=== PATIENT | female | born 1995 ===

== ENCOUNTER 2021-03-01 01:32 | Emergency (ER) | payer MEDICAID, SELFPAY ==
[2021-03-01 02:08] VITALS: BP 123/60; PULSE 103; RESP 14; TEMP 36.2; O2SAT 100; BMI 27.1
[2021-03-01 02:57] VITALS: BP 124/71; PULSE 108; RESP 16; TEMP 37.1; O2SAT 100
[2021-03-01 03:31] LABS: Appearance Urine CLEAR; Color Urine YELLOW; Glucose Urine UA NEG (NEG); Leukocyte Esterase Urine NEG (NEG); Nitrite Urine NEG (NEG); Urine Blood NEG (NEG); Urine Ketones NEG (NEG); Urine Protein NEG (NEG-TRACE)
[2021-03-01 03:35] LABS: UPreg QC Valid YES; Urine Pregnancy POSITIVE (NEGATIVE)
--- NOTE | 2021-03-01 03:55 | ED.GENADULT ---
HPI - General Adult General Chief complaint: Fever Stated complaint: Flu like/Vaginal Bleeding Time Seen by Provider: 03/01/21 02:25 Source: patient Mode of arrival: ambulatory History of Present Illness HPI narrative: 25-year-old female presents with subjective fevers, body aches, headache and states that she has having lower abdominal pelvic cramping along with vaginal bleeding but reports that she also has a positive urine test. She states that she was worked up it [facility] just prior to presentation here but did not stay to be seen. She denies having received COVID-19 vaccine in states her LMP is 9/6. Related Data Previous Rx's Medication Instructions Recorded amoxicillin 500 mg capsule 1,000 mg PO TID 5 Days #30 cap 03/01/21 Allergies Allergy/AdvReac Type Severity Reaction Status Date / Time No Known Allergies Allergy Verified 03/01/21 03:04 Review of Systems Review of Systems: Pertinent positives and negatives as stated in HPI 10 point review of systems is otherwise negative. PMFSH Past Medical History Source: nursing notes reviewed Social History Social History Advance Directives: No Advance Directives Information Provided: No Patient : No Physical Exam Vital Signs: Vital Signs: Last Vital Signs Temp 99.1 F 03/01/21 04:19 Pulse 118 H 03/01/21 04:19 Resp 16 03/01/21 04:19 BP 124/61 03/01/21 04:19 Pulse Ox 99 03/01/21 04:19 Body Mass Index 27.1 VITAL SIGNS: Reviewed. GENERAL: Well developed, well nourished, in no acute distress. HEAD: Normocephalic/atraumatic EYES: PERRLA, EOMI EARS: Ext canals without abnormality, TMs non-bulging and non-erythematous NOSE: Nares patent bilateral OROPHARYNX: no oral lesions noted, posterior pharynx clear and non-erythematous without noted tonsillar enlargement/erythema/exudates NECK: Supple, no adenopathy LUNGS: Normal breath sounds. No adventitious sounds or accessory muscle use. SpO2<100> CARDIOVASCULAR: Regular rate and rhythm without noted murmurs ABDOMEN: Soft, non-tender, non-distended with bowel sounds. SKIN: Inspection of the skin reveals no rashes NEUROLOGIC: Alert and oriented x 4. Course Course Course Narrative: 25-year-old female with history and clinical presentation after review of all lab work completed at [facility] which indicates that patient is negative for rapid strep as well as negative for COVID-19. However, on review of remaining lab work patient is noted to have a leukocytosis with a negative urinalysis. Patient is noted to be tachycardic here, however afebrile. Will pursue CRP, Monospot, as well as a quantitative beta hCG. On review of all investigations Monospot was negative, bhcg-37, and CRP elevated at 5.19. Taken in conjunction patient was informed that either the was very early on or the vaginal bleeding may be secondary to ongoing miscarriage. However, due to positive test will defer proceeding with chest x-ray to confirm clinical diagnosis of pneumonia and patient will be presumptively provided with antibiotics for community-acquired pneumonia with amoxicillin. Patient was aware of all results and plan. She was recommended to repeat her beta-hCG levels in 1 week. Medical Decision Making Lab Data Labs: Lab Results 03/01/21 03/01/21 03/01/21 Range/Units 03:02 03:02 04:37 C-Reactive Protein 5.19 H (< or = 0.50) mg/dL Beta HCG, Quant 37 mIU/mL Urine Color YELLOW Urine Appearance CLEAR Urine pH 6.0 (5.0-8.0) Ur Specific [place] 1.020 (1.005-1.025) Urine Protein NEG (NEG-TRACE) MG/DL Urine Glucose (UA) NEG (NEG) MG/DL Urine Ketones NEG (NEG) MG/DL Urine Blood NEG (NEG) Urine Nitrite NEG (NEG) Ur Leukocyte Esterase NEG (NEG) Urine Test POSITIVE H (NEGATIVE) Monoscreen (Negative) 03/01/21 Range/Units 04:37 C-Reactive Protein (< or = 0.50) mg/dL Beta HCG, Quant mIU/mL Urine Color Urine Appearance Urine pH (5.0-8.0) Ur Specific [place] (1.005-1.025) Urine Protein (NEG-TRACE) MG/DL Urine Glucose (UA) (NEG) MG/DL Urine Ketones (NEG) MG/DL Urine Blood (NEG) Urine Nitrite (NEG) Ur Leukocyte Esterase (NEG) Urine Test (NEGATIVE) Monoscreen Negative (Negative) Discharge Plan Discharge Clinical Impression: Pneumonia affecting Patient Disposition: Home, Self-Care Instructions: (ED), Pneumonia (ED) Additional Instructions: 1. Complete the entire course of antibiotics. 2. Recommend following up with your primary care provider on Wednesday morning and obtaining a prescription to repeat your beta hCG. Return to the ER for acute worsening of symptoms. Prescriptions: New amoxicillin 500 mg capsule 1,000 mg PO TID 5 Days Qty: 30 RF: 0 Referrals: [facility] [Primary Care Provider] - 2 days
[2021-03-01 04:19] VITALS: BP 124/61; PULSE 118; RESP 16; TEMP 37.3; O2SAT 99
[2021-03-01] MEDS: Acetaminophen 325 MG TABLET 975 MG PO (04:33)
[2021-03-01 05:03] LABS: Monotest Negative (Negative)
[2021-03-01 05:04] LABS: C Reactive Protein 5.19 mg/dL (< or = 0.50)
[2021-03-01 05:24] LABS: HCG Quantitative 37 mIU/mL
[2021-03-01 06:05] VITALS: BP 105/59; PULSE 98; RESP 16; TEMP 37.1; O2SAT 98
[2021-03-01] MEDS: Amoxicillin 500 MG CAPSULE 1000 MG PO (06:06)
== END 2021-03-01 06:20 | disposition home or self-care (01) ==
PROVIDERS: Emergency Provider Student in an Organized Health Care Education/Training Program
DX: O99.511 Diseases of the respiratory system complicating pregnancy, first trimester (principal); J18.9 Pneumonia, unspecified organism; R50.9 Fever, unspecified; Z3A.01 Less than 8 weeks gestation of pregnancy
CPT/HCPCS: 36415; 81003; 81025; 84702; 86140; 86308; 99283; 99284

== ENCOUNTER 2021-07-08 11:02 | Emergency (ER) | payer MEDICAID, SELFPAY ==
[2021-07-08 12:21] VITALS: BP 130/56; PULSE 75; RESP 18; TEMP 36.7; O2SAT 100; BMI 26.2
[2021-07-08 13:11] LABS: COVID-19 Test Positive (Negative)
--- NOTE | 2021-07-08 13:11 | ED_ITS ---
HPI - General Adult General Chief complaint: General Medical Stated complaint: fever/headache Time Seen by Provider: 07/08/21 13:11 Source: patient Mode of arrival: ambulatory Limitations: no limitations History of Present Illness HPI narrative: 26-year-old female came in for evaluation of generalized weakness, headache, coughing, chest pain with coughing. No sick contact exposure, no recent travel. Patient took 1 dose of COVID Pfizer vaccination. Related Data Previous Rx's Medication Instructions Recorded amoxicillin 500 mg capsule 1,000 mg PO TID 5 Days #30 cap 03/01/21 Allergies Allergy/AdvReac Type Severity Reaction Status Date / Time No Known Allergies Allergy Verified 03/01/21 03:04 Review of Systems Review of Systems: All other systems are reviewed and are negative Constitutional: Reports as per HPI and Reports no additional constitutional complaints Eyes: Reports as per HPI and Reports no additional eye complaints Reports system reviewed and no additional complaints, except as documented Cardiovascular: Reports as per HPI and Reports no additional cardiovascular complaints Respiratory: Reports as per HPI and Reports no additional respiratory complaints Gastrointestinal: Reports as per HPI and Reports no additional gastrointestinal complaints Genitourinary: Reports no additional female genitourinary complaints Musculoskeletal: Reports no additional musculoskeletal complaints Skin/Breast: Reports system reviewed and no additional complaints, except as docu Psychiatric: Reports no additional psychiatric complaints Endocrine: Reports no additional endocrine complaints Hematologic/Lymphatic: Reports no additional hematologic/lymphatic complaints Allergic/Immunologic: Reports no additional allergic/immunologic complaints Reports system reviewed and no additional complaints, except as documented and Reports Abnormal speech present [facility] Social History Social History Advance Directives: No Advance Directives Information Provided: No Patient : Yes Physical Exam Vital Signs: Vital Signs: Last Vital Signs Temp 98.1 F 07/08/21 12:21 Pulse 75 07/08/21 12:21 Resp 18 07/08/21 12:21 BP 130/56 L 07/08/21 12:21 Pulse Ox 100 07/08/21 12:21 BMI result Body Mass Index 26.2 Vital signs have been reviewed as appeared to be correct. Blood pressure normal. Heart rate normal. Respiration rate normal. Temperature normal. Oxygen saturation normal. Appearance: Alert. Oriented X3. No acute distress. Head: Normal external exam. Normocephalic. Atraumatic. No Crowder signs noted. No raccoon eyes noted Eyes: PERRLA. EOMI. Conjunctiva and sclera normal. Eyelids normal. ENT: TM's Normal. Pharynx normal. Uvula midline. Moist mucous membranes. No trismus noted. No drooling noted. No muffled voice noted. Neck: Normal inspection. Neck supple. FROM. No adenopathy. Thyroid Normal. No meningeal signs. No neck mass noted. CVS: Normal heart rate and rhythm. Heart sound normal. No murmurs noted. Pulses normal throughout. Respiratory: No respiratory distress. Painless inspiration. Breath sounds normal. No wheezes/rales/rhonchi noted. Chest nontender. No accessory muscle usage noted or decreased air movement noted. Abdomen: Soft and nontender. Bowel sounds normal in all 4 quadrants. No distention noted. No organomegaly noted. No visible injury noted. Back: No CVA tenderness. Full range of motion noted. Skin: Skin warm and dry. Normal skin color. Normal skin turgor. No rashes/lesions/lacerations noted. Extremities: No lower extremity edema. Extremities exhibit normal range of motion. Extremities nontender. Neuro: Oriented X 3. Cranial nerve exam: II-XII are grossly intact No motor deficit. No sensory deficit. Reflexes normal. Course Course Course Narrative: Assessment and plan. 26-year-old female came in with viral infection symptoms, patient tested positive for COVID. Patient was instructed to self quarantine, both keep social distancing, frequent hand washing, wear that face mask at all times Medical Decision Making Lab Data Lab results reviewed: Yes I reviewed the patient's lab results. Labs: Lab Results 07/08/21 Range/Units 12:44 COVID-19 (NARINDER) Positive A (Negative) COVID-19 Clin Com See Note Discharge Plan Discharge Clinical Impression: COVID-19 virus infection Patient Disposition: Home, Self-Care Instructions: COVID-19 (Coronavirus Disease 2019) (ED) Prescriptions: No Action amoxicillin 500 mg capsule 1,000 mg PO TID 5 Days Qty: 30 RF: 0 Referrals: [facility] [Primary Care Provider] - 2 days Stand Alone Forms: Work/School Release
== END 2021-07-08 13:36 | disposition home or self-care (01) ==
PROVIDERS: Emergency Provider Emergency Medicine
DX: U07.1 COVID-19 (principal)
CPT/HCPCS: 87635; 99283

== ENCOUNTER 2022-12-02 11:59 | Emergency (ER) | payer MEDICAID, SELFPAY ==
--- NOTE | ~2022-12-02 | XR_ITS ---
EXAMINATION: XR CHEST CLINICAL INFORMATION: Pain COMPARISON: Previous chest x-ray April 2017 TECHNIQUE: 2 views of the chest were obtained. FINDINGS: No significant abnormality is noted involving the heart, lungs, mediastinum, bony thorax or soft tissues. XR/XR chest 2V IMPRESSION: Unremarkable examination.
[2022-12-02 12:29] VITALS: BP 134/87; PULSE 81; RESP 18; TEMP 36.4; O2SAT 100; BMI 27.7
--- NOTE | 2022-12-02 12:30 | ED_ITS ---
HPI - Dental/Oral General Chief complaint: Dental/Oral Stated complaint: pain in molar, hurts to breath Time Seen by Provider: 12/02/22 14:12 Source: patient, RN notes reviewed and old records reviewed Mode of arrival: ambulatory History of Present Illness HPI Narrative: 27-year-old female with no significant past medical history presenting to the ED complaining of acute on chronic left lower molar pain and intermittent lung pain with deep breathing x 2 months. Admits saw dentist last week, attempted root canal however patient was too sensitive, states has been taking amoxicillin for about 5 days without relief. Denies fall/injury, trauma, pedal edema, calf tenderness, recent travel, cigarette smoking, history of clots, hematu deysi/dysuria. Admits does have Depo-Provera MD Complaint: tooth pain Related Data Previous Rx's Medication Instructions Recorded amoxicillin 500 mg capsule 1,000 mg PO TID 5 days #30 caps 03/01/21 tramadol 50 mg tablet 50 mg PO Q8H PRN pain, severe 3 12/02/22 days #5 tabs Allergies Allergy/AdvReac Type Severity Reaction Status Date / Time No Known Allergies Allergy Verified 03/01/21 03:04 Review of Systems Review of Systems: Constitutional: No Fever, No Chills ENT/Mouth: +dental pain, No Ear Pain, No Nasal Congestion, No sore throat, No Rhinorrhea, No Swallowing Difficulty Cardiovascular: No Chest Pain, No SOB, +lung pain Respiratory: No Cough, No Sputum, No Wheezing Gastrointestinal: No Nausea, No Vomiting, No Abdominal pain Genitourinary: No Dysuria, No Hematuria, No Urinary Incontinence/retention, No Flank Pain Musculoskeletal: No joint pain, No Myalgias Skin: No Skin Lesions, No rash Neuro: No Weakness Yes all other systems are reviewed and are negative Constitutional: Constitutional: Reports as per [facility] Past Medical History Attestation statement: The following information was validated with the patient. Source: old records reviewed Social History Social History Alcohol intake: never Smoked in Last 30 Days: No Use of substances other than those prescribed or required for medical reasons: No Advance Directives: No Advance Directives Information Provided: No Physical Exam Vital Signs: Vital Signs: Last Vital Signs Temp 97.6 F 12/02/22 12:29 Pulse 81 12/02/22 12:29 Resp 18 12/02/22 12:29 BP 134/87 12/02/22 12:29 Pulse Ox 100 12/02/22 12:29 O2 Del Method Nasal Cannula 12/02/22 12:29 BMI result Body Mass Index 27.7 Const: General: cooperative, healthy appearing and no acute distress Orientation/consciousness: patient oriented x3 Limitations: no limitations HEENT: Other: + left lower molar cracked with previous filling. Mild gingival tenderness, no appreciable swelling/erythema, no fluctuance or induration. Head: Yes normal to inspection and Yes atraumatic Ears: hearing grossly normal bilaterally and mastoids normal General nose exam: Normal external nose present Face and sinus: Yes normal facial exam and No edema Throat: Yes posterior oropharynx normal, Yes tonsils normal and Yes uvula midline Eyes: General: appearance normal, both eyes and all related structures EOM: EOMs intact bilaterally Neck: Neck: Yes normal visual inspection and Yes no meningeal signs Chest: Chest palpation & inspection: normal inspection of the chest, no crepitus and no tenderness Resp: Effort & Inspection: normal respiratory effort, no respiratory distress and no stridor Auscultation: clear to auscultation bilaterally Cardio: Rate: regular rate Heart sounds: S1 normal heart sound present and S2 normal heart sound present GI: Inspection: Yes normal to inspection Palpation (GI): Soft to palpation, nontender and no guarding : General: Yes no CVA tenderness Back/Spine/Pelvis: Back: no CVA tenderness Skin: Rashes: no rashes Wounds: no wounds Neuro: General: patient oriented x3, tone normal and no meningeal signs Gait exam (Neuro): Normal gait present Extrem: General: Yes normal to inspection, Yes no pedal edema and Yes no calf tenderness Course Course Course Narrative: RME - 27 yo female presents to the ER for evaluation of left lower dental pain for the last 2-3 weeks. Is currently on abx from her dentist who she saw 1.5 weeks ago for the pain. Also reports pain when she breaths in both of her lungs & chest that started 2 months ago. SpO2 100%. HR 80s. Lungs CTAB Plan: CXR, EKG, dental eval 1415--XR chest 2V IMPRESSION: Unremarkable examination. 1440--patient eloped the ED after labs were drawn as needed to pick son up from school. Medical Decision Making Medical Decision Making MDM Narrative: 27-year-old female with no significant past medical history presenting to the ED complaining of acute on chronic left lower molar pain and intermittent lung pain with deep breathing x 2 months. On exam vital signs stable, NAD, nontoxic appearing, physical exam as noted above. Left lower molar gingival tenderness without appreciable abscess. Uvula midline, talking in complete sentences, lung s CTA, no rash. Concern for dental caries vs gingivitis vs possible PE or pneumonia although less likely with duration of symptoms. ACS unlikely. Plan: EKG, CXR, labs Please refer to course for remaining clinical decision making, interpretation of labs/imaging results, and discussions with consultants and/or family members. Differential Diagnosis Differential Diagnoses: The differential diagnosis associated with the presentation includes As above Admission/Observation Consideration of admission/observation: Escalation of care including admission/observation considered Lab Data [facility] Lab Attestation statement: I reviewed the patient's lab results. 12/02/22 14:42 12/02/22 14:42 Labs: Lab Results 12/02/22 12/02/22 12/02/22 Range/Units 14:42 14:42 14:42 WBC 8.0 (4.8-10.8) X10*3/uL RBC 5.11 (4.20-5.50) X10*6/uL Hgb 13.3 (12.0-16.0) g/dl Hct 40.7 (37.0-47.0) % MCV 79.6 L (80.0-98.0) fL MCH 26.0 L (27.0-33.0) pg MCHC 32.7 (31.0-35.0) g/dl RDW 12.7 (11.0-16.0) % Plt Count 277 (160-400) X10*3/uL MPV 10.3 (9.4-12.3) fL Immature Gran % (Auto) 0.2 (0.0-0.4) % Neut % (Auto) 66.6 (45-73) % Lymph % (Auto) 27.3 (20-40) % [place] % (Auto) 5.5 (2-11) % Eos % (Auto) 0.0 (0-4) % Baso % (Auto) 0.4 (0-2) % Lymph # (Auto) 2.2 (1.2-4.9) X10*3/uL [place] # (Auto) 0.4 (0.1-1.2) X10*3/uL Eos # (Auto) 0.0 (0.0-0.4) X10*3/uL Baso # (Auto) 0.0 (0.0-0.2) X10*3/uL Abs Immat Gran (auto) 0.02 (0.00-0.03) X10*3/uL Absolute Neuts (auto) 5.3 (2.0-8.3) x10*3/uL Absolute Nucleated RBC 0.000 (0.0-0.012) X10*3/uL Nucleated RBC % (auto) 0.0 (0.0-0.2) /100WBC D-Dimer High Sensitivty < 150 NG/ML Sodium 141 (135-145) mmol/L Potassium 3.9 (3.3-5.1) mmol/L Chloride 107 (96-108) mmol/L Carbon Dioxide 27 (22-29) mmol/L Anion Gap 11 L (12-20) BUN 12 (9-16) mg/dL Creatinine 0.76 (0.5-1.4) mg/dL Estim Creat Clear Calc 103.5 Estimated GFR > 60 Random Glucose 94 (60-115) mg/dL Calcium 9.4 (8.4-10.2) mg/dL Troponin I High Sens (<3.5-17.0) ng/L 12/02/22 Range/Units 14:42 WBC (4.8-10.8) X10*3/uL RBC (4.20-5.50) X10*6/uL Hgb (12.0-16.0) g/dl Hct (37.0-47.0) % MCV (80.0-98.0) fL MCH (27.0-33.0) pg MCHC (31.0-35.0) g/dl RDW (11.0-16.0) % Plt Count (160-400) X10*3/uL MPV (9.4-12.3) fL Immature Gran % (Auto) (0.0-0.4) % Neut % (Auto) (45-73) % Lymph % (Auto) (20-40) % [place] % (Auto) (2-11) % Eos % (Auto) (0-4) % Baso % (Auto) (0-2) % Lymph # (Auto) (1.2-4.9) X10*3/uL [place] # (Auto) (0.1-1.2) X10*3/uL Eos # (Auto) (0.0-0.4) X10*3/uL Baso # (Auto) (0.0-0.2) X10*3/uL Abs Immat Gran (auto) (0.00-0.03) X10*3/uL Absolute Neuts (auto) (2.0-8.3) x10*3/uL Absolute Nucleated RBC (0.0-0.012) X10*3/uL Nucleated RBC % (auto) (0.0-0.2) /100WBC D-Dimer High Sensitivty NG/ML Sodium (135-145) mmol/L Potassium (3.3-5.1) mmol/L Chloride (96-108) mmol/L Carbon Dioxide (22-29) mmol/L Anion Gap (12-20) BUN (9-16) mg/dL Creatinine (0.5-1.4) mg/dL Estim Creat Clear Calc Estimated GFR Random Glucose (60-115) mg/dL Calcium (8.4-10.2) mg/dL Troponin I High Sens < 2.7 (<3.5-17.0) ng/L Independent Interpretation I performed an independent interpretation of an: EKG (EKG normal sinus rhythm at a rate of 70. PA interval 144. QTC 406. No STEMI) Radiology Impression Discussion of test interpretation with radiology: I have reviewed the radiologist's reading. External Record Review External record reviewed: Inpatient record, Office record, Outpatient record, Prior outpatient labs, Prior outpatient radiology, Primary care record and Outside ED record Tests considered The following testing was considered but not selected: As above Discharge Plan Discharge Clinical Impression: Toothache, Chest discomfort Patient Disposition: Elopement Prescriptions: New tramadol 50 mg tablet 50 mg PO Q8H PRN (Reason: pain, severe) 3 Days Qty: 5 0RF No Action amoxicillin 500 mg capsule 1,000 mg PO TID 5 Days Qty: 30 0RF Interventions: ED Discharge Assessment Last Done: 12/02/22 14:53 Discharge Date/Time: 12/02/22 14:53
--- NOTE | 2022-12-02 12:32 | ECG_ITS ---
Test Reason : CHEST PAIN Blood Pressure : / mmHG Vent. Rate : 070 BPM Atrial Rate : 070 BPM P-R Int : 144 ms QRS Dur : 072 ms QT Int : 376 ms P-R-T Axes : 031 059 020 degrees QTc Int : 406 ms Normal sinus rhythm Normal ECG No previous ECGs available Referred By: Elin Bergman Electronically Signed By:MARY GARCÍA MD
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
--- OUTSIDE RECORDS SUMMARY | 2022-12-02 14:28 | XMS_ITS | Continuity of Care Document ---
Author Name Unknown Organization [facility] Address [address] [place] [address]- Care Team Providers Care Surgical Sales Representative Name Role Phone Vahe DAMON, Angie Bates Primary Care Lorie parisi [id number] Date[facility] 07/26/20 - 10/27/[address] [address]- Attending Physician: Not on Staff, Attending MD Referring Physician: Angie Cotter NP Allergies, Adverse Reactions, Alerts Substance Reaction Severity Status NKA Active Immunizations Given and Recorded Vaccine Date Status Refusal Reason tetanus/diphtheria/pertussis, acel(Tdap) 08/09/20 Given tetanus/diphtheria/pertussis, acel(Tdap) 10/13/18 Given influenza virus vaccine, inactivated 05/24/20 Give n Medications acetaminophen 325 mg oral tablet 650 mg, By Mouth, Every 4 hours, PRN, (1-3), may give 325mg per patient preference and re-dose [id number] within 4 hours, if needed. Patient should [...] 2 Refills, Maintenance, 08/30/20 16:21:00 EST, Capsule, [facility]/pharmacy #[id number], Partial fill upon [...] 08/30/20 16:21:00 EST, Route to [facility]acy Electronically, [id number], Partial fill upon patient requestif the [...] 09/22/20 12:09:00 EDT, Route to Pharmacy Electronically, [facility]/pharmacy #[id number], Partial fill upon patientrequest if the [...] 0 Refills, Maintenance, 08/30/20 16:22:00 EST, Tablet, [id number], Partial fill upon [...] varicella, non-immune(Confirmed) Active Visual hallucinations(Confirmed) Active 1Per [facility] chart in [facility]IS Social History Social History Type Response Smoking Status Former smoker, quit more than 30 days ago entered on: 02/27/20 Sex
--- OUTSIDE RECORDS SUMMARY | 2022-12-02 14:28 | XMS_ITS | Continuity of Care Document ---
Author Name Unknown Organization [facility] Address [address] [place] [address]- Care Team Providers Care Ordnance Engineering Technician Name Role Phone Vahe TECHNICAL ANALYST, Angie Bates Primary Care Lorie isak Encounter [facility] Date(s): 05/28/21 - 06/28/[address] [address]- Attending Physician: Not on Staff, Attending MD [...] 2012 Active Maternal varicella, non-immune(Confirmed) Active 1Per [facility] chart in CIS Social History Social History Type Response Smoking Status Never (less than 100 in lifetime) entered on: 05/27/21 Sex
--- OUTSIDE RECORDS SUMMARY | 2022-12-02 14:28 | XMS_ITS | Continuity of Care Document ---
Author Name Unknown Organization [facility] ter Address [address] [place] [address]- Care Team Providers Care Dressmaker Garment Fitter Name Role Phone Vahe DAMON, Angie Bates Primary Care Lorie isak [place] [facility] [place] 08/13/20 - 09/12/[address] [address] Attending Physician: Admtr, Hilda Admitting Physician: AdmtrHilda Referring Physician: Admtr, Ar8 Allergies, Adverse Reactions, Alerts Substance Reaction Severity [...] 2 Refills, Maintenance, 08/30/20 16:21:00 EST, [facility], [id number], Partial fill upon patient request if the prescription is for a schedule II opioid d... Start Date: 08/30/20 Status: Ordered ferrous sulfate 325 mg oral enteric coated tablet 325 mg, 1, tablet, By Mouth, Daily, # 30 tablet, Refills 2, Tot. Refills 2, Maintenance, 08/30/20 16:21:00 EST, Route to Pharmacy Electronically, [facility]/pharmacy #[id number], Partial fill upon patient requestif the prescription is for a schedule II opioid natalie... Start Date: 08/30/20 Status: Ordered ferrous sulfate 325 mg oral tablet 1 tablet = 325 mg, By Mouth, 3 times a day, # 270 tablet, 2 Refills, Maintenance, 07/24/20 15:56:00EST, Tablet, [facility]/pharmacy #[id number], Partial fill upon patient request if the prescription is for a schedule II opioid drug., 158, cm, 07/12/20 16:55:00 ES... Start Date: 07/24/20 Status: Ordered Multivitamins with Folic Acid 1 mg oral tablet 1 tablet, By Mouth, Daily, # 60 tablet, 6 Refills, Maintenance, 08/09/20 11:52:00 EST, Tablet, [facility]/pharmacy #[id number], 1 tablet By Mouth Daily, 157, cm, 08/09/20 10:47:00 EST, Height, 65.45, kg, 08/01/2116:36:00 EST, Dry Weight Start Date: 08/09/20 Status: Ordered Vitamin C 500 mg oral tablet 1 tablet = 500 mg, By Mouth, Daily, # 90 tablet, 0 Refills, Maintenance, 08/30/20 16:22:00 EST, Tablet, [facility]/pharmacy #[id number], Partial fill upon patient request if [...] Maternal varicella, non-immune(Confirmed) Active Visual hallucinations(Confirmed) [facility] Social History Social History Type Response Smoking Status Former smoker, quit more than 30 days ago entered on: 02/27/20 Sex
--- OUTSIDE RECORDS SUMMARY | 2022-12-02 14:28 | XMS_ITS | Continuity of Care Document ---
Author Name Unknown Organization [facility] Address [address], [address] [place] [address]- Care Team Providers Care Saw Edge Fuser Circular Name Role Phone Vahe LOCK EXPERT, Angie Bates Primary Care Lorie norwooddayana Encounter [facility] Date(s): 10/15/21 - 11/14/21 [facility] [address] [place] [address]- Allergies, Adverse Reactions, Alerts No Known Allergies Immunizations Given and Recorded Vaccine Date Status Refusal Reason tetanus/diphtheria/pertussis, acel(Tdap) 10/24/21 Given tetanus/diphtheria/pertussis, acel(Tdap) 08/09/20 Given tetanus/diphtheria/pertussis, acel(Tdap) 10/13/18 Given SARS-CoV-2 mRNA ([id number]) vax 08/19/21 Given SARS-CoV-2 (COVID-19) mRNA BNT-162b2 [...] Active 1Problem added by Discern Expert 2Per [facility] chart in CIS Social History Social History Type Response Smoking Status Never (less than 100 in lifetime) entered on: 05/27/21 Sex
--- OUTSIDE RECORDS SUMMARY | 2022-12-02 14:28 | XMS_ITS | Continuity of Care Document ---
Author Name Unknown Organization [facility] Address [address] [place] [address]- Care Team Providers Care Bottom Hoop Driver Name Role Phone Isreal Patrick NP Primary Care Physician Encounter [facility] Date(s): 06/10/20 - 07/25/[address] [address]- Attending Physician: Not on Staff, Attending MD Referring Physician: Isreal Patrick NP Allergies, Adverse Reactions, Alerts Substance Reaction [...] varicella, non-immune(Confirmed) Active Visual hallucinations(Confirmed) Active 1Per [facility] chart in CIS Social History Social History Type Response Smoking Status Former smoker, quit more than 30 days ago entered on: 02/27/20 Sex
--- OUTSIDE RECORDS SUMMARY | 2022-12-02 14:28 | XMS_ITS | Continuity of Care Document ---
Author Name Unknown Organization [facility] Address [address] [place] [address]- Care Team Providers Care Vocational Evaluator Name Role Phone Vahe SALES AND MARKETING EXECUTIVE, Angie Baets Primary Care Lorie isak Encounter [facility] Date(s): 09/06/20 - 10/06/[address] [address]- Allergies, Adverse Reactions, Alerts Substance Reaction Severity Status NKA Active Immunizations Given and Recorded Vaccine Date Status Refusal Reason tetanus/diphtheria/pertussis, acel(Tdap) 08/09/20 Given tetanus/diphtheria/pertussis, acel(Tdap) 10/13/18 Given influenza virus vaccine, inactivated 05/24/20 Give n Medications acetaminophen 325 mg oral tablet 650 mg, By Mouth, Every 4 hours, PRN, (1-3), may give 325mg per patient preference and re-dose [id number] within 4 hours, if needed. Patient should [...] 2 Refills, Maintenance, 08/30/20 16:21:00 EST, Capsule, [facility]/pharmacy #[id number], Partial fill upon patient request if the prescription is for a schedule II opioid d... Start Date: 08/30/20 Status: Ordered docusate sodium 100 mg oral capsule 100 mg, 1, capsule, By Mouth, 2 times a day, PRN, # 60 capsule, Refills 0, Tot. Refills 0, Maintenance, Constipation, 09/22/20 12:09:00 EDT, Route to Pharmacy Electronically, [facility]/pharmacy #[id number], Partial fill upon patient request if the prescription is... Start Date: 09/22/20 Status: Ordered ferrous sulfate 325 mg oral enteric coated tablet 325 mg, 1, tablet, By Mouth, Daily, # 30 tablet, Refills 2, Tot. Refills 2, Maintenance, 08/30/20 16:21:00 EST, Route to Pharmacy Electronically, [facility]/pharmacy #[id number], Partial fill upon patient requestif [...] 09/22/20 12:09:00 EDT, Route to Pharmacy Electronically, [facility]/pharmacy #[id number], Partial fill upon patientrequest if the [...] 0 Refills, Maintenance, 08/30/20 16:22:00 EST, Tablet, [facility]/pharmacy #[id number], Partial fill upon patient request [...] varicella, non-immune(Confirmed) Active Visual hallucinations(Confirmed) Active 1Per [facility] chart in CIS Social History Social History Type Response Smoking Status Former smoker, quit more than 30 days ago entered on: 02/27/20 Sex
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
--- OUTSIDE RECORDS SUMMARY | 2022-12-02 14:28 | XMS_ITS | Continuity of Care Document ---
Author Name Unknown Organization [facility] ter Address [address] [place] [address]- Care Team Providers Care Traveling Accountant Name Role Phone Vahe DAMON, Angie Bates Primary Care Angusalfie parisi Encounter [facility] Date(s): 12/02/21 - 12/02/[address] [address] Discharge Disposition: A-D/C Home Attending Physician: Robert Koehler DO Admitting Physician: Robert Koehler DO Referring Physician: Loren Arenas DO Allergies, Adverse Reactions, Alerts No Known Allergies Immunizations Given and Recorded Vaccine Date Status Refusal Reason tetanus/diphtheria/pertussis, acel(Tdap) 10/24/21 Given tetanus/diphtheria/pertussis, acel(Tdap) 08/09/20 Given tetanus/diphtheria/pertussis, acel(Tdap) 10/13/18 Given SARS-CoV-2 mRNA ([id number]-[id number]) vax 08/19/21 Given SARS-CoV-2 (COVID-19) mRNA BNT-162b2 [...] Active 1Problem added by Discern Expert 2Per [facility] chart in CIS Social History Social History Type Response Smoking Status Never (less than 100 in lifetime) entered on: 05/27/21 Sex
--- OUTSIDE RECORDS SUMMARY | 2022-12-02 14:28 | XMS_ITS | Continuity of Care Document ---
Author Name Unknown Organization [facility] Address [address] [place] [address]- Care Team Providers Care Software Specialist Name Role Phone Vahe ASSISTANT PRESS OPERATOR OFFSET, Angie Bates Primary Care Lorie parisi Encounter [facility] Date(s): 09/18/20 - 10/18/[address] [address]- Allergies, Adverse Reactions, Alerts Substance Reaction Severity Status NKA Active Immunizations Given and Recorded Vaccine Date Status Refusal Reason tetanus/diphtheria/pertussis, acel(Tdap) 08/09/20 Given tetanus/diphtheria/pertussis, acel(Tdap) 10/13/18 Given influenza virus vaccine, inactivated 05/24/20 Give n Medications acetaminophen 325 mg oral tablet 650 mg, By Mouth, Every 4 hours, PRN, (1-3), may give 325mg per patient preference and re-dose [id number] within 4 hours, if needed. Patient should [...] 2 Refills, Maintenance, 08/30/20 16:21:00 EST, Capsule, [facility]/pharmacy #[id number], Partial fill upon patient request if [...] 08/30/20 16:21:00 EST, Route to Pharmacy Electronically, [facility]/pharmacy #[id number], Partial fill upon patient requestif the [...] 09/22/20 12:09:00 EDT, Route to Pharmacy Electronically, [facility]/pharmacy #[id number], Partial fill upon patientrequest if the [...] 0 Refills, Maintenance, 08/30/20 16:22:00 EST, Tablet, [facility]/pharmacy #[id number], Partial fill upon patient request if [...] varicella, non-immune(Confirmed) Active Visual hallucinations(Confirmed) Active 1Per [facility] chart in CIS Social History Social History Type Response Smoking Status Former smoker, quit more than 30 days ago entered on: 02/27/20 Sex
--- OUTSIDE RECORDS SUMMARY | 2022-12-02 14:28 | XMS_ITS | Continuity of Care Document ---
Author Name Unknown Organization [facility] Address [address] [place] [address]- Care Team Providers Care Olive Knocker Name Role Phone Vahe GERMAN TUTOR, Angie Bates Primary Care Angusy isak Encounter [facility] Date(s): 03/25/21 - 04/24/[address] [address]- Attending Physician: Hilda Decker Admitting Physician: AdmHilda abebe Referring Physician: AdmtrHilda Allergies, Adverse Reactions, Alerts Substance Reaction Severity Status NKA Active Immunizations Given and Recorded Vaccine Date Status Refusal Reason tetanus/diphtheria/pertussis, acel(Tdap) 08/09/20 Given tetanus/diphtheria/pertussis, acel(Tdap) 10/13/18 Given influenza virus vaccine, inactivated 05/24/20 Give n Medications acetaminophen 325 mg oral tablet 650 mg, By Mouth, Every 4 hours, PRN, (1-3), may give 325mg per patient preference and re-dose [id number] within 4 hours, if needed. Patient should [...] Pharmacy [facility]ically, [id number], Partial fill upon patientrequest if the prescription is for a schedule II op... Start Date: 09/22/20 Status: Ordered nitrofurantoin macrocrystals 100 mg oral capsule 1 capsule = 100 mg, By Mouth, 4 times a day, Contraindicated when CrCL less than 30 mL/min, # 28 capsule, 0 Refills, Soft Stop, 02/05/21 3:57:00 EDT, Capsule, [id number], Partial fill upon patient request if the prescription is for a schedule... Start Date: 02/05/21 Stop Date: 02/12/21 Status: Ordered Multivitamins with Folic Acid 1 mg oral tablet 1 tablet, By Mouth, Daily, # 60 tablet, 6 Refills, Maintenance, 08/09/20 11:52:00 EST, Tablet, [facility]/pharmacy #[id number], 1 tablet By Mouth Daily, 157, cm, 08/09/20 10:47:00 EST, Height, 65.45, kg, 08/01/2116:36:00 EST, Dry Weight Start Date: 08/09/20 Status: Ordered Vitamin C 500 mg oral tablet 1 tablet = 500 mg, By Mouth, Daily, # 90 tablet, 0 Refills, Maintenance, 08/30/20 16:22:00 EST, Tablet, [facility]/pharmacy #[id number], Partial fill upon patient request [...] varicella, non-immune(Confirmed) Active Visual hallucinations(Confirmed) Active 1Per [facility] chart in CIS Vital Signs Most recent to oldest [Reference Range]: 1 Height 160 cm (08/18/18 4:30 PM) Social History Social History Type Response Smoking Status Former smoker, quit more than 30 days ago entered on: 02/27/20 Sex
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
--- OUTSIDE RECORDS SUMMARY | 2022-12-02 14:28 | XMS_ITS | Continuity of Care Document ---
Author Name Unknown Organization [facility] Address [address] [place] [address]- Care Team Providers Care Leases And Land Supervisor Name Role Phone Vahe ASSOCIATE PROFESSOR OF ECONOMICS, Angie Bates Primary Care Lorie isak Encounter [facility] Date(s): 08/30/20 - 09/29/[address] [address]- Allergies, Adverse Reactions, Alerts Substance Reaction Severity Status NKA Active Immunizations Given and Recorded Vaccine Date Status Refusal Reason tetanus/diphtheria/pertussis, acel(Tdap) 08/09/20 Given tetanus/diphtheria/pertussis, acel(Tdap) 10/13/18 Given influenza virus vaccine, inactivated 05/24/20 Give n Medications acetaminophen 325 mg oral tablet 650 mg, By Mouth, Every 4 hours, PRN, (1-3), may give 325mg per patient preference and re-dose [id number] within 4 hours, if needed. Patient should [...] 08/30/20 16:21:00 EST, Route to Pharmacy Electronically, [facility]/pharmacy #[id number], Partial fill upon patient requestif the [...] 09/22/20 12:09:00 EDT, Route to Pharmacy Electronically, [facility]/pharmacy #[id number], Partial fill upon patientrequest if the prescription is for a schedule II op... Start Date: 09/22/20 Status: Ordered nitrofurantoin macrocrystals-monohydrate 100 mg oral capsule 1 capsule = 100 mg, By Mouth, 2 times a day, for 7 days, # 14 capsule, 0 Refills, Acute 10/01/20 0:57:00 EDT, 09/24/20 0:57:00 EDT, [facility], [id number], Partial fill upon patient request if the prescription is for a schedule II opioid drug., 1... Start Date: 09/24/20 Stop Date: 10/01/20 Status: Ordered Multivitamins with Folic Acid 1 mg oral tablet 1 tablet, By Mouth, Daily, # 60 tablet, 6 Refills, Maintenance, 08/09/20 11:52:00 EST, Tablet, [facility]/pharmacy #1026, 1 tablet By Mouth Daily, 157, cm, 08/09/20 10:47:00 EST, Height, 65.45, kg, 08/01/2116:36:00 EST, Dry Weight Start Date: 08/09/20 Status: Ordered Vitamin C 500 mg oral tablet 1 tablet = 500 mg, By Mouth, Daily, # 90 tablet, 0 Refills, Maintenance, 08/30/20 16:22:00 EST, Tablet, [facility]/pharmacy #[id number], Partial fill upon patient request [...] varicella, non-immune(Confirmed) Active Visual hallucinations(Confirmed) Active 1Per [facility] chart in CIS Social History Social History Type Response Smoking Status Former smoker, quit more than 30 days ago entered on: 02/27/20 Sex
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
--- OUTSIDE RECORDS SUMMARY | 2022-12-02 14:28 | XMS_ITS | Continuity of Care Document ---
Author Name Unknown Organization [facility] Address [address] [place] [id number]- Care Team Providers Care Director Of Health Care Marketing Name Role Phone Vahe ELECTRICAL ENGINEER MEP, Angie Bates Primary Care Lorie parisi Encounter [facility] [place] Date(s): 10/31/20 - 11/30/[address] [address] Attending Physician: Admtr, [id number] Admitting Physician: Admtr, [id number] Referring Physician: Admtr, [id number] Allergies, Adverse Reactions, Alerts Substance Reaction Severity Status NKA Active Immunizations Given and Recorded Vaccine Date Status Refusal Reason tetanus/diphtheria/pertussis, acel(Tdap) 08/09/20 Given tetanus/diphtheria/pertussis, acel(Tdap) 10/13/18 Given influenza virus vaccine, inactivated 05/24/20 Give n Medications acetaminophen 325 mg oral tablet 650 mg, By Mouth, Every 4 hours, PRN, (1-3), may give 325mg per patient preference and re-dose [id number] within 4 hours, if needed. Patient should [...] 2 Refills, Maintenance, 08/30/20 16:21:00 EST, Capsule, [facility]/pharmacy #[id number], Partial fill upon patient request if [...] varicella, non-immune(Confirmed) Active Visual hallucinations(Confirmed) Active 1Per [facility] chart in CIS Vital Signs Most recent to oldest [Reference Range]: 1 Height 160 cm (08/18/18 4:30 PM) Social History Social History Type Response Smoking Status Former smoker, quit more than 30 days ago entered on: 02/27/20 Sex
--- OUTSIDE RECORDS SUMMARY | 2022-12-02 14:28 | XMS_ITS | Continuity of Care Document ---
Author Name Unknown Organization [facility] ter Address [address] [place] [address]- Care Team Providers Care Professor Of Communication Name Role Phone Vahe DAMON, Angie Bates Primary Care Lorie isak Encounter [facility] [place] Date(s): 08/30/20 - 08/30/[address] [address] Discharge Disposition: A-D/C Home Attending Physician: Amy [...] 16:21:00 EST, Route to Pharmacy Electronically, [facility]/pharmacy #[id number], Partial fill upon patient requestif the prescription is for a schedule II opioid natalie... Start Date: 08/30/20 Status: Ordered ferrous sulfate 325 mg oral tablet 1 tablet = 325 mg, By Mouth, 3 times a day, # 270 tablet, 2 Refills, Maintenance, 07/24/20 15:56:00EST, Tablet, [facility]/pharmacy #[id number], Partial fill upon patient request if the prescription is for a schedule II opioid drug., 158, cm, 07/12/20 16:55:00 ES... Start Date: 07/24/20 Status: Ordered Multivitamins with Folic Acid 1 mg oral tablet 1 tablet, By Mouth, Daily, # 60 tablet, 6 Refills, Maintenance, 08/09/20 11:52:00 EST, Tablet, [facility]/pharmacy #[id number], 1 tablet By Mouth Daily, 157, cm, 08/09/20 10:47:00 EST, Height, 65.45, kg, 08/01/2116:36:00 EST, Dry Weight Start Date: 08/09/20 Status: Ordered Vitamin C 500 mg oral tablet 1 tablet = 500 mg, By Mouth, Daily, # 90 tablet, 0 Refills, Maintenance, 08/30/20 16:22:00 EST, Tablet, [facility]/pharmacy #[id number], Partial fill [...] varicella, non-immune(Confirmed) Active Visual hallucinations(Confirmed) Active 1Per [facility] chart in CIS Social History Social History Type Response Smoking Status Former smoker, quit more than 30 days ago entered on: 02/27/20 Sex
--- OUTSIDE RECORDS SUMMARY | 2022-12-02 14:28 | XMS_ITS | Continuity of Care Document ---
Author Name Unknown Organization [facility] ter Address [address] [place] [address]- Care Team Providers Care Account Development Associate Name Role Phone Vahe DAMON, Angie Bates Primary Care Angusalfie parisi Encounter [facility] [place] Date(s): 07/13/22 - 07/14/[address] [address]- Discharge Disposition: A-D/C Home Attending Physician: Georges Best MD Admitting Physician: Georges Best MD Referring Physician: Not on Staff, Referring MD Allergies, Adverse Reactions, Alerts No Known Allergies Immunizations Given and Recorded Vaccine Date Status Refusal Reason tetanus/diphtheria/pertussis, acel(Tdap) 10/24/21 Given tetanus/diphtheria/pertussis, acel(Tdap) 08/09/20 Given tetanus/diphtheria/pertussis, acel(Tdap) 10/13/18 Given SARS-CoV-2 mRNA ([id number]) vax 08/19/21 Given SARS-CoV-2 (COVID-19) mRNA BNT-162b2 vac 06/18/21 Given influenza virus vaccine, inactivated 06/18/21 Give n influenza virus vaccine, inactivated 05/24/20 Give n Medications docusate sodium 100 mg oral capsule 100 mg, 1, capsule, By Mouth, 2 times a day, PRN, # 20 capsule, Refills 0, Tot. Refills 0, Maintenance, for constipation, 01/05/22 16:45:00 EDT, Route to Pharmacy Electronically, [facility]/pharmacy #[id number], Partial fill upon patient request if the prescriptio... Start Date: 01/05/22 Status: Ordered ethinyl estradiol-norelgestromin 35 mcg-150 mcg/24 hr transdermal film, extended release 1 patch, Topically, Every week, apply a new patch weekly for 3 weeks, remove for 1 week, then repeat cycle, # 3 each, 11 Refills, Maintenance, 02/24/22 12:48:00 EDT, [facility]/pharmacy #[id number], Partial fill upon patient request if the prescription is for a sc... Start Date: 02/24/22 Status: Ordered ibuprofen 800 mg oral tablet 800 mg, 1, tablet, By Mouth, 3 times a day, PRN, # 30 tablet, Refills 1, Tot. Refills 1, Maintenance, as needed for pain, 12/24/21 14:41:00 EDT, Route to Pharmacy Electronically, [facility]/pharmacy #[id number], Partial fill upon patient request if the prescriptio... Start Date: 12/24/21 Status: Ordered Lidoderm 5% film 1 patch, Topically, Daily, remove patches after 12 hours, # 10 patch, 0 Refills, Maintenance, 08/21/21 11:07:00 EST, [facility]/pharmacy #[id number], Partial fill upon patient request if the prescription is for aschedule II opioid drug., 1 patch Topically Daily,I... Start Date: 08/21/21 Status: Ordered metroNIDAZOLE 0.75% topical gel 1 application, Topically, Daily, insert vaginall with applicator nightly for 5 nights., # 45 Gm, 0 Refills, Maintenance, 11/19/21 16:55:00 EDT, Gel, [facility]/pharmacy #[id number], Partial fill upon patient request if the prescription is for a schedule II opioid... Start Date: 11/19/21 Stop Date: 11/24/21 Status: Ordered MiraLax oral powder for reconstitution = 17 Gm, By Mouth, Daily, dissolve in water before taking, # 255 Gm, 0 Refills, Maintenance, 01/05/22 16:45:00 EDT, REC Powder, [facility]/pharmacy #[id number], Partial fill upon patient request if the prescription is for a schedule II opioid drug., 17 Gm By Mouth... Start Date: 01/05/22 Status: Ordered penicillin V potassium 500 mg oral tablet 1 tablet = 500 mg, By Mouth, 4 times a day, for 10 days, # 40 tablet, 0 Refills, Acute 07/23/22 22:08:00 EST, 07/13/22 22:08:00 EST, [id number], Partial fill upon patient request if the prescription is for a schedule II opioid drug., 160, cm,... Start Date: 07/13/22 Stop Date: 07/23/22 Status: Ordered Robitussin CoughGels 15 mg oral [...] 2013 Active Maternal varicella, non-immune Confirmed Active [address] [place] [address] [facility] Group chart in CIS Results Orders for Microbiology Reports Name Date Group A Strep Screen and Culture 07/13/22 Microbiology Reports TEST:Group A Strep Screen and Culture STATUS:Auth (Verified) BODY SITE: SOURCE:THROAT COLLECTED DATE/TIME:07/13/22 5:58 PM Group A Strep Screen and Culture SPECIMEN DESCRIPTION : THROAT SWAB SPECIAL REQUESTS : NONE DIRECT EXAM : RAPID GROUP A SCREEN IS POSITIVE, CULTURE NOT INDICATED. CULTURE : RAPID GROUP A SCREEN IS POSITIVE, CULTURE NOT INDICATED. REPORT STATUS : FINAL 07/13/2022 Vital Signs Most recent to oldest [Reference Range]: 1 2 3 Oxygen Saturation [94-100 %] 100 % (07/13/22 9:58 PM) 100 % (07/13/22 9:00 PM) 100 % (07/13/22 5:17 PM) Pulse Rate [55-90 bpm] 114 bpm *H* (07/13/22 9:58 PM) 122 bpm *H* (07/13/22 9:00 PM) 152 bpm *H* (07/13/22 5:17 PM) Blood Pressure [90-138/55-84 mm Hg] 118/62mm Hg (07/13/22 9:58 PM) 135/69mm Hg (07/13/22 9:00 PM) 155/85mm Hg *H* (07/13/22 5:17 PM) Respiratory Rate [16-30 br/min] 18 br/min (07/13/22 9:58 PM) 20 br/min (07/13/22 9:00 PM) 18 br/min (07/13/22 1:09 PM) Temperature [96.8-100.4 DegF] 99.6 DegF (07/13/22 9:58 PM) 101.8 DegF *H* (07/13/22 9:00 PM) 100.1 DegF (07/13/22 5:17 PM) Mode of Delivery (Oxygen) Room air (07/13/22 9:58 PM) Room air (07/13/22 9:00 PM) Room air (07/13/22 5:17 PM) Blood pressure sites Arm, left (07/13/22 9:58 PM) Arm, left (07/13/22 9:00 PM) Arm, left (07/13/22 5:17 PM) Temperature Route Oral (07/13/22 9:58 PM) Oral (07/13/22 9:00 PM) Oral (07/13/22 5:17 PM) Social History Social History Type Response Smoking Status Never (less than 100 in lifetime) entered on: 05/27/21 Sex Note * Georges Best MD: PERFORM Event Display: Patient Education Leaflets Authored Date: [id number] Pharyngitis: Strep (Confirmed) ?? [id number] Pharyngitis: Strep (Confirmed) You have had a positive test for strep throat. Strep throat is a bacterial infection that can be spread to others. It's spread by coughing, kissing, sharing glasses or eating utensils, or by touchingothers after touching your mouth or nose. Symptoms include: ??? Throat pain that's worse when you swallow ??? Aching all over ??? Headache ??? Swollen lymph nodes at the front of the neck ??? Red, swollen tonsils that may have white patches ??? Fever It's treated with antibiotic medicine. You should start to feel better in 1 to 2 days with treatment. Home care ??? Rest at home. Drink plenty of fluids so you won't get??dehydrated. ??? You can returnto school or work if you are feeling better, have been taking the antibiotic for at least 24 hours,and don't have a fever.? Take??antibiotic medicine for the full 10 days, even if you feel better. This is very important to make sure the infection is treated completely.??It's also important toprevent medicine-resistant germs from developing.??If you were given an antibiotic shot, you don't need any more antibiotics. ??? You may use acetaminophen??or ibuprofen to control pain or fever unless another medicine was prescribed for this. Talk with your healthcare provider before taking these m edicines if you have??chronic liver or kidney disease or if you have??had a stomach ulcer or digestive bleeding. ??? Throat lozenges or sprays help reduce pain. Gargling with warm saltwater will alsoease throat pain. Dissolve 1/2 teaspoon of salt in 1 glass of warm water. This may be useful just before meals.? Soft foods and cool or warm fluids are best. Don't eat salty or spicy foods. ?? Follow-up care Follow up with your healthcare provider if you don't get better over the next week. ?? When to get medical advice Call your healthcare provider right away if any of the following occur: ??? Fever of 100.4??F (38??C) or higher, or as directed by your healthcare provider ??? Ear pain, sinus pain, or headache that is new or gets worse ??? Painful lumps in the back of neck ??? Stiff neck ??? Lymph nodes??getting larger or becoming soft in the middle ??? You have trouble swallowing liquids or you can't??open yourmouth wide because of??throat pain ??? Signs of dehydration. These include very dark urine or no urine, sunken eyes, and dizziness. ??? Noisy breathing ??? Muffled voice ??? Rash ?? Call 911 Call 911right away if either of these occur: ??? Have trouble breathing ??? Can't swallow or talk ?? Prevention Here are steps you can take to help prevent an infection: ??? Wash your hands often with soap and clean, running water for at least 20 seconds. ??? Don???t have close contact with people who have sore throats, colds, or other upper respiratory infections. ??? Don???t smoke and stay away from secondhand smoke. ?? Last Reviewed Date: 2021 ?? 8180-9243 [employer]. All rights reserved. This information is not intended as a substitute for professional medical care. Always follow your healthcare professional's instructions. ?? Patient Care team information Care Team Personnel Name: Vahe DAMON, Angie Bates Position: [facility] PCO TA Member Role: PCP Address: Address: [address] [place] [address] Name: Georges Best MD Position: [facility] ED Medicine MD Member Role: ED Attending Physician Address: Address: [address] [place] [address] [place] [address]- Name: Bethany Parker Position: [facility] ED RN W/OE and Tasks Member Role: Patient Care Provider Care Team Related Persons Name: ELIN HENDRICKS Address: home [address] [place] [address] Name: ARTURO HENDRICKS Address: home [facility] Name: ABIGAIL HERNANDEZ Address: [place] [address] Name: AZCHARY FRAGA Address: [id number] Address: home [address] [address] Name: DAVI FRAGA Address: Address: home [address] Name: RICKIE FRAGA Address: Address: home [address]
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
--- OUTSIDE RECORDS SUMMARY | 2022-12-02 14:28 | XMS_ITS | Continuity of Care Document ---
Author Name Unknown Organization [facility] ter Address [address] [place] [address]- Care Team Providers Care Licensed Practical Vocational Nurse Name Role Phone Isreal Patrick NP Primary Care Physician [place] [facility] [id number] Date(s): 08/01/20 - 08/03/[address] [address]- Encounter Diagnosis Rh negative status during (Discharge Diagnosis) - 08/01/20 Visual hallucinations(Discharge Diagnosis) - 08/01/20 Depression during (Discharge Diagnosis) - 08/01/20 Discharge Disposition: A-D/C Home Attending Physician: Dana Mireles MD Admitting Physician: Dana Mireles MD Referring Physician: Dana Mireles MD Allergies, Adverse Reactions, Alerts Substance Reaction [...] Maternal varicella, non-immune(Confirmed) Active [facility](Confirmed) [facility] Diagnosis Diagnosis Type Effective Dates Health Status Clinical Service Informant Depression during Discharge Diagnosis 08/01/20 Rh negative status during Discharge Diagnosis 08/01/20 Visual hallucinations Discharge Diagnosis 08/01/20 Results Orders for Microbiology Reports Name Date Urine Culture (Culture Urine) 08/01/20 Microbiology Reports TEST:Urine Culture STATUS:Auth (Verified) BODY SITE: SOURCE:URINE COLLECTED DATE/TIME:08/01/20 6:50 PM Urine Culture SPECIMEN DESCRIPTION : URINE CLEAN CATCH/MIDSTREAM SPECIAL REQUESTS : NONE CULTURE : NO GROWTH REPORT STATUS : FINAL 08/03/2020 Radiology Reports * Exam Date Time Procedure Performing Provider Status 08/01/20 10:17 PM Chest 2 Views Frontal and Lat Yesenia Carter; Auth (Verified) Notes: (Chest 2 Views Frontal and Lat) Reason For Exam: Shortness of Breath RESULT: Chest 2 Views Frontal and Lat Chest 2 Views Frontal and Lat Reason: Shortness of Breath; Clinical Question(s): Pulmonary Embolism; Order Comment: Paged DO to change to portable, patient PUI. Rn will call back after speaking to the MD @ 1800. HS Patient has negative results: @ 2200 called transport to find out if they can reroute patient to xray instead of returning them [place] [facility] [place]. [facility] COMPARISON: None. FINDINGS: LINES AND TUBES: None. LUNGS AND PLEURA: Clear lungs. Normal pulmonary vascularity. No pleural effusion. No pneumothorax. HEART, MEDIASTINUM AND AMY: Heart is normal in size. Normal upper mediastinal and hilar contour. BONES AND SOFT TISSUES: No acute abnormality. IMPRESSION: No acute abnormality. WSN: [id number] Ordering Physician: Loren Arenas Dictated By: Phillip Rodriges MD Dictated Date/Time: 08/01/20 10:21 p Reviewed By: Phillip Rodriges MD Signed By: Phillip Rodriges MD Signed Date/Time: 08/01/20 10:21 pm Transcribed By: KATE Transcribed Date/Time: 08/01/20 10:21 pm Vital Signs Most recent to oldest [Reference Range]: 1 2 3 Height 157 cm (08/01/20 5:36 PM) 157 cm (08/01/20 3:46 PM) Weight 66 kg (08/02/20 10:28 AM) 65.45 kg (08/01/20 5:36 PM) 67.4 kg (08/01/20 3:32 PM) Oxygen Saturation [94-100 %] 99 % (08/03/20 12:02 PM) 100 % (08/03/20 11:01 AM) 99 % (08/03/20 10:01 AM) Pulse Rate [55-90 bpm] 115 bpm *H* (08/01/20 5:36 PM) Body Mass Index [18.5-24.99] 26.55 *H* (08/01/20 5:36 PM) Blood Pressure [90-138/55-84 mm Hg] 114/54mm Hg (08/03/20 12:02 PM) 126/60mm Hg (08/03/20 11:01 AM) 110/56mm Hg (08/03/20 10:01 AM) Respiratory Rate [16-30 br/min] 16 br/min (08/03/20 1:07 AM) 18 br/min (08/02/20 10:34 PM) 17 br/min (08/02/20 8:00 PM) Temperature [96.8-100.4 DegF] 98.1 DegF (08/03/20 9:01 AM) 98.4 DegF (08/02/20 10:34 PM) 98.8 DegF (08/02/20 4:15 PM) Mode of Delivery (Oxygen) Room air (08/02/20 2:53 AM) Blood pressure sites Arm, left (08/02/20 10:34 PM) Arm, left (08/02/20 2:53 AM) Arm, left (08/01/20 5:36 PM) Temperature Route Oral (08/03/20 9:01 AM) Oral (08/02/20 10:34 PM) Oral (08/02/20 2:53 AM) Dry Weight 65.45 kg (08/01/20 5:36 PM) 67.4 kg (08/01/20 3:32 PM) Weight Obtained Via Bed scale (08/02/20 10:28 AM) Patient/family stated (08/01/20 5:36 PM) Dry Weight Obtained Via Patient/family s tated (08/01/20 5:36 PM) Social History Social History Type Response Smoking Status Former smoker, quit more than 30 days ago entered on: 02/27/20 Sex
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
--- OUTSIDE RECORDS SUMMARY | 2022-12-02 14:28 | XMS_ITS | Continuity of Care Document ---
Author Name Unknown Organization [facility] Address [address] [place] [address]- Care Team Providers Care Professional Fee Coder Name Role Phone Vahe COMMERCIAL LINES INSURANCE AGENT, Angie Bates Primary Care Angusy isak Encounter [facility] [place] Date(s): 08/21/20 - 09/26/[address] [address]- Attending Physician: Amy Lai MD Admitting Physician: [...] give 325mg per patient preference and re-dose [id number] within 4 hours, if needed. Patient should [...] Maternal varicella, non-immune(Confirmed) Active Visual hallucinations(Confirmed) [facility] Social History Social History Type Response Smoking Status Former smoker, quit more than 30 days ago entered on: 02/27/20 Sex
--- OUTSIDE RECORDS SUMMARY | 2022-12-02 14:29 | XMS_ITS | Continuity of Care Document ---
Author Name Unknown Organization [facility] Address [address] [place] [address]- Care Team Providers Care Metal Numerical Tool Programmer Name Role Phone Vahe CASINO SLOT SUPERVISOR, Angie Bates Primary Care Angusy isak Encounter [facility] Date(s): 10/01/21 - 10/31/[address] [address]- Allergies, Adverse Reactions, Alerts No Known Allergies Immunizations Given and Recorded Vaccine Date Status Refusal Reason tetanus/diphtheria/pertussis, acel(Tdap) 10/24/21 Given tetanus/diphtheria/pertussis, acel(Tdap) 08/09/20 Given tetanus/diphtheria/pertussis, acel(Tdap) 10/13/18 Given SARS-CoV-2 mRNA ([id number]) vax 08/19/21 Given SARS-CoV-2 (COVID-19) mRNA BNT-162b2 [...] EDT, Supply Start Date: 09/13/20 Status: Ordered Lidoderm 5% film 1 patch, Topically, Daily, remove patches after 12 hours, # 10 patch, 0 Refills, Maintenance, 08/21/21 11:07:00 EST, [facility]/pharmacy #[id number], Partial fill upon patient request if [...] 2013 Active Maternal varicella, non-immune(Confirmed) Active 1Per [facility] chart in CIS Social History Social History Type Response Smoking Status Never (less than 100 in lifetime) entered on: 05/27/21 Sex
--- OUTSIDE RECORDS SUMMARY | 2022-12-02 14:29 | XMS_ITS | Continuity of Care Document ---
Author Name Unknown Organization [facility] Address [address] [place] [address]- Care Team Providers Care Revenue Research Analyst Name Role Phone Vahe ELEMENTARY SUPERVISOR, Angie Bates Primary Care Lorie isak [place] [facility] [place] 09/25/20 - 10/30/[address] [address]- Attending Physician: Not on Staff, Attending MD [...] give 325mg per patient preference and re-dose [id number] within 4 hours, if needed. Patient should [...] 2 Refills, Maintenance, 08/30/20 16:21:00 EST, Capsule, [facility]/pharmacy #[id number], Partial fill upon patient request [...] 08/30/20 16:21:00 EST, Route to Pharmacy Electronically, [facility]/pharmacy #[id number], Partial fill upon patient requestif [...] 09/22/20 12:09:00 EDT, Route to Pharmacy Electronically, [facility]/pharmacy #[id number], Partial fill upon patientrequest if [...] 0 Refills, Maintenance, 08/30/20 16:22:00 EST, Tablet, [facility]/pharmacy #[id number], Partial fill upon patient request [...] varicella, non-immune(Confirmed) Active Visual hallucinations(Confirmed) Active 1Per [facility] chart in CIS Social History Social History Type Response Smoking Status Former smoker, quit more than 30 days ago entered on: 02/27/20 Sex
--- OUTSIDE RECORDS SUMMARY | 2022-12-02 14:29 | XMS_ITS | Continuity of Care Document ---
Author Name Unknown Organization [facility] ter Address [address] [place] [address]- Care Team Providers Care Flatwork Catcher Name Role Phone Vahe ROUGH CARPENTER, Angie Bates Primary Care Angusy cucodayana [place] [facility] [place] - 10/27/[address] [address] Attending Physician: Amy Lai MD Admitting Physician: [...] give 325mg per patient preference and re-dose [id number] within 4 hours, if needed. Patient should [...] 2 Refills, Maintenance, 08/30/20 16:21:00 EST, Capsule, [facility]/pharmacy #[id number], Partial fill upon [...] 08/30/20 16:21:00 EST, Route to Pharmacy Electronically, [facility]/pharmacy #[id number], Partial fill upon patient requestif [...] 09/22/20 12:09:00 EDT, Route to Pharmacy Electronically, [facility]/pharmacy #[id number], Partial fill upon [...] Maternal varicella, non-immune(Confirmed) Active Visual [facility]inations(Confirmed) [facility] Social History Social History Type Response Smoking Status Former smoker, quit more than 30 days ago entered on: 02/27/20 Sex
--- OUTSIDE RECORDS SUMMARY | 2022-12-02 14:29 | XMS_ITS | Continuity of Care Document ---
Author Name Unknown Organization [facility] Address [address] [place] [address]- Care Team Providers Care Human Resources Executive Assistant Name Role Phone Vahe SPEECH ASSISTANT, Angie Bates Primary Care Lorie parisi [place] [facility] [place] 09/26/20 - 10/26/[address] [address]- Allergies, Adverse Reactions, Alerts Substance Reaction Severity Status NKA Active Immunizations Given and Recorded Vaccine Date Status Refusal Reason tetanus/diphtheria/pertussis, acel(Tdap) 08/09/20 Given tetanus/diphtheria/pertussis, acel(Tdap) 10/13/18 Given influenza virus vaccine, inactivated 05/24/20 Give n Medications acetaminophen 325 mg oral tablet 650 mg, By Mouth, Every 4 hours, PRN, (1-3), may give 325mg per patient preference and re-dose [id number] within 4 hours, if needed. Patient should [...] 2 Refills, Maintenance, 08/30/20 16:21:00 EST, Capsule, [facility]/pharmacy #[id number], Partial fill upon patient request [...] 08/30/20 16:21:00 EST, Route to Pharmacy Electronically, [facility]/pharmacy #[id number], Partial fill upon patient requestif [...] 09/22/20 12:09:00 EDT, Route to Pharmacy Electronically, [facility]/pharmacy #[id number], Partial fill upon patientrequest if [...] 0 Refills, Maintenance, 08/30/20 16:22:00 EST, Tablet, [facility]/pharmacy #[id number], Partial fill upon patient request [...] varicella, non-immune(Confirmed) Active Visual hallucinations(Confirmed) Active 1Per [facility] chart in CIS Social History Social History Type Response Smoking Status Former smoker, quit more than 30 days ago entered on: 02/27/20 Sex
--- OUTSIDE RECORDS SUMMARY | 2022-12-02 14:29 | XMS_ITS | Continuity of Care Document ---
Author Name Unknown Organization [facility] Address [address] [place] [address]- Care Team Providers Care Real Estate Professional Name Role Phone Vahe WILDLIFE BIOLOGIST, Angie Bates Primary Care Lorie parisi [id number] Date[facility] 01/30/[facility] - 04/09/[address] [address] Attending Physician: Not on Staff, Attending MD Allergies, Adverse Reactions, Alerts No Known Allergies Immunizations Given and Recorded Vaccine Date Status Refusal Reason tetanus/diphtheria/pertussis, acel(Tdap) 10/24/21 Given tetanus/diphtheria/pertussis, acel(Tdap) 08/09/20 Given tetanus/diphtheria/pertussis, acel(Tdap) 10/13/18 Given SARS-CoV-2 mRNA ([id number]) vax 08/19/21 Given SARS-CoV-2 (COVID-19) mRNA BNT-162b2 vac 06/18/21 Given influenza virus vaccine, inactivated 06/18/21 Give n influenza virus vaccine, inactivated 05/24/20 Give n Medications docusate sodium 100 mg oral capsule 100 mg, 1, capsule, By Mouth, 2 times a day, PRN, # 20 capsule, Refills 0, Tot. Refills 0, Maintenance, for constipation, 01/05/22 16:45:00 EDT, Route to Pharmacy Electronically, [facility]/pharmacy #[id number], Partial fill upon patient request if the prescriptio... Start Date: 01/05/22 Status: Ordered ethinyl estradiol-norelgestromin 35 mcg-150 mcg/24 hr transdermal film, extended release 1 patch, Topically, Every week, apply a new patch weekly for 3 weeks, remove for 1 week, then repeat cycle, # 3 each, 11 Refills, Maintenance, 02/24/22 12:48:00 EDT, [facility]/pharmacy #[id number], Partial fill upon patient request if the prescription is for a sc... Start Date: 02/24/22 Status: Ordered ibuprofen 800 mg oral tablet 800 mg, 1, tablet, By Mouth, 3 times a day, PRN, # 30 tablet, Refills 1, Tot. Refills 1, Maintenance, as needed for pain, 12/24/21 14:41:00 EDT, Route to Pharmacy Electronically, [facility]/pharmacy #[id number], Partial fill upon patient request if the prescriptio... Start Date: 12/24/21 Status: Ordered Lidoderm 5% film 1 patch, Topically, Daily, remove patches after 12 hours, # 10 patch, 0 Refills, Maintenance, 08/21/21 11:07:00 EST, [facility]/pharmacy #[id number], Partial fill upon patient request if the prescription is for aschedule II opioid drug., 1 patch Topically Daily,I... Start Date: 08/21/21 Status: Ordered metroNIDAZOLE 0.75% topical gel 1 application, Topically, Daily, insert vaginall with applicator nightly for 5 nights., # 45 Gm, 0 Refills, Maintenance, 11/19/21 16:55:00 EDT, Gel, [facility]/pharmacy #1026, Partial fill upon patient request if the prescription is for a schedule II opioid... Start Date: 11/19/21 Stop Date: 11/24/21 Status: Ordered MiraLax oral powder for reconstitution = 17 Gm, By Mouth, Daily, dissolve in water before taking, # 255 Gm, 0 Refills, Maintenance, 01/05/22 16:45:00 EDT, REC Powder, [facility]/pharmacy #[id number], Partial fill [...] 2013 Active Maternal varicella, non-immune Confirmed Active 1Per [facility] chart in [facility]IS Social History Social History Type Response Smoking Status Never (less than 100 in lifetime) entered on: 05/27/21 Sex Patient Care team information Personnel Name: Vahe DAMON, Angie Bates Address: Address: [address] [place] [address]
--- OUTSIDE RECORDS SUMMARY | 2022-12-02 14:29 | XMS_ITS | Continuity of Care Document ---
Author Name Unknown Organization [facility] Address [address] [place] [address]- Care Team Providers Care Sample Patternmaker Name Role Phone Vahe DAMON, Angie Bates Primary Care Lorie parisi Encounter [facility] [place] Date(s): 07/26/20 - 10/06/[address] [address]- Attending Physician: Not on Staff, Attending MD [...] give 325mg per patient preference and re-dose [id number] within 4 hours, if needed. Patient should [...] 2 Refills, Maintenance, 08/30/20 16:21:00 EST, Capsule, [facility]/pharmacy #[id number], Partial fill upon patient request [...] 08/30/20 16:21:00 EST, Route to Pharmacy Electronically, [facility]/pharmacy #[id number], Partial fill upon patient requestif [...] 09/22/20 12:09:00 EDT, Route to Pharmacy Electronically, [facility]/pharmacy #[id number], Partial fill upon patientrequest if [...] varicella, non-immune(Confirmed) Active Visual hallucinations(Confirmed) Active 1Per [facility] chart in [facility]IS Social History Social History Type Response Smoking Status Former smoker, quit more than 30 days ago entered on: 02/27/20 Sex
--- OUTSIDE RECORDS SUMMARY | 2022-12-02 14:29 | XMS_ITS | Continuity of Care Document ---
Author Name Unknown Organization [facility] ter Address [address] [place] [address]- Care Team Providers Care Commanding Officer Garage Name Role Phone Vahe DAMON, Angie Bates Primary Care Lorie isak [place] [facility] [place] Date(s[place] 08/10/22 - 08/10/[address] [address]- Discharge Disposition: A-D/C Walkout Attending Physician: Not on Staff, Attending MD Admitting Physician: Not on Staff, Admitting MD Referring Physician: Not on Staff, Referring MD Allergies, Adverse Reactions, Alerts No Known Allergies Immunizations Given and Recorded Vaccine Date Status Refusal Reason tetanus/diphtheria/pertussis, acel(Tdap) 10/24/21 Given tetanus/diphtheria/pertussis, acel(Tdap) 08/09/20 Given tetanus/diphtheria/pertussis, acel(Tdap) 10/13/18 Given SARS-CoV-2 mRNA ([id number]) vax 08/19/21 Given SARS-CoV-2 (COVID-19) mRNA BNT-162b2 vac 06/18/21 Given influenza virus vaccine, inactivated 06/18/21 Give n influenza virus vaccine, inactivated 05/24/20 Give n Medications docusate sodium 100 mg oral capsule 100 mg, 1, capsule, By Mouth, 2 times a day, PRN, # 20 capsule, Refills 0, Tot. Refills 0, Maintenance, for constipation, 01/05/22 16:45:00 EDT, Route to Pharmacy Electronically, [facility]/pharmacy #[id number], Partial fill upon patient request if the prescriptio... Start Date: 01/05/22 Status: Ordered ethinyl estradiol-norelgestromin 35 mcg-150 mcg/24 hr transdermal film, extended release 1 patch, Topically, Every week, apply a new patch weekly for 3 weeks, remove for 1 week, then repeat cycle, # 3 each, 11 Refills, Maintenance, 02/24/22 12:48:00 EDT, [facility]/pharmacy #[id number], Partial fill upon patient request if the prescription is for a sc... Start Date: 02/24/22 Status: Ordered ibuprofen 800 mg oral tablet 800 mg, 1, tablet, By Mouth, 3 times a day, PRN, # 30 tablet, Refills 1, Tot. Refills 1, Maintenance, as needed for pain, 12/24/21 14:41:00 EDT, Route to Pharmacy Electronically, [facility]/pharmacy #[id number], Partial fill upon patient request if the prescriptio... Start Date: 12/24/21 Status: Ordered Lidoderm 5% film 1 patch, Topically, Daily, remove patches after 12 hours, # 10 patch, 0 Refills, Maintenance, 08/21/21 11:07:00 EST, [facility]/pharmacy #[id number], Partial fill upon patient request if the prescription is for aschedule II opioid drug., 1 patch Topically Daily,I... Start Date: 08/21/21 Status: Ordered metroNIDAZOLE 0.75% topical gel 1 application, Topically, Daily, insert vaginall with applicator nightly for 5 nights., # 45 Gm, 0 Refills, Maintenance, 11/19/21 16:55:00 EDT, Gel, [facility]/pharmacy #[id number], Partial fill upon patient request if the prescription is for a schedule II opioid... Start Date: 11/19/21 Stop Date: 11/24/21 Status: Ordered MiraLax oral powder for reconstitution = 17 Gm, By Mouth, Daily, dissolve in water before taking, # 255 Gm, 0 Refills, Maintenance, 01/05/22 16:45:00 EDT, REC Powder, [facility]/pharmacy #[id number], Partial fill upon patient request if [...] Active Maternal varicella, non-immune Confirmed Active 1Per [facility] chart in CIS Vital Signs Most recent to oldest [Reference Range]: 1 2 Weight 69.5 kg (08/10/22 12:22 PM) Oxygen Saturation [94-100 %] 100 % (08/10/22 12: PM) 100 % (08/10/22 12:07 PM) Pulse Rate [55-90 bpm] 98 bpm *H* (08/10/22 12:22 PM) 96 bpm *H* (08/10/22 12:07 PM) Blood Pressure [90-138/55-84 mm Hg] 139/ 62mm Hg *H* (08/10/22 12:22 PM) Respiratory Rate [16-30 br/min] 17 br/mi n (08/10/22 12:22 PM) Temperature [96.8-100.4 DegF] 98.7 DegF (2/20/23 12:22 PM) Mode of Delivery (Oxygen) Room air (08/10/22 12:22 PM) Room air (08/10/22 12:07 PM) Blood pressure sites Arm, right (08/10/22 12:22 PM) Temperature Route Oral (08/10/22 12:22 PM) Weight Obtained Via Patient/family state d (08/10/22 12:22 PM) Social History Social History Type Response Smoking Status Never (less than 100 in lifetime) entered on: 05/27/21 Sex Patient Care team information Care Team Personnel Name: Vahe DAMON, Angie Bates Position: [facility] PCO TA Member Role: PCP Address: Address: [address] [place] [address]- Care Team Related Persons Name: ELIN HENDRICKS Address: home [address] [place] [address] Name: ARTURO HENDRICKS Address: home [facility] Name: ABIGAIL HERNANDEZ Address: [place] [address] Name: ZACHARY FRAGA Address: [address] Address: home [address] [address] Name: DAVI FRAGA Address: [address] Address: home [address] [address] Name: RICKIE FRAGA Address: [address] Address: home [address] [address]
--- OUTSIDE RECORDS SUMMARY | 2022-12-02 14:29 | XMS_ITS | Continuity of Care Document ---
Author Name Unknown Organization [facility] Address [address] [place] [phone]- Care Team Providers Care Hay Sorter Name Role Phone Vahe PLATFORM STAPLER, Angie Bates Primary Care Lorie isak [place] [facility] [place] - 01/25/[address] [address]- Attending Physician: Not on Staff, Attending MD Allergies, Adverse Reactions, Alerts No Known Allergies Immunizations Given and Recorded Vaccine Date Status Refusal Reason tetanus/diphtheria/pertussis, acel(Tdap) 10/24/21 Given tetanus/diphtheria/pertussis, acel(Tdap) 08/09/20 Given tetanus/diphtheria/pertussis, acel(Tdap) 10/13/18 Given SARS-CoV-2 mRNA ([id number]) vax 08/19/21 Given SARS-CoV-2 (COVID-19) mRNA BNT-162b2 vac 06/18/21 Given influenza virus vaccine, inactivated 06/18/21 Give n influenza virus vaccine, inactivated 05/24/20 Give n Medications docusate sodium 100 mg oral capsule 100 mg, 1, capsule, By Mouth, 2 times a day, PRN, # 20 capsule, Refills 0, Tot. Refills 0, Maintenance, for constipation, 01/05/22 16:45:00 EDT, Route to Pharmacy Electronically, [facility]/pharmacy #[id number], Partial fill upon patient request if the prescriptio... Start Date: 01/05/22 Status: Ordered ibuprofen 800 mg oral tablet 800 mg, 1, tablet, By Mouth, 3 times a day, PRN, # 30 tablet, Refills 1, Tot. Refills 1, Maintenance, as needed for pain, 12/24/21 14:41:00 EDT, Route to Pharmacy Electronically, [facility]/pharmacy #[id number], Partial fill upon patient request [...] 0 Refills, Maintenance, 11/19/21 16:55:00 EDT, Gel, [facility]/pharmacy #[id number], Partial fill upon patient request if the prescription is for a schedule II opioid... Start Date: 11/19/21 Stop Date: 11/24/21 Status: Ordered MiraLax oral powder for reconstitution = 17 Gm, By Mouth, Daily, dissolve in water before taking, # 255 Gm, 0 Refills, Maintenance, 01/05/22 16:45:00 EDT, REC Powder, [facility]/pharmacy #[id number], Partial fill upon patient request if the prescription is for a schedule II opioid drug., 17 Gm By Mouth... Start Date: 01/05/22 Status: Ordered Robitussin CoughGels 15 mg oral capsule 1 capsule = 15 mg, By Mouth, Every 4 hours, PRN as needed for cough, # 20 capsule, 0 Refills, Maintenance, 11/11/21 14:55:00 EDT, Capsule, [facility]/pharmacy #[id number], Partial fill upon patient request if theprescription is for a schedule II opioid drug., 158... Start Date: 11/11/21 Status: Ordered senna 15 mg oral tablet, chewable 2 tablet = 30 mg, Chew, 2 times a day, PRN for constipation, # 48 tablet, 0 Refills, Maintenance, 01/05/22 16:45:00 EDT, Chew Tablet, [facility]/pharmacy #[id number], Partial fill upon patient request [...] 2012 Active Maternal varicella, non-immune(Confirmed) Active 1Per [facility] chart in [facility]IS Social History Social History Type Response Smoking Status Never (less than 100 in lifetime) entered on: 05/27/21 Sex
--- OUTSIDE RECORDS SUMMARY | 2022-12-02 14:29 | XMS_ITS | Continuity of Care Document ---
Author Name Unknown Organization [facility] Address [address] [place] [address]- Care Team Providers Care Ambulance Driver Name Role Phone Vahe ELECTRICAL TESTS SUPERVISOR, Angie Bates Primary Care Lorie parisi Encounter [facility] [place] Date(s): 02/20/22 - 03/22/[address] [id number] Allergies, Adverse Reactions, Alerts No Known Allergies Immunizations Given and Recorded Vaccine Date Status Refusal Reason tetanus/diphtheria/pertussis, acel(Tdap) 10/24/21 Given tetanus/diphtheria/pertussis, acel(Tdap) 08/09/20 Given tetanus/diphtheria/pertussis, acel(Tdap) 10/13/18 Given SARS-CoV-2 mRNA (qwuabvz-obhe-xbsss) vax 08/19/21 Given SARS-CoV-2 (COVID-19) mRNA BNT-162b2 vac 06/18/21 Given influenza virus vaccine, inactivated 06/18/21 Give n influenza virus vaccine, inactivated 05/24/20 Give n Medications docusate sodium 100 mg oral capsule 100 mg, 1, capsule, By Mouth, 2 times a day, PRN, # 20 capsule, Refills 0, Tot. Refills 0, Maintenance, for constipation, 01/05/22 16:45:00 EDT, Route to Pharmacy Electronically, [facility]/pharmacy #[id number], Partial fill upon patient request if the prescriptio... Start Date: 01/05/22 Status: Ordered ethinyl estradiol-norelgestromin 35 mcg-150 mcg/24 hr transdermal film, extended release 1 patch, Topically, Every week, apply a new patch weekly for 3 weeks, remove for 1 week, then repeat cycle, # 3 each, 11 Refills, Maintenance, 02/24/22 12:48:00 EDT, [facility]/pharmacy #[id number], Partial fill upon patient request if the prescription is for a sc... Start Date: 02/24/22 Status: Ordered ibuprofen 800 mg oral tablet 800 mg, 1, tablet, By Mouth, 3 times a day, PRN, # 30 tablet, Refills 1, Tot. Refills 1, Maintenance, as needed for pain, 12/24/21 14:41:00 EDT, Route to Pharmacy Electronically, [facility]/pharmacy #[id number], Partial fill upon patient request if the prescriptio... Start Date: 12/24/21 Status: Ordered Lidoderm 5% film 1 patch, Topically, Daily, remove patches after 12 hours, # 10 patch, 0 Refills, Maintenance, 08/21/21 11:07:00 EST, [facility]/pharmacy #[id number], Partial fill upon patient request if the prescription is for aschedule II opioid drug., 1 patch Topically Daily,I... Start Date: 08/21/21 Status: Ordered metroNIDAZOLE 0.75% topical gel 1 application, Topically, Daily, insert vaginall with applicator nightly for 5 nights., # 45 Gm, 0 Refills, Maintenance, 11/19/21 16:55:00 EDT, Gel, [facility]/pharmacy #[id number], Partial fill upon patient request if the prescription is for a schedule II opioid... Start Date: 11/19/21 Stop Date: 11/24/21 Status: Ordered MiraLax oral powder for reconstitution = 17 Gm, By Mouth, Daily, dissolve in water before taking, # 255 Gm, 0 Refills, Maintenance, 01/05/22 16:45:00 EDT, REC Powder, [facility]/pharmacy #[id number], Partial fill upon patient request if [...] Active Maternal varicella, non-immune Confirmed Active 1Per [facility] chart in CIS Social History Social History Type Response Smoking Status Never (less than 100 in lifetime) entered on: 05/27/21 Sex Patient Care team information Personnel Name: Vahe DAMON, Angie Bates Address: Address: [address] [place] [address]
--- OUTSIDE RECORDS SUMMARY | 2022-12-02 14:29 | XMS_ITS | Continuity of Care Document ---
Author Name Unknown Organization [facility] ter Address [address] [place] [address]- Care Team Providers Care Lithographic Press Operator Name Role Phone Vahe ANCHOR OPERATOR, Angie Bates Primary Care Lorie isak [place] [facility] [place] - 09/29/[address] [address] Attending Physician: Amy Lai MD Admitting [...] give 325mg per patient preference and re-dose [id number] within 4 hours, if needed. Patient should [...] 2 Refills, Maintenance, 08/30/20 16:21:00 EST, Capsule, [facility]/pharmacy #[id number], Partial fill upon patient request [...] 08/30/20 16:21:00 EST, Route to Pharmacy Electronically, [facility]/pharmacy #[id number], Partial fill upon patient requestif [...] 09/22/20 12:09:00 EDT, Route to Pharmacy Electronically, [facility]/pharmacy #[id number], Partial fill upon patientrequest if the prescription is for a schedule II op... Start Date: 09/22/20 Status: Ordered nitrofurantoin macrocrystals-monohydrate 100 mg oral capsule 1 capsule = 100 mg, By Mouth, 2 times a day, for 7 days, # 14 capsule, 0 Refills, Acute 10/01/20 0:57:00 EDT, 09/24/20 0:57:00 EDT, Capsule, [facility]/pharmacy #[id number], Partial fill upon patient request if the prescription is for a schedule II opioid drug., 1... Start Date: 09/24/20 Stop Date: 10/01/20 Status: Ordered Multivitamins with Folic Acid 1 mg oral tablet 1 tablet, By Mouth, Daily, # 60 tablet, 6 Refills, Maintenance, 08/09/20 11:52:00 EST, Tablet, [facility]/pharmacy #[id number], 1 tablet By Mouth Daily, 157, cm, 08/09/20 10:47:00 EST, Height, 65.45, kg, 08/01/2116:36:00 EST, Dry Weight Start Date: 08/09/20 Status: Ordered Vitamin C 500 mg oral tablet 1 tablet = 500 mg, By Mouth, Daily, # 90 tablet, 0 Refills, Maintenance, 08/30/20 16:22:00 EST, Tablet, [facility]/pharmacy #[id number], Partial fill upon patient request [...] varicella, non-immune(Confirmed) Active Visual hallucinations(Confirmed) Active 1Per [facility] chart in CIS Social History Social History Type Response Smoking Status Former smoker, quit more than 30 days ago entered on: 02/27/20 Sex
--- OUTSIDE RECORDS SUMMARY | 2022-12-02 14:29 | XMS_ITS | Continuity of Care Document ---
Author Name Unknown Organization [facility] Address [address] [place] [address]- Care Team Providers Care Melon Packer Name Role Phone Vahe DAMON, Angie Bates Primary Care Lorie norwooddayana Encounter [facility] Date(s): 08/12/21 - 09/11/21 [facility] [address] [place] [id number] Allergies, Adverse Reactions, Alerts No Known Allergies Immunizations Given and Recorded Vaccine Date Status Refusal Reason SARS-CoV-2 mRNA ([id number]-[id number]) vax 08/19/21 Given SARS-CoV-2 (COVID-19) mRNA BNT-162b2 [...] patch, 0 Refills, Maintenance, 08/21/21 11:07:00 EST, [facility]/pharmacy #[id number], Partial fill upon patient request if the prescription is for aschedule II opioid drug., 1 patch Topically Daily,I... Start Date: 08/21/21 Status: Ordered Multivitamins with Folic Acid 1 mg oral tablet 1 tablet, By Mouth, Daily, # 90 tablet, 3 Refills, Maintenance, 05/27/21 14:44:00 EST, Tablet, [facility]/pharmacy #[id number], Partial fill upon patient request if [...] pyelo(Confirmed) 2012 Active Maternal varicella, non-immune(Confirmed) [facility] Social History Social History Type Response Smoking Status Never (less than 100 in lifetime) entered on: 05/27/21 Sex
--- OUTSIDE RECORDS SUMMARY | 2022-12-02 14:29 | XMS_ITS | Continuity of Care Document ---
Author Name Unknown Organization [facility] Address [address] [place] [address]- Care Team Providers Care Flooring Mechanic Name Role Phone Vahe STREET INSPECTOR, Angie Bates Primary Care Lorie parisi [place] [facility] [place] Date(s): 02/14/21 - 03/16/[address] [address]- Allergies, Adverse Reactions, Alerts Substance Reaction Severity Status NKA Active Immunizations Given and Recorded Vaccine Date Status Refusal Reason tetanus/diphtheria/pertussis, acel(Tdap) 08/09/20 Given tetanus/diphtheria/pertussis, acel(Tdap) 10/13/18 Given influenza virus vaccine, inactivated 05/24/20 Give n Medications acetaminophen 325 mg oral tablet 650 mg, By Mouth, Every 4 hours, PRN, (1-3), may give 325mg per patient preference and re-dose [id number] within 4 hours, if needed. Patient should [...] 2 Refills, Maintenance, 08/30/20 16:21:00 EST, Capsule, [facility]/pharmacy #[id number], Partial fill upon patient [...] 08/30/20 16:21:00 EST, Route to Pharmacy Electronically, [facility]/pharmacy #[id number], Partial fill upon patient [...] 09/22/20 12:09:00 EDT, Route to Pharmacy Electronically, [facility]/pharmacy #[id number], Partial fill upon patientrequest if [...] varicella, non-immune(Confirmed) Active Visual hallucinations(Confirmed) Active 1Per [facility] chart in CIS Social History Social History Type Response Smoking Status Former smoker, quit more than 30 days ago entered on: 02/27/20 Sex
--- OUTSIDE RECORDS SUMMARY | 2022-12-02 14:29 | XMS_ITS | Continuity of Care Document ---
Author Name Unknown Organization [facility] Address [address] [place] [address]- Care Team Providers Care Patient Services Specialist Name Role Phone Vahe RECREATION PROFESSOR, Angie Bates Primary Care Angusy isak [place] [facility] [place] - 01/22/[address] [address]- Attending Physician: Not on Staff, Attending MD Allergies, Adverse Reactions, Alerts No Known Allergies Immunizations Given and Recorded Vaccine Date Status Refusal Reason tetanus/diphtheria/pertussis, acel(Tdap) 10/24/21 Given tetanus/diphtheria/pertussis, acel(Tdap) 08/09/20 Given tetanus/diphtheria/pertussis, acel(Tdap) 10/13/18 Given SARS-CoV-2 mRNA ([id number]) vax 08/19/21 Given SARS-CoV-2 (COVID-19) mRNA BNT-162b2 vac 06/18/21 Given influenza virus vaccine, inactivated 06/18/21 Give n influenza virus vaccine, inactivated 05/24/20 Give n Medications docusate sodium 100 mg oral capsule 100 mg, 1, capsule, By Mouth, 2 times a day, PRN, # 20 capsule, Refills 0, Tot. Refills 0, Maintenance, for constipation, 01/05/22 16:45:00 EDT, Route to Pharmacy Electronically, [facility]/pharmacy #[id number], Partial fill upon patient request if the prescriptio... Start Date: 01/05/22 Status: Ordered ibuprofen 800 mg oral tablet 800 mg, 1, tablet, By Mouth, 3 times a day, PRN, # 30 tablet, Refills 1, Tot. Refills 1, Maintenance, as needed for pain, 12/24/21 14:41:00 EDT, Route to Pharmacy Electronically, [facility]/pharmacy #[id number], Partial fill upon patient request [...] 0 Refills, Maintenance, 11/19/21 16:55:00 EDT, Gel, [facility]/pharmacy #1026, Partial fill upon patient request if the prescription is for a schedule II opioid... Start Date: 11/19/21 Stop Date: 11/24/21 Status: Ordered MiraLax oral powder for reconstitution = 17 Gm, By Mouth, Daily, dissolve in water before taking, # 255 Gm, 0 Refills, Maintenance, 01/05/22 16:45:00 EDT, REC Powder, [facility]/pharmacy #[id number], Partial fill upon patient request if the prescription is for a schedule II opioid drug., 17 Gm By Mouth... Start Date: 01/05/22 Status: Ordered Robitussin CoughGels 15 mg oral capsule 1 capsule = 15 mg, By Mouth, Every 4 hours, PRN as needed for cough, # 20 capsule, 0 Refills, Maintenance, 11/11/21 14:55:00 EDT, Capsule, [facility]/pharmacy #1026, Partial fill upon patient request if theprescription is for a schedule II opioid drug., 158... Start Date: 11/11/21 Status: Ordered senna 15 mg oral tablet, chewable 2 tablet = 30 mg, Chew, 2 times a day, PRN for constipation, # 48 tablet, 0 Refills, Maintenance, 01/05/22 16:45:00 EDT, Chew Tablet, [facility]/pharmacy #[id number], Partial fill upon patient request [...] 2013 Active Maternal varicella, non-immune(Confirmed) Active 1Per [facility] chart in CIS Social History Social History Type Response Smoking Status Never (less than 100 in lifetime) entered on: 05/27/21 Sex
--- OUTSIDE RECORDS SUMMARY | 2022-12-02 14:29 | XMS_ITS | Continuity of Care Document ---
Author Name Unknown Organization [facility] Address [address] [place] [address]- Care Team Providers Care Annealer Helper Name Role Phone Vahe IRONER, Angie Bates Primary Care Lorie isak Encounter [facility] Date(s): 11/10/21 - 02/08/[address] [address]- Attending Physician: Not on Staff, Attending MD Allergies, Adverse Reactions, Alerts No Known Allergies Immunizations Given and Recorded Vaccine Date Status Refusal Reason tetanus/diphtheria/pertussis, acel(Tdap) 10/24/21 Given tetanus/diphtheria/pertussis, acel(Tdap) 08/09/20 Given tetanus/diphtheria/pertussis, acel(Tdap) 10/13/18 Given SARS-CoV-2 mRNA (wixrhhc-ixkw-uzhsx) vax 08/19/21 Given SARS-CoV-2 (COVID-19) mRNA BNT-162b2 vac 06/18/21 Given influenza virus vaccine, inactivated 06/18/21 Give n influenza virus vaccine, inactivated 05/24/20 Give n Medications docusate sodium 100 mg oral capsule 100 mg, 1, capsule, By Mouth, 2 times a day, PRN, # 20 capsule, Refills 0, Tot. Refills 0, Maintenance, for constipation, 01/05/22 16:45:00 EDT, Route to Pharmacy Electronically, [facility]/pharmacy #[id number], Partial fill upon patient request if the prescriptio... Start Date: 01/05/22 Status: Ordered ibuprofen 800 mg oral tablet 800 mg, 1, tablet, By Mouth, 3 times a day, PRN, # 30 tablet, Refills 1, Tot. Refills 1, Maintenance, as needed for pain, 12/24/21 14:41:00 EDT, Route to Pharmacy Electronically, [facility]/pharmacy #[id number], Partial fill upon patient [...] 0 Refills, Maintenance, 11/19/21 16:55:00 EDT, Gel, [facility]/pharmacy #[id number], Partial fill upon patient request if the prescription is for a schedule II opioid... Start Date: 11/19/21 Stop Date: 11/24/21 Status: Ordered MiraLax oral powder for reconstitution = 17 Gm, By Mouth, Daily, dissolve in water before taking, # 255 Gm, 0 Refills, Maintenance, 01/05/22 16:45:00 EDT, REC Powder, [facility]/pharmacy #[id number], Partial fill upon patient request if the prescription is for a schedule II opioid drug., 17 Gm By Mouth... Start Date: 01/05/22 Status: Ordered Robitussin CoughGels 15 mg oral capsule 1 capsule = 15 mg, By Mouth, Every 4 hours, PRN as needed for cough, # 20 capsule, 0 Refills, Maintenance, 11/11/21 14:55:00 EDT, Capsule, [facility]/pharmacy #1026, Partial fill upon patient request if theprescription is for a schedule II opioid drug., 158... Start Date: 11/11/21 Status: Ordered senna 15 mg oral tablet, chewable 2 tablet = 30 mg, Chew, 2 times a day, PRN for constipation, # 48 tablet, 0 Refills, Maintenance, 01/05/22 16:45:00 EDT, Chew Tablet, [facility]/pharmacy #[id number], Partial fill upon patient [...] 2012 Active Maternal varicella, non-immune(Confirmed) Active 1Per [facility] chart in [facility]IS Social History Social History Type Response Smoking Status Never (less than 100 in lifetime) entered on: 05/27/21 Sex
--- OUTSIDE RECORDS SUMMARY | 2022-12-02 14:29 | XMS_ITS | Continuity of Care Document ---
Author Name Unknown Organization [facility] ter Address [address] [place] [address]- Care Team Providers Care Mall Manager Name Role Phone Vahe DAMON, Angie Bates Primary Care Lorie isak En[place] [facility] [place] Date(s): 12/03/21 - 01/08/[address] [address]- Attending Physician: Robert Koehler DO Admitting Physician: Robert Koehler DO Referring Physician: Loren Arenas DO Allergies, Adverse Reactions, Alerts No Known Allergies Immunizations Given and Recorded Vaccine Date Status Refusal Reason tetanus/diphtheria/pertussis, acel(Tdap) 10/24/21 Given tetanus/diphtheria/pertussis, acel(Tdap) 08/09/20 Given tetanus/diphtheria/pertussis, acel(Tdap) 10/13/18 Given SARS-CoV-2 mRNA ([id number]) vax 08/19/21 Given SARS-CoV-2 (COVID-19) mRNA BNT-162b2 [...] 01/05/22 16:45:00 EDT, Route to Pharmacy Electronically, [facility]/pharmacy #[id number], Partial fill upon patient request if the prescriptio... Start Date: 01/05/22 Status: Ordered ibuprofen 800 mg oral tablet 800 mg, 1, tablet, By Mouth, 3 times a day, PRN, # 30 tablet, Refills 1, Tot. Refills 1, Maintenance, as needed for pain, 12/24/21 14:41:00 EDT, [facility] Pharmacy Electronically, [facility] [...] 0 Refills, Maintenance, 11/19/21 16:55:00 EDT, Gel, [facility]/pharmacy #[id number], Partial fill upon patient request if the prescription is for a schedule II opioid... Start Date: 11/19/21 Stop Date: 11/24/21 Status: Ordered MiraLax oral powder for reconstitution = 17 Gm, By Mouth, Daily, dissolve in water before taking, # 255 Gm, 0 Refills, Maintenance, 01/05/22 16:45:00 EDT, REC Powder, [facility]/pharmacy #[id number], Partial fill upon [...] pyelo(Confirmed) 2012 Active Maternal varicella, non-immune(Confirmed) [facility] Social History Social History Type Response Smoking Status Never (less than 100 in lifetime) entered on: 05/27/21 Sex
--- OUTSIDE RECORDS SUMMARY | 2022-12-02 14:29 | XMS_ITS | Continuity of Care Document ---
Author Name Unknown Organization [facility] Address [address] [place] [address]- Care Team Providers Care Quality Control Systems Manager Name Role Phone Vahe BOAT LOADER, Angie Bates Primary Care Lorie isak Encounter [facility] Date(s): 10/23/21 - 11/23/[address] [address]- Attending Physician: Not on Staff, Attending MD Allergies, Adverse Reactions, Alerts No Known Allergies Immunizations Given and Recorded Vaccine Date Status Refusal Reason tetanus/diphtheria/pertussis, acel(Tdap) 10/24/21 Given tetanus/diphtheria/pertussis, acel(Tdap) 08/09/20 Given tetanus/diphtheria/pertussis, acel(Tdap) 10/13/18 Given SARS-CoV-2 mRNA ([id number]-[id number]-nqmwb) vax 08/19/21 Given SARS-CoV-2 (COVID-19) mRNA BNT-162b2 [...] Active 1Problem added by Discern Expert 2Per [facility] chart in CIS Social History Social History Type Response Smoking Status Never (less than 100 in lifetime) entered on: 05/27/21 Sex
--- OUTSIDE RECORDS SUMMARY | 2022-12-02 14:29 | XMS_ITS | Continuity of Care Document ---
Author Name Unknown Organization [facility] Address [address] [place] [address]- Care Team Providers Care Electronic Test Technician Name Role Phone Isreal Patrick NP Primary Care Physician Encounter [facility] [place] Date(s): 12/29/19 - 01/31/[address] [address]- [facility] Attending Physician: Not on Staff, Attending MD [...] Active Hx of sepsis secondary to pyelonephritis 2013(Confirmed) Active Social History Social History Type Response Tobacco Use: 4 or less cigar ettes(less than 1/4 pack)/day in last 30 days. Sex
--- OUTSIDE RECORDS SUMMARY | 2022-12-02 14:29 | XMS_ITS | Continuity of Care Document ---
Author Name Unknown Organization [facility] Address [address] [place] [address]- Care Team Providers Care Umbrella Tipper Hand Name Role Phone Vahe PUBLIC TRANSIT BUS DRIVER, Angie Bates Primary Care Lorie parisi Encounter [facility] Date(s): 08/07/20 - 09/06/[address] [address]- Allergies, Adverse Reactions, Alerts Substance Reaction Severity [...] varicella, non-immune(Confirmed) Active Visual hallucinations(Confirmed) Active 1Per [facility] chart in CIS Social History Social History Type Response Smoking Status Former smoker, quit more than 30 days ago entered on: 02/27/20 Sex
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
--- OUTSIDE RECORDS SUMMARY | 2022-12-02 14:29 | XMS_ITS | Continuity of Care Document ---
Author Name Unknown Organization [facility] Address [address] [place] [address]- Care Team Providers Care Heel Painter Name Role Phone Vahe INFRASTRUCTURE ANALYST, Angie Bates Primary Care Lorie isak Encounter [facility] Date(s): 11/11/21 - 12/11/[address] [address]- Allergies, Adverse Reactions, Alerts No Known Allergies Immunizations Given and Recorded Vaccine Date Status Refusal Reason tetanus/diphtheria/pertussis, acel(Tdap) 10/24/21 Given tetanus/diphtheria/pertussis, acel(Tdap) 08/09/20 Given tetanus/diphtheria/pertussis, acel(Tdap) 10/13/18 Given SARS-CoV-2 mRNA ([id number]-msts-tmuwq) vax 08/19/21 Given SARS-CoV-2 (COVID-19) mRNA BNT-162b2 [...] pyelo(Confirmed) 2013 Active Maternal varicella, non-immune(Confirmed) Active 1Problem added by Discern Expert 2Per [facility] chart in CIS Social History Social History Type Response Smoking Status Never (less than 100 in lifetime) entered on: 05/27/21 Sex
--- OUTSIDE RECORDS SUMMARY | 2022-12-02 14:29 | XMS_ITS | Continuity of Care Document ---
Author Name Unknown Organization [facility] Address [address] [place] [address]- Care Team Providers Care Due Diligence Coordinator Name Role Phone Vahe COPRA PROCESSOR, Angie Bates Primary Care Lorie isak Encounter [facility] [place] Date(s): 01/08/22 - 02/07/[address] [address]- Allergies, Adverse Reactions, Alerts No Known Allergies Immunizations Given and Recorded Vaccine Date Status Refusal Reason tetanus/diphtheria/pertussis, acel(Tdap) 10/24/21 Given tetanus/diphtheria/pertussis, acel(Tdap) 08/09/20 Given tetanus/diphtheria/pertussis, acel(Tdap) 10/13/18 Given SARS-CoV-2 mRNA (qqyabfv-caos-eatfm) vax 08/19/21 Given SARS-CoV-2 (COVID-19) mRNA BNT-162b2 vac 06/18/21 Given influenza virus vaccine, inactivated 06/18/21 Give n influenza virus vaccine, inactivated 05/24/20 Give n Medications docusate sodium 100 mg oral capsule 100 mg, 1, capsule, By Mouth, 2 times a day, PRN, # 20 capsule, Refills 0, Tot. Refills 0, Maintenance, for constipation, 01/05/22 16:45:00 EDT, Route to Pharmacy Electronically, [facility]/pharmacy #[id number], Partial fill upon patient request if the prescriptio... Start Date: 01/05/22 Status: Ordered ibuprofen 800 mg oral tablet 800 mg, 1, tablet, By Mouth, 3 times a day, PRN, # 30 tablet, Refills 1, Tot. Refills 1, Maintenance, as needed for pain, 12/24/21 14:41:00 EDT, Route to Pharmacy Electronically, [facility]/pharmacy #[id number], Partial fill upon patient request if the prescriptio... Start Date: 12/24/21 Status: Ordered Lidoderm 5% film 1 patch, Topically, Daily, remove patches after 12 hours, # 10 patch, 0 Refills, Maintenance, 08/21/21 11:07:00 EST, [facility]/pharmacy #[id number], Partial fill upon patient request if the prescription is for aschedule II opioid drug., 1 patch Topically Daily,I... Start Date: 08/21/21 Status: Ordered metroNIDAZOLE 0.75% topical gel 1 application, Topically, Daily, insert vaginall with applicator nightly for 5 nights., # 45 Gm, 0 Refills, Maintenance, 11/19/21 16:55:00 EDT, Gel, [facility]/pharmacy #1026, Partial fill upon patient request if the prescription is for a schedule II opioid... Start Date: 11/19/21 Stop Date: 11/24/21 Status: Ordered MiraLax oral powder for reconstitution = 17 Gm, By Mouth, Daily, dissolve in water before taking, # 255 Gm, 0 Refills, Maintenance, 01/05/22 16:45:00 EDT, REC Powder, [facility]/pharmacy #[id number], Partial fill upon patient request if the prescription is for a schedule II opioid drug., 17 Gm By Mouth... Start Date: 01/05/22 Status: Ordered Robitussin CoughGels 15 mg oral capsule 1 capsule = 15 mg, By Mouth, Every 4 hours, PRN as needed for cough, # 20 capsule, 0 Refills, Maintenance, 11/11/21 14:55:00 EDT, Capsule, [facility]/pharmacy #1026, Partial fill upon patient request if theprescription is for a schedule II opioid drug., 158... Start Date: 11/11/21 Status: Ordered senna 15 mg oral tablet, chewable 2 tablet = 30 mg, Chew, 2 times a day, PRN for constipation, # 48 tablet, 0 Refills, Maintenance, 01/05/22 16:45:00 EDT, Chew Tablet, [facility]/pharmacy #[id number], Partial fill upon patient request [...] 2012 Active Maternal varicella, non-immune(Confirmed) Active 1Per [facility] chart in CIS Social History Social History Type Response Smoking Status Never (less than 100 in lifetime) entered on: 05/27/21 Sex
--- OUTSIDE RECORDS SUMMARY | 2022-12-02 14:30 | XMS_ITS | Continuity of Care Document ---
Author Name Unknown Organization [facility] Address [address] [place] [address]- Care Team Providers Care Postdoctoral Fellow Name Role Phone Isreal Patrick NP S Primary Care Physician Encounter [facility] [place] Date(s): 07/20/19 - 08/20/19 [facility] [address] [address]- [facility] Attending Physician: Not on Staff, Attending MD [...]
--- OUTSIDE RECORDS SUMMARY | 2022-12-02 14:30 | XMS_ITS | Continuity of Care Document ---
Author Name Unknown Organization [facility] Address [address] [place] [address]- Care Team Providers Care Gold Nib Grinder Name Role Phone Isreal Patrick NP Primary Care Physician Encounter [facility] [place] Date(s): 02/13/20 - 03/14/[address] [address]- [facility] Allergies, Adverse Reactions, Alerts Substance [...] sepsis secondary to pyelo(Confirmed) 2012 Active 1Per [facility] chart in CIS 2Per [facility] chart in CIS 3Pt requesting [facility] services - will send communicate for telehealth visit with [facility]. Social History Social History Type Response Smoking Status Former smoker, quit more than 30 days ago entered on: 02/27/20 Sex
--- OUTSIDE RECORDS SUMMARY | 2022-12-02 14:30 | XMS_ITS | Continuity of Care Document ---
Author Name Unknown Organization [facility] Address [address] [place] [address]- Care Team Providers Care Horticulture Superintendent Name Role Phone Isreal Patrick NP Primary Care Physician Encounter [facility] Date(s): 07/03/20 - 08/02/[address] [address]- Allergies, Adverse Reactions, Alerts Substance Reaction Severity Status NKA Active Immunizations Given and Recorded Vaccine Date Status Refusal Reason influenza virus vaccine, inactivated 05/24/20 Give n tetanus/diphtheria/pertussis, acel(Tdap) 10/13/18 Given Medications aspirin 81 mg oral delayed release tablet 2 tablet = 162 mg, By Mouth, Daily, # 90 tablet, 2 Refills, Maintenance, 03/29/20 11:27:00 EDT, CR Tablet, [facility]/pharmacy #[id number], 158, cm, 03/29/20 10:12:00 EDT, Height, [...] 2 Refills, Maintenance, 03/29/20 11:31:00 EDT, Tablet, [facility]/pharmacy #1026, 1 tablet By Mouth Daily, 158, cm, 03/29/20 10:12:00 EDT, Height, 60, kg, 04/24/19 13:31:00 EST, Dry Weight Start Date: 03/29/20 Status: Ordered Zoloft 25 mg oral tablet 1 tablet = 25 mg, By Mouth, Daily, Take 25mg daily for 1 week, then increased dose to 50 daily, # 30 tablet, 3 Refills, Maintenance, 05/24/20 9:35:00 EST, Tablet, [facility]/pharmacy #[id number], Partial fill upon patient [...] varicella, non-immune(Confirmed) Active Visual hallucinations(Confirmed) Active 1Per [facility] chart in CIS Social History Social History Type Response Smoking Status Former smoker, quit more than 30 days ago entered on: 02/27/20 Sex
--- OUTSIDE RECORDS SUMMARY | 2022-12-02 14:30 | XMS_ITS | Continuity of Care Document ---
Author Name Unknown Organization [facility] Address [address] [place] [address]- Care Team Providers Care Fleet Coordinator Name Role Phone Vahe LINE TENDER FLAKEBOARD, Angie Bates Primary Care Lorie isak [place] [facility] [place] Date(s): 09/17/22 - 10/21/[address] [address]- Attending Physician: Not on Staff, Attending MD Allergies, Adverse Reactions, Alerts No Known Allergies Immunizations Given and Recorded Vaccine Date Status Refusal Reason tetanus/diphtheria/pertussis, acel(Tdap) 10/24/21 Given tetanus/diphtheria/pertussis, acel(Tdap) 08/09/20 Given tetanus/diphtheria/pertussis, acel(Tdap) 10/13/18 Given SARS-CoV-2 mRNA (gjtvxjp-[id number]) vax 08/19/21 Given SARS-CoV-2 (COVID-19) mRNA BNT-162b2 vac 06/18/21 Given influenza virus vaccine, inactivated 06/18/21 Give n influenza virus vaccine, inactivated 05/24/20 Give n Medications docusate sodium 100 mg oral capsule 100 mg, 1, capsule, By Mouth, 2 times a day, PRN, # 20 capsule, Refills 0, Tot. Refills 0, Maintenance, for constipation, 01/05/22 16:45:00 EDT, Route to Pharmacy Electronically, [facility]/pharmacy #[id number], Partial fill upon patient request if the prescriptio... Start Date: 01/05/22 Status: Ordered ethinyl estradiol-norelgestromin 35 mcg-150 mcg/24 hr transdermal film, extended release 1 patch, Topically, Every week, apply a new patch weekly for 3 weeks, remove for 1 week, then repeat cycle, # 3 each, 11 Refills, Maintenance, 02/24/22 12:48:00 EDT, [facility]/pharmacy #[id number], Partial fill upon patient request if the prescription is for a sc... Start Date: 02/24/22 Status: Ordered ibuprofen 800 mg oral tablet 800 mg, 1, tablet, By Mouth, 3 times a day, PRN, # 30 tablet, Refills 1, Tot. Refills 1, Maintenance, as needed for pain, 12/24/21 14:41:00 EDT, Route to Pharmacy Electronically, [facility]/pharmacy #[id number], Partial fill upon patient request if the prescriptio... Start Date: 12/24/21 Status: Ordered Lidoderm 5% film 1 patch, Topically, Daily, remove patches after 12 hours, # 10 patch, 0 Refills, Maintenance, 08/21/21 11:07:00 EST, [facility]/pharmacy #1026, Partial fill upon patient request if the prescription is for aschedule II opioid drug., 1 patch Topically Daily,I... Start Date: 08/21/21 Status: Ordered metroNIDAZOLE 0.75% topical gel 1 application, Topically, Daily, insert vaginall with applicator nightly for 5 nights., # 45 Gm, 0 Refills, Maintenance, 11/19/21 16:55:00 EDT, Gel, [facility]/pharmacy #1026, Partial fill upon patient request if the prescription is for a schedule II opioid... Start Date: 11/19/21 Stop Date: 11/24/21 Status: Ordered MiraLax oral powder for reconstitution = 17 Gm, By Mouth, Daily, dissolve in water before taking, # 255 Gm, 0 Refills, Maintenance, 01/05/22 16:45:00 EDT, REC Powder, [facility]/pharmacy #[id number], Partial fill upon patient request [...] 09/24/22 12:10:00 EDT, Route to Pharmacy Electronically, [facility]/pharmacy #[id number], Partial fill upon patient request [...] Active Maternal varicella, non-immune Confirmed Active er [facility] chart in CIS Social History Social History Type Response Smoking Status Never (less than 100 in lifetime) entered on: 05/27/21 Sex Patient Care team information Care Team Personnel Name: Vahe DAMON, Angie Bates Position: S PCO TA Member Role: PCP Address: Address: [address] [place] [address]- Care Team Related Persons Name: ELIN HENDRICKS Address: home [address] [place] [address] Name: ARTURO HENDRICKS Address: home [facility] Name: ABIGAIL HERNANDEZ Address: [place] [address] Name: ZACHARY FRAGA Address: [address] Address: home [address] Name: DAVI FRAGA Address: [address] Address: home [address] [place] [address] [place] Name: RICKIE FRAGA Address: [address] Address: home [address] [place] [address]
--- OUTSIDE RECORDS SUMMARY | 2022-12-02 14:30 | XMS_ITS | Continuity of Care Document ---
Author Name Unknown Organization [facility] Address [address] [place] [address]- Care Team Providers Care Life Tester [employer] Name Role Phone Isreal Patrick NP Primary Care Physician Encounter [facility] [place] Date(s): 02/27/20 - 03/28/20 [facility] [address] [address]- [facility] Allergies, Adverse Reactions, Alerts Substance Reaction Severity [...] sepsis secondary to pyelo(Confirmed) 2012 Active 1Per [facility] chart in CIS 2Per [facility] chart in CIS 3Pt requesting [facility] services - will send communicate for telehealth visit with [facility]. Social History Social History Type Response Smoking Status Former smoker, quit more than 30 days ago entered on: 02/27/20 Sex
--- OUTSIDE RECORDS SUMMARY | 2022-12-02 14:30 | XMS_ITS | Continuity of Care Document ---
Author Name Unknown Organization [facility] Address [address] [place] [address]- Care Team Providers Care Farm Equipment Engine Mechanic Name Role Phone Vahe DAMON, Angie Bates Primary Care Lorie parisi Encounter [facility] [place] Date(s): 02/17/21 - 04/10/[address] [address]- Attending Physician: Not on Staff, Attending MD [...] give 325mg per patient preference and re-dose [id number] within 4 hours, if needed. Patient should [...] 04/24/19 13:31:00 EST, Dry Weight Start Date: 10/9/20 Status: Ordered docusate sodium 100 mg oral [...] 6 Refills, Maintenance, 08/09/20 11:52:00 EST, Tablet, [facility]/pharmacy #[id number], 1 tablet By Mouth Daily, 157, cm, 08/09/20 10:47:00 EST, Height, 65.45, kg, 08/01/2116:36:00 EST, Dry Weight Start Date: 08/09/20 Status: Ordered Vitamin C 500 mg oral tablet 1 tablet = 500 mg, By Mouth, Daily, # 90 tablet, 0 Refills, Maintenance, 08/30/20 16:22:00 EST, Tablet, [facility]/pharmacy #1026, Partial fill upon patient request [...] varicella, non-immune(Confirmed) Active Visual hallucinations(Confirmed) Active 1Per [facility] chart in CIS Social History Social History Type Response Smoking Status Former smoker, quit more than 30 days ago entered on: 02/27/20 Sex
--- OUTSIDE RECORDS SUMMARY | 2022-12-02 14:30 | XMS_ITS | Continuity of Care Document ---
Author Name Unknown Organization [facility] Address [address] [place] [address]- Care Team Providers Care Surveillance Agent Name Role Phone Vahe PURLER, Angie Bates Primary Care Angusy isak Encounter [facility] [place] Date(s): 01/13/21 - 02/12/[address] [address]- Attending Physician: Hilda Decker Admitting Physician: AdmHilda [...] give 325mg per patient preference and re-dose [id number] within 4 hours, if needed. Patient should [...] 6 Refills, Maintenance, 08/09/20 11:52:00 EST, Tablet, [facility]/pharmacy #1026, 1 tablet By Mouth Daily, 157, cm, 08/09/20 10:47:00 EST, Height, 65.45, kg, 08/01/2116:36:00 EST, Dry Weight Start Date: 08/09/20 Status: Ordered Vitamin C 500 mg oral tablet 1 tablet = 500 mg, By Mouth, Daily, # 90 tablet, 0 Refills, Maintenance, 08/30/20 16:22:00 EST, Tablet, [facility]/pharmacy #1026, Partial fill [...] varicella, non-immune(Confirmed) Active Visual hallucinations(Confirmed) Active 1Per [facility] chart in CIS Vital Signs Most recent to oldest [Reference Range]: 1 Height 160 cm (08/18/18 4:30 PM) Social History Social History Type Response Smoking Status Former smoker, quit more than 30 days ago entered on: 02/27/20 Sex
--- OUTSIDE RECORDS SUMMARY | 2022-12-02 14:30 | XMS_ITS | Continuity of Care Document ---
Author Name Unknown Organization [facility] Address [address] [place] [address]- Care Team Providers Care Environmental Protection Economist Name Role Phone Vahe WEATHERIZATION SPECIALIST, Angie Bates Primary Care Lorie isak En[place] [facility] [place] Date(s): 10/14/21 - 01/15/[address] [address]- Attending Physician: Not on Staff, Attending MD Allergies, Adverse Reactions, Alerts No Known Allergies Immunizations Given and Recorded Vaccine Date Status Refusal Reason tetanus/diphtheria/pertussis, acel(Tdap) 10/24/21 Given tetanus/diphtheria/pertussis, acel(Tdap) 08/09/20 Given tetanus/diphtheria/pertussis, acel(Tdap) 10/13/18 Given SARS-CoV-2 mRNA (ribikas-zecj-mlceb) vax 08/19/21 Given SARS-CoV-2 (COVID-19) mRNA BNT-162b2 [...] 0 Refills, Maintenance, 11/11/21 14:55:00 EDT, Capsule, [facility]/pharmacy #[id number], Partial fill upon patient request if theprescription is for a schedule II opioid drug., 158... Start Date: 11/11/21 Status: Ordered senna 15 mg oral tablet, chewable 2 tablet = 30 mg, Chew, 2 times a day, PRN for constipation, # 48 tablet, 0 Refills, Maintenance, 01/05/22 16:45:00 EDT, Chew Tablet, [facility]/pharmacy #1026, [...] 2013 Active Maternal varicella, non-immune(Confirmed) Active 1Per [facility] chart in CIS Social History Social History Type Response Smoking Status Never (less than 100 in lifetime) entered on: 05/27/21 Sex
--- OUTSIDE RECORDS SUMMARY | 2022-12-02 14:30 | XMS_ITS | Continuity of Care Document ---
Author Name Unknown Organization [facility] Address [address] [place] [address]- Care Team Providers Care Safety Clothing And Equipment Developer Name Role Phone Vahe DAMON, Angie Bates Primary Care Lorie parisi [place] [facility] [place] Date(s): 03/03/21 - 04/12/[address] [address]- Attending Physician: Not on Staff, Attending MD [...] give 325mg per patient preference and re-dose [id number] within 4 hours, if needed. Patient should [...] 6 Refills, Maintenance, 08/09/20 11:52:00 EST, Tablet, [facility]/pharmacy #1026, 1 tablet By Mouth Daily, 157, cm, 08/09/20 10:47:00 EST, Height, 65.45, kg, 08/01/2116:36:00 EST, Dry Weight Start Date: 08/09/20 Status: Ordered Vitamin C 500 mg oral tablet 1 tablet = 500 mg, By Mouth, Daily, # 90 tablet, 0 Refills, Maintenance, 08/30/20 16:22:00 EST, Tablet, [facility]/pharmacy #1026, Partial fill upon patient [...] varicella, non-immune(Confirmed) Active Visual hallucinations(Confirmed) Active 1Per [facility] chart in CIS Social History Social History Type Response Smoking Status Former smoker, quit more than 30 days ago entered on: 02/27/20 Sex
--- OUTSIDE RECORDS SUMMARY | 2022-12-02 14:30 | XMS_ITS | Continuity of Care Document ---
Author Name Unknown Organization [facility] Address [address] [place] [address]- Care Team Providers Care Pre Sales Network Engineer Name Role Phone Vahe SECURITY SITE SUPERVISOR, Angie Bates Primary Care Angusy isak [place] [facility] [place] - 12/25/[address] [address]- Attending Physician: Not on Staff, Attending MD Allergies, Adverse Reactions, Alerts No Known Allergies Immunizations Given and Recorded Vaccine Date Status Refusal Reason tetanus/diphtheria/pertussis, acel(Tdap) 10/24/21 Given tetanus/diphtheria/pertussis, acel(Tdap) 08/09/20 Given tetanus/diphtheria/pertussis, acel(Tdap) 10/13/18 Given SARS-CoV-2 mRNA ([id number]) vax 08/19/21 Given SARS-CoV-2 (COVID-19) mRNA BNT-162b2 vac 06/18/21 Given influenza virus vaccine, inactivated 06/18/21 Give n influenza virus vaccine, inactivated 05/24/20 Give n Medications Home Blood Pressure Monitor See Instructions, # 1 each, Maintenance, Please monitor blood pressure as directed, 09/13/20 11:03:00 EDT, Supply Start Date: 09/13/20 Status: Ordered ibuprofen 800 mg oral tablet 800 mg, 1, tablet, By Mouth, 3 times a day, PRN, # 30 tablet, Refills 1, Tot. Refills 1, Maintenance, as needed for pain, 12/24/21 14:41:00 EDT, Route to Pharmacy Electronically, [facility]/pharmacy #[id number], Partial fill upon patient request if the prescriptio... Start Date: 12/24/21 Status: Ordered iron polysaccharide (as elemental iron) [...] Topically Daily,I... Start Date: 08/21/21 Status: Ordered Macrobid macrocrystals-monohydrate 100 mg oral capsule 1 capsule = 100 mg, By Mouth, 2 times a day, for 7 days, # 14 capsule, 0 Refills, Acute 12/31/21 14:40:00 EDT, 12/24/21 14:40:00 EDT, Capsule, [facility]acy [id number], Partial fill upon patient request ifthe prescription is for a schedule II opioid drug.,... Start Date: 12/24/21 Stop Date: 12/31/21 Status: Ordered metroNIDAZOLE 0.75% topical gel 1 [...] drug., 158... Start Date: 11/11/21 Status: Ordered Tylenol 325 mg oral capsule [...] 2012 Active Maternal varicella, non-immune(Confirmed) Active 1Per [facility] chart in [facility] Social History Social History Type Response Smoking Status Never (less than 100 in lifetime) entered on: 05/27/21 Sex
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
--- OUTSIDE RECORDS SUMMARY | 2022-12-02 14:30 | XMS_ITS | Continuity of Care Document ---
Author Name Unknown Organization [facility] Address [address] [place] [address]- Care Team Providers Care Portable Pinch Riveter Name Role Phone Vahe CAP SEWER, Angie Bates Primary Care Lorie isak [place] [facility] [place] - 11/22/[address] [address]- Attending Physician: Not on Staff, Attending MD Allergies, Adverse Reactions, Alerts No Known Allergies Immunizations Given and Recorded Vaccine Date Status Refusal Reason tetanus/diphtheria/pertussis, acel(Tdap) 10/24/21 Given tetanus/diphtheria/pertussis, acel(Tdap) 08/09/20 Given tetanus/diphtheria/pertussis, acel(Tdap) 10/13/18 Given SARS-CoV-2 mRNA ([id number]) vax 08/19/21 Given SARS-CoV-2 (COVID-19) mRNA BNT-162b2 [...] Active 1Problem added by Discern Expert 2Per [facility] chart in CIS Social History Social History Type Response Smoking Status Never (less than 100 in lifetime) entered on: 05/27/21 Sex
--- OUTSIDE RECORDS SUMMARY | 2022-12-02 14:30 | XMS_ITS | Continuity of Care Document ---
Author Name Unknown Organization [facility] ter Address [address] [place] [address]- Care Team Providers Care Refrigeration Installer Name Role Phone Vahe DAMON, Angie Bates Primary Care Angusalfie parisi [place] [facility] [place] Date(s): 10/29/21 - 10/29/[address] [address] Discharge Disposition: A-D/C Home Attending Physician: Robert Koehler DO Admitting Physician: Robetr Koehler DO Referring Physician: Loren Arenas DO Allergies, Adverse Reactions, Alerts No Known Allergies Immunizations Given and Recorded Vaccine Date Status Refusal Reason tetanus/diphtheria/pertussis, acel(Tdap) 10/24/21 Given tetanus/diphtheria/pertussis, acel(Tdap) 08/09/20 Given tetanus/diphtheria/pertussis, acel(Tdap) 10/13/18 Given SARS-CoV-2 mRNA ([id number]-aufk-tjvsg) vax 08/19/21 Given SARS-CoV-2 (COVID-19) mRNA BNT-162b2 [...] 2013 Active Maternal varicella, non-immune(Confirmed) Active 1Per [facility] chart in [facility] Social History Social History Type Response Smoking Status Never (less than 100 in lifetime) entered on: 05/27/21 Sex
--- OUTSIDE RECORDS SUMMARY | 2022-12-02 14:30 | XMS_ITS | Continuity of Care Document ---
Author Name Unknown [facility] Address [address] [facility], [address] [place] [address]- Care Team Providers Care Single End Sewer Name Role Phone Vahe RECORDS TECHNICIAN, Angie Bates Primary Care Angusy cucoian [place] [facility] [place] 09[place]17[place] [facility] [address] [facility] [place] [address]- Allergies, Adverse Reactions, Alerts No Known Allergies Immunizations Given and Recorded Vaccine Date Status Refusal Reason SARS-CoV-2 mRNA ([id number]-rmrt-vxulr) vax 08/19/21 Given SARS-CoV-2 (COVID-19) mRNA BNT-162b2 [...] II opioid drug., 158, cm, 08/21/21 11:13:00 EST Hei... Start Date: 09/10/21 Status: Ordered Home Blood Pressure Monitor See Instructions, # 1 each, Maintenance, Please monitor blood pressure as directed, 09/13/20 11:03:00 EDT, Supply Start Date: 09/13/20 Status: Ordered Lidoderm 5% film 1 patch, Topically, Daily, remove patches after 12 hours, # 10 patch, 0 Refills, Maintenance, 08/21/21 11:07:00 EST, [facility]/pharmacy #[id number], Partial fill upon patient request if the prescription is for aschedule II opioid drug., 1 patch Topically Daily,I... Start Date: 08/21/21 Status: Ordered Multivitamins with Folic Acid 1 mg oral tablet 1 tablet, By Mouth, Daily, # 90 tablet, 3 Refills, Maintenance, 05/27/21 14:44:00 EST, Tablet, [facility]/pharmacy #[id number], Partial fill upon patient request if [...] 2013 Active Maternal varicella, non-immune(Confirmed) Active 1Per [facility] chart in CIS Social History Social History Type Response Smoking Status Never (less than 100 in lifetime) entered on: 05/27/21 Sex
--- OUTSIDE RECORDS SUMMARY | 2022-12-02 14:30 | XMS_ITS | Continuity of Care Document ---
Author Name Unknown Organization [facility] ter Address [address] [place] [address]- Care Team Providers Care Multimedia Technician Name Role Phone Vahe DAMON, Angie Bates Primary Care Lorie isak En[place] [facility] [place] Date(s): 09/23/20 - 09/23/[address] [address]- Discharge Disposition: [facility]red [facility] Attending Physician: Sudhakar Alexis MD Admitting Physician: Sudhakar Alexis MD Referring Physician: Not on Staff, Referring MD Allergies, Adverse Reactions, Alerts Substance Reaction Severity Status NKA Active Immunizations Given and Recorded Vaccine Date Status Refusal Reason tetanus/diphtheria/pertussis, acel(Tdap) 08/09/20 Given tetanus/diphtheria/pertussis, acel(Tdap) 10/13/18 Given influenza virus vaccine, inactivated 05/24/20 Give n Medications acetaminophen 325 mg oral tablet 650 mg, By Mouth, Every 4 hours, PRN, (1-3), may give 325mg per patient preference and re-dose [id number] within 4 hours, if needed. Patient should [...] 2 Refills, Maintenance, 08/30/20 16:21:00 EST, Capsule, [facility]/pharmacy #[id number], Partial fill upon [...] 09/22/20 12:09:00 EDT, Route to Pharmacy Electronically, [facility]/pharmacy #[id number], Partial fill upon patientrequest if the prescription is for a schedule II op... Start Date: 09/22/20 Status: Ordered nitrofurantoin macrocrystals-monohydrate 100 mg oral capsule 1 capsule = 100 mg, By Mouth, 2 times a day, for 7 days, # 14 capsule, 0 Refills, Acute 10/01/20 0:57:00 EDT, 09/24/20 0:57:00 EDT, Capsule, [facility]/pharmacy #[id number], Partial fill upon [...] varicella, non-immune(Confirmed) Active Visual hallucinations(Confirmed) Active 1Per [facility] chart in CIS Vital Signs Most recent to oldest [Reference Range]: 1 Oxygen Saturation [94-100 %] 97 % (09/23/20 6:00 PM) Pulse Rate [55-90 bpm] 88 bpm (09/23/20 6:00 PM) Blood Pressure [90-138/55-84 mm Hg] 131/ 48mm Hg (09/23/20 6:00 PM) Respiratory Rate [16-30 br/min] 20 br/mi n (09/23/20 6:00 PM) Temperature [96.8-100.4 DegF] 98.8 DegF (09/23/20 6:00 PM) Mode of Delivery (Oxygen) Room air (09/23/20 6:00 PM) Blood pressure sites Arm, left (09/23/20 6:00 PM) Temperature Route Oral (09/23/20 6:00 PM) Social History Social History Type Response Smoking Status Former smoker, quit more than 30 days ago entered on: 02/27/20 Sex
--- OUTSIDE RECORDS SUMMARY | 2022-12-02 14:30 | XMS_ITS | Continuity of Care Document ---
Author Name Unknown Organization [facility] Address [address] [place] [address]- Care Team Providers Care Mechanical Systems Designer Name Role Phone Vahe ADVANCE SCOUT, Angie Bates Primary Care Angusy isak [place] [facility] [place](s): 10/14/21 - 11/15/[address] [address]- Attending Physician: Not on Staff, Attending MD Allergies, Adverse Reactions, Alerts No Known Allergies Immunizations Given and Recorded Vaccine Date Status Refusal Reason tetanus/diphtheria/pertussis, acel(Tdap) 10/24/21 Given tetanus/diphtheria/pertussis, acel(Tdap) 08/09/20 Given tetanus/diphtheria/pertussis, acel(Tdap) 10/13/18 Given SARS-CoV-2 mRNA ([id number]-zlto-kohyo) vax 08/19/21 Given SARS-CoV-2 (COVID-19) mRNA BNT-162b2 [...] Active 1Problem added by Discern Expert 2Per [facility] chart in CIS Social History Social History Type Response Smoking Status Never (less than 100 in lifetime) entered on: 05/27/21 Sex
--- OUTSIDE RECORDS SUMMARY | 2022-12-02 14:30 | XMS_ITS | Continuity of Care Document ---
Author Name Unknown Organization [facility] ter Address [address] [place] [address]- Care Team Providers Care Obstetrics Teacher Name Role Phone Vahe DAMON, Angie Bates Primary Care Angusalfie parisi [place] [facility] [place] - 09/22/[address] [address] Discharge Disposition: A-D/C Home Attending Physician: Lizzette Lorenzana MD Admitting Physician: Lizzette Lorenzana MD Referring Physician: Lizzette Lorenzana MD Allergies, Adverse Reactions, Alerts Substance Reaction Severity Status NKA Active Immunizations Given and Recorded Vaccine Date Status Refusal Reason tetanus/diphtheria/pertussis, acel(Tdap) 08/09/20 Given tetanus/diphtheria/pertussis, acel(Tdap) 10/13/18 Given influenza virus vaccine, inactivated 05/24/20 Give n Medications acetaminophen 325 mg oral tablet 650 mg, By Mouth, Every 4 hours, PRN, (1-3), may give 325mg per patient preference and re-dose [id number] within 4 hours, if needed. Patient should only receive a total of 650mg of Acetaminophen every 4 hours., # 50 tablet, Refills 0, Tot. Refills 0... Start Date: 09/22/20 Status: Ordered Acetaminophen Tablet 650 mg, Tablet, By Mouth, Every 4 hours, PRN for Pain , Mild, (1-3), may give 325mg per patient preference and re-dose with 325mg within 4 hours, if needed. Patient should only receive a total of 650mg of Acetaminophen every 4 hours., Routine, 09/21... Start Date: 09/21/20 Stop Date: 09/22/20 Status: Discontinued aspirin 81 mg oral delayed release tablet 2 tablet = 162 mg, By Mouth, Daily, # 90 tablet, 2 Refills, Maintenance, 03/29/20 11:27:00 EDT, CR Tablet, [facility]/pharmacy #[id number], 158, cm, 03/29/20 10:12:00 EDT, Height, [...] 09/22/20 12:09:00 EDT, Route to Pharmacy Electronically, [facility]/pharmacy #[id number], Partial fill upon patient request if the prescription is... Start Date: 09/22/20 Status: Ordered ferrous sulfate 325 mg oral enteric coated tablet 325 mg, 1, tablet, By Mouth, Daily, # 30 tablet, Refills 2, Tot. Refills 2, Maintenance, 08/30/20 16:21:00 EST, Route to Pharmacy Electronically, [facility]/pharmacy #[id number], Partial fill upon [...] 09/22/20 12:09:00 EDT, Route to Pharmacy Electronically, [facility]/pharmacy #[id number], Partial fill upon patientrequest if the prescription is for a schedule II op... Start Date: 09/22/20 Status: Ordered Ibuprofen Tablet 800 mg, Tablet, By Mouth, Every 8 hours, PRN for Pain , Moderate, (4-6), may give 400mg per patientpreference and re-dose with 400mg within 8 hours if needed. Patient should only receive a total of 800mg of Ibuprofen every 8 hours., Routine, ... Start Date: 09/21/20 Stop Date: 09/22/20 Status: Discontinued Multivitamins with Folic Acid 1 mg oral [...] varicella, non-immune(Confirmed) Active Visual hallucinations(Confirmed) Active 1Per [facility] chart in CIS Vital Signs Most recent to oldest [Reference Range]: 1 2 3 Height 157.5 cm (09/22/20 8:48 AM) 157.5 cm (09/22/20 2:00 AM) 157.5 cm (09/21/20 10:30 PM) Weight 68.72 kg (09/20/20 10:58 PM) 68.72 kg (09/20/20 9:55 PM) Oxygen Saturation [94-100 %] 99 % (09/22/20 2:00 AM) 99 % (09/21/20 10:30 PM) 99 % (09/21/20 8:25 PM) Pulse Rate [55-90 bpm] 79 bpm (09/22/20 8:48 AM) 87 bpm (09/22/20 2:00 AM) 112 bpm *H* (09/21/20 10:30 PM) Body Mass Index [18.5-24.99] 27.7 *H* (09/20/20 9:55 PM) Blood Pressure [90-138/55-84 mm Hg] 111/57mm Hg (09/22/20 8:48 AM) 109/60mm Hg (09/22/20 2:00 AM) 100/67mm Hg (09/21/20 10:30 PM) Respiratory Rate [16-30 br/min] 20 br/min (09/22/20 12:57 PM) 20 br/min (09/22/20 12:56 PM) 20 br/min (09/22/20 9:34 AM) Temperature [96.8-100.4 DegF] 98.2 DegF (09/22/20 8:48 AM) 98.2 DegF (09/22/20 2:00 AM) 98.6 DegF (09/21/20 8:25 PM) Mode of Delivery (Oxygen) Room air (09/22/20 2:00 AM) Room air (09/21/20 10:30 PM) Room air (09/21/20 8:25 PM) Blood pressure sites Arm, right (09/22/20 8:48 AM) Arm, left (09/21/20 10:17 AM) Arm, right (09/20/20 9:55 PM) Temperature Route Oral (09/22/20 8:48 AM) Oral (09/22/20 2:00 AM) Oral (09/21/20 8:25 PM) Dry Weight 68.72 kg (09/20/20 9:55 PM) Weight Obtained Via Standing scale (09/20/20 9:55 PM) Dry Weight Obtained Via Standing scale (09/20/20 9:55 PM) Social History Social History Type Response Smoking Status Former smoker, quit more than 30 days ago entered on: 02/27/20 Sex
--- OUTSIDE RECORDS SUMMARY | 2022-12-02 14:30 | XMS_ITS | Continuity of Care Document ---
Author Name Unknown Organization [facility] Address [address] [place] [address]- Care Team Providers Care Encephalographer Name Role Phone Vahe WELLNESS NURSE RN, Angie Bates Primary Care Lorie isak Encounter [facility] Date(s): 11/10/21 - 01/16/[address] [address]- Attending Physician: Not on Staff, Attending MD Allergies, Adverse Reactions, Alerts No Known Allergies Immunizations Given and Recorded Vaccine Date Status Refusal Reason tetanus/diphtheria/pertussis, acel(Tdap) 10/24/21 Given tetanus/diphtheria/pertussis, acel(Tdap) 08/09/20 Given tetanus/diphtheria/pertussis, acel(Tdap) 10/13/18 Given SARS-CoV-2 mRNA ([id number]-hkxt-laxpz) vax 08/19/21 Given SARS-CoV-2 (COVID-19) mRNA BNT-162b2 vac 06/18/21 Given influenza virus vaccine, inactivated 06/18/21 Give n influenza virus vaccine, inactivated 05/24/20 Give n Medications docusate sodium 100 mg oral capsule 100 mg, 1, capsule, By Mouth, 2 times a day, PRN, # 20 capsule, Refills 0, Tot. Refills 0, Maintenance, for constipation, 01/05/22 16:45:00 EDT, Route to Pharmacy Electronically, [facility]/pharmacy #[id number], Partial fill upon patient request if the prescriptio... Start Date: 01/05/22 Status: Ordered ibuprofen 800 mg oral tablet 800 mg, 1, tablet, By Mouth, 3 times a day, PRN, # 30 tablet, Refills 1, Tot. Refills 1, Maintenance, as needed for pain, 12/24/21 14:41:00 EDT, Route to Pharmacy Electronically, [facility]/pharmacy #[id number], Partial fill upon patient request if [...] 0 Refills, Maintenance, 11/19/21 16:55:00 EDT, Gel, [facility]/pharmacy #[id number], Partial fill upon patient request if the prescription is for a schedule II opioid... Start Date: 11/19/21 Stop Date: 11/24/21 Status: Ordered MiraLax oral powder for reconstitution = 17 Gm, By Mouth, Daily, dissolve in water before taking, # 255 Gm, 0 Refills, Maintenance, 01/05/22 16:45:00 EDT, REC Powder, [facility]/pharmacy #[id number], Partial fill upon patient request if the prescription is for a schedule II opioid drug., 17 Gm By Mouth... Start Date: 01/05/22 Status: Ordered Robitussin CoughGels 15 mg oral capsule 1 capsule = 15 mg, By Mouth, Every 4 hours, PRN as needed for cough, # 20 capsule, 0 Refills, Maintenance, 11/11/21 14:55:00 EDT, Capsule, [facility]/pharmacy #[id number], Partial fill upon patient request if theprescription is for a schedule II opioid drug., 158... Start Date: 11/11/21 Status: Ordered senna 15 mg oral tablet, chewable 2 tablet = 30 mg, Chew, 2 times a day, PRN for constipation, # 48 tablet, 0 Refills, Maintenance, 01/05/22 16:45:00 EDT, Chew Tablet, [facility]/pharmacy #[id number], Partial fill upon patient request if [...] 2013 Active Maternal varicella, non-immune(Confirmed) Active 1Per [facility] chart in [facility]IS Social History Social History Type Response Smoking Status Never (less than 100 in lifetime) entered on: 05/27/21 Sex
--- OUTSIDE RECORDS SUMMARY | 2022-12-02 14:30 | XMS_ITS | Continuity of Care Document ---
Author Name Unknown Organization [facility] ter Address [address] [place] [address]- Care Team Providers Care Truck Engine Technician Name Role Phone Vahe DAMON, Angie Bates Primary Care Lorie isak [place] [facility] [place](s[place] 09/13/20 - 09/13/[address] [address] Discharge Disposition: A-D/C Home Attending Physician: Amy [...] 16:21:00 EST, Route to Pharmacy Electronically, [facility]/pharmacy #[id number], Partial fill upon patient requestif the prescription is for a schedule II opioid natalie... Start Date: 08/30/20 Status: Ordered ferrous sulfate 325 mg oral tablet 1 tablet = 325 mg, By Mouth, 3 times a day, # 270 tablet, 2 Refills, Maintenance, 07/24/20 15:56:00EST, Tablet, [facility]/pharmacy #[id number], Partial fill upon patient request if the prescription is for a schedule II opioid drug., 158, cm, 07/12/20 16:55:00 ES... Start Date: 07/24/20 Status: Ordered Home Blood Pressure Monitor See Instructions, # 1 each, Maintenance, Please monitor blood pressure as directed, 09/13/20 11:03:00 EDT, Supply Start Date: 09/13/20 Status: Ordered Multivitamins with Folic Acid 1 mg oral tablet 1 tablet, By Mouth, Daily, # 60 tablet, 6 Refills, Maintenance, 08/09/20 11:52:00 EST, Tablet, [facility]/pharmacy #[id number], 1 tablet By Mouth Daily, 157, cm, 08/09/20 10:47:00 EST, Height, 65.45, kg, 08/01/2116:36:00 EST, Dry Weight Start Date: 08/09/20 Status: Ordered Vitamin C 500 mg oral tablet 1 tablet = 500 mg, By Mouth, Daily, # 90 tablet, 0 Refills, Maintenance, 08/30/20 16:22:00 EST, Tablet, [facility]/pharmacy #[id number], Partial fill upon patient request if [...] varicella, non-immune(Confirmed) Active Visual hallucinations(Confirmed) Active 1Per [facility] chart in CIS Social History Social History Type Response Smoking Status Former smoker, quit more than 30 days ago entered on: 02/27/20 Sex
--- OUTSIDE RECORDS SUMMARY | 2022-12-02 14:30 | XMS_ITS | Continuity of Care Document ---
Author Name Unknown Organization [facility] ter Address [address] [place] [address]- Care Team Providers Care Radiation Technician Name Role Phone Vahe TROUBLE TRACER, Angie Bates Primary Care Lorie isak Encounter [facility] [place] Date(s): 01/04/22 - 01/05/[address] [address]- Encounter Diagnosis Pyelonephritis(Final) - 01/04/22 Discharge Disposition: A-D/C Home Attending Physician: Lizzette Lorenzana MD Admitting Physician: Lizzette Lorenzana MD Referring Physician: Not on Staff, Referring MD Allergies, Adverse Reactions, Alerts No Known Allergies Immunizations Given and Recorded Vaccine Date Status Refusal Reason tetanus/diphtheria/pertussis, acel(Tdap) 10/24/21 Given tetanus/diphtheria/pertussis, acel(Tdap) 08/09/20 Given tetanus/diphtheria/pertussis, acel(Tdap) 10/13/18 Given SARS-CoV-2 mRNA ([id number]-nquv-hborb) vax 08/19/21 Given SARS-CoV-2 (COVID-19) mRNA BNT-162b2 [...] 01/05/22 16:45:00 EDT, Route to Pharmacy Electronically, [facility]/pharmacy [facility][id number], Partial fill upon patient request if the prescriptio... Start Date: 01/05/22 Status: Ordered ibuprofen 800 mg oral tablet 800 mg, 1, tablet, By Mouth, 3 times a day, PRN, # 30 tablet, Refills 1, Tot. Refills 1, Maintenance, as needed for pain, 12/24/21 14:41:00 EDT, Route to Pharmacy Electronically, [facility]/pharmacy #[id number], Partial fill upon patient request if [...] 0 Refills, Maintenance, 11/19/21 16:55:00 EDT, Gel, [facility]/pharmacy #[id number], Partial fill upon patient request if the prescription is for a schedule II opioid... Start Date: 11/19/21 Stop Date: 11/24/21 Status: Ordered MiraLax oral powder for reconstitution = 17 Gm, By Mouth, Daily, dissolve in water before taking, # 255 Gm, 0 Refills, Maintenance, 01/05/22 16:45:00 EDT, REC Powder, [facility]/pharmacy #[id number], Partial fill upon patient request if [...] pyelo(Confirmed) 2013 Active Maternal varicella, non-immune(Confirmed) Active [address] [place] [address] Group chart in CIS Results Orders for Microbiology Reports Name Date Urine Culture 01/04/22 Urine Culture (URINE CULTURE) 01/04/22 Blood Culture 01/04/22 Blood Culture #2 01/04/22 Microbiology Reports TEST:Urine Culture STATUS:Unauthenticated BODY SITE: SOURCE:URINE COLLECTED DATE/TIME:01/04/22 5:55 AM Urine Culture SPECIMEN DESCRIPTION : URINE STRAIGHT CATH. SPECIAL REQUESTS : NONE CULTURE : NO GROWTH TO DATE REPORT STATUS : PRELIMINARY REPORT TEST:Urine Culture STATUS:Auth (Verified) BODY SITE: SOURCE:URINE COLLECTED DATE/TIME:01/04/22 1:22 AM Urine Culture SPECIMEN DESCRIPTION : URINE SPECIAL REQUESTS : NONE CULTURE : <10,000 COL/ML REPORT STATUS : FINAL 01/05/2022 TEST:Blood Culture, Second Order STATUS:Unauthenticated BODY SITE: SOURCE:Blood COLLECTED DATE/TIME:01/04/22 1:15 AM Blood Culture, Second Order SPECIMEN DESCRIPTION : BLOOD RAC SPECIAL REQUESTS : NONE CULTURE : NO GROWTH AFTER 24 HOURS REPORT STATUS : PRELIMINARY REPORT TEST:Blood Culture STATUS:Unauthenticated BODY SITE: SOURCE:Blood COLLECTED DATE/TIME:01/04/22 12:55 AM Blood Culture SPECIMEN DESCRIPTION : BLOOD R AC SPECIAL REQUESTS : NONE CULTURE : NO GROWTH AFTER 24 HOURS REPORT STATUS : PRELIMINARY REPORT Vital Signs Most recent to oldest [Reference Range]: 1 2 3 Height 160 cm (01/05/22 4:00 AM) 160 cm (01/05/22 12:00 AM) 160 cm (01/04/22 8:00 PM) Weight 64.5 kg (01/04/22 1:25 PM) Oxygen Saturation [94-100 %] 99 % (01/05/22 12:55 PM) 100 % (01/05/22 9:33 AM) 100 % (01/05/22 4:00 AM) Pulse Rate [55-90 bpm] 78 bpm (01/05/22 12:55 PM) 89 bpm (01/05/22 9:33 AM) 69 bpm (01/05/22 4:00 AM) Body Mass Index [18.5-24.99] 25.2 *H* (01/04/22 1:25 PM) Blood Pressure [90-138/55-84 mm Hg] 149/87mm Hg *H* (01/05/22 12:55 PM) 153/93mm Hg *H* (01/05/22 9:33 AM) 136/77mm Hg (01/05/22 4:00 AM) Respiratory Rate [16-30 br/min] 18 br/min (01/05/22 12:55 PM) 18 br/min (01/05/22 9:33 AM) 18 br/min (01/05/22 4:00 AM) Temperature [96.8-100.4 DegF] 98.2 DegF (01/05/22 12:55 PM) 98.1 DegF (01/05/22 9:33 AM) 98.2 DegF (01/05/22 4:00 AM) Mode of Delivery (Oxygen) Room air (01/05/22 12:55 PM) Room air (01/05/22 9:33 AM) Room air (01/05/22 4:00 AM) Blood pressure sites Arm, left (01/05/22 12:55 PM) Arm, left (01/05/22 9:33 AM) Arm, left (01/04/22 1:25 PM) Temperature Route Oral (01/05/22 12:55 PM) Oral (01/05/22 9:33 AM) Oral (01/05/22 4:00 AM) Dry Weight 64.5 kg (01/04/22 1:25 PM) Social History Social History Type Response Smoking Status Never (less than 100 in lifetime) entered on: 05/27/21 Sex
--- OUTSIDE RECORDS SUMMARY | 2022-12-02 14:30 | XMS_ITS | Continuity of Care Document ---
Author Name Unknown Organization [facility] ter Address [address] [place] [address]- Care Team Providers Care Tilt Wall Supervisor Name Role Phone Isreal Patrick NP Primary Care Physician Encounter [facility] [place] Date(s): 02/17/20 - 02/17/[address] [address]- [facility] Encounter Diagnosis (Final) - 02/17/20 Discharge Disposition: A-D/C Home Attending Physician: Carmelina Quick DO Admitting Physician: Carmelina Quick DO Referring Physician: Not on Staff, Referring MD [...] of sepsis secondary to pyelonephritis 2012(Confirmed) Active Vital Signs Most recent to oldest [Reference Range]: 1 2 Oxygen Saturation [94-100 %] 100 % (02/17/20 6:00 PM) 100 % (02/17/20 1:30 PM) Pulse Rate [55-90 bpm] 79 bpm (02/17/20 6:00 PM) 84 bpm (02/17/20 1:30 PM) Blood Pressure [90-138/55-84 mm Hg] 120/ 67mm Hg (02/17/20 6:00 PM) 130/53mm Hg (02/17/20 1:30 PM) Respiratory Rate [16-30 br/min] 16 br/mi n (02/17/20 6:00 PM) 16 br/min (02/17/20 1:30 PM) Temperature [96.8-100.4 DegF] 99.1 DegF (02/17/20 1:33 PM) Mode of Delivery (Oxygen) Room air (02/17/20 6:00 PM) Room air (02/17/20 1:30 PM) Blood pressure sites Arm, left (02/17/20 6:00 PM) Arm, left (02/17/20 1:30 PM) Temperature Route Oral (02/17/20 1:33 PM) Social History Social History Type Response Tobacco Use: 4 or less cigar ettes(less than 1/4 pack)/day in last 30 days. Sex
--- OUTSIDE RECORDS SUMMARY | 2022-12-02 14:30 | XMS_ITS | Continuity of Care Document ---
Author Name Unknown Organization [facility] Address [address] [place] [address]- Care Team Providers Care Network Cabler Name Role Phone Vahe SUPERVISOR PUBLIC MESSAGE SERVICE, Angie Bates Primary Care Lorie parisi Encounter [facility] ACCT R [id number] Date(s): 09/23/20 - 10/25/[address] [address]- Attending Physician: Not on Staff, Attending MD [...] give 325mg per patient preference and re-dose [id number] within 4 hours, if needed. Patient should [...] 2 Refills, Maintenance, 08/30/20 16:21:00 EST, Capsule, [facility]/pharmacy #[id number], Partial fill upon [...] 08/30/20 16:21:00 EST, Route to Pharmacy Electronically, [facility]/pharmacy #[id number], Partial fill upon [...] 09/22/20 12:09:00 EDT, Route to Pharmacy Electronically, [facility]/pharmacy #[id number], Partial fill upon [...] 0 Refills, Maintenance, 08/30/20 16:22:00 EST, Tablet, [facility]/pharmacy #[id number], Partial fill upon [...] varicella, non-immune(Confirmed) Active Visual hallucinations(Confirmed) Active 1Per [facility] chart in [facility]IS Social History Social History Type Response Smoking Status Former smoker, quit more than 30 days ago entered on: 02/27/20 Sex
--- OUTSIDE RECORDS SUMMARY | 2022-12-02 14:30 | XMS_ITS | Continuity of Care Document ---
Author Name Unknown Organization [facility] Address [address] [place] [address]- Care Team Providers Care Chair Finisher Name Role Phone Vahe OFFAL TRIMMER, Angie Bates Primary Care Lorie isak Encounter [facility] [place] Date(s): 09/17/22 - 10/22/[address] [address]- Attending Physician: Not on Staff, Attending MD Allergies, Adverse Reactions, Alerts No Known Allergies Immunizations Given and Recorded Vaccine Date Status Refusal Reason tetanus/diphtheria/pertussis, acel(Tdap) 10/24/21 Given tetanus/diphtheria/pertussis, acel(Tdap) 08/09/20 Given tetanus/diphtheria/pertussis, acel(Tdap) 10/13/18 Given SARS-CoV-2 mRNA ([id number]) vax 08/19/21 Given SARS-CoV-2 (COVID-19) mRNA BNT-162b2 [...] Maintenance, 02/24/22 12:48:00 EDT, [facility]/pharmacy #[id number], Partial [...] Maintenance, 08/21/21 11:07:00 EST, [facility]/pharmacy #[id number], Partial fill upon patient request if the prescription is for aschedule II opioid drug., 1 patch Topically Daily,I... Start Date: 08/21/21 Status: Ordered metroNIDAZOLE 0.75% topical gel 1 application, Topically, Daily, insert vaginall with applicator nightly for 5 nights., # 45 Gm, 0 Refills, Maintenance, 11/19/21 16:55:00 EDT, Gel, [facility]/pharmacy #[id number], Partial fill upon patient request if the prescription is for a schedule II opioid... Start Date: 11/19/21 Stop Date: 11/24/21 Status: Ordered MiraLax oral powder for reconstitution = 17 Gm, By Mouth, Daily, dissolve in water before taking, # 255 Gm, 0 Refills, Maintenance, 01/05/22 16:45:00 EDT, REC Powder, [facility]/pharmacy #[id number], Partial [...] Active Maternal varicella, non-immune Confirmed Active 1Per [facility] chart in [facility]IS Social History Social History Type Response Smoking Status Never (less than 100 in lifetime) entered on: 05/27/21 Sex Patient Care team information Care Team Personnel Name: Vahe DAMON, Angie Bates Position: S PCO TA Member Role: PCP Address: Address: [address] [place] [address]- Care Team Related Persons Name: ELIN HENDRICKS Address: home [address] [place] [address] Name: ARTURO HENDRICKS Address: home [facility] Name: MARY ABIGAIL Address: [place] [address] Name: ZACHARY FRAGA Address: [id number] Address: home [address] Name: DAVI FRAGA Address: [address] Address: home [address] [place] [id number] [place] Name: RICKIE FRAGA Address: [address] Address: home [address] [place] [address]
--- OUTSIDE RECORDS SUMMARY | 2022-12-02 14:30 | XMS_ITS | Continuity of Care Document ---
Author Name Unknown Organization [facility] Address [address] [place] [address]- Care Team Providers Care Reference Data Expert Name Role Phone Vahe RN WELLNESS, Angie Bates Primary Care Angusy isak Encounter [facility] Date(s): 10/28/21 - 11/27/[address] [address]- Allergies, Adverse Reactions, Alerts No Known Allergies Immunizations Given and Recorded Vaccine Date Status Refusal Reason tetanus/diphtheria/pertussis, acel(Tdap) 10/24/21 Given tetanus/diphtheria/pertussis, acel(Tdap) 08/09/20 Given tetanus/diphtheria/pertussis, acel(Tdap) 10/13/18 Given SARS-CoV-2 mRNA ([id number]) vax 08/19/21 Given SARS-CoV-2 (COVID-19) mRNA BNT-162b2 [...] Active 1Problem added by Discern Expert 2Per [facility] chart in CIS Social History Social History Type Response Smoking Status Never (less than 100 in lifetime) entered on: 05/27/21 Sex
--- OUTSIDE RECORDS SUMMARY | 2022-12-02 14:30 | XMS_ITS | Continuity of Care Document ---
Author Name Unknown Organization [facility] ter Address [address] [place] [address]- Care Team Providers Care Biomedical Equipment Tech Name Role Phone Vahe DAMON, Anige Bates Primary Care Lorie parisi Encounter [facility] [place] Date(s): 11/14/21 - 11/14/[address] [address] Discharge Disposition: A-D/C Home Attending Physician: Som Velázquez MD Admitting Physician: Som Velázquez MD Referring Physician: Som Velázquez MD Allergies, Adverse Reactions, Alerts No Known Allergies Immunizations Given and Recorded Vaccine Date Status Refusal Reason tetanus/diphtheria/pertussis, acel(Tdap) 10/24/21 Given tetanus/diphtheria/pertussis, acel(Tdap) 08/09/20 Given tetanus/diphtheria/pertussis, acel(Tdap) 10/13/18 Given SARS-CoV-2 mRNA (mrvqblk-jlal-bkedc) vax 08/19/21 Given SARS-CoV-2 (COVID-19) mRNA BNT-162b2 [...] Active 1Problem added by Discern Expert 2Per [facility] chart in CIS Vital Signs Most recent to oldest [Reference Range]: 1 2 Height 158 cm (11/14/21 11:34 AM) Weight 67.4 kg (11/14/21 11:22 AM) Oxygen Saturation [94-100 %] 100 % (11/14/21 11:34 AM) Blood Pressure [90-138/55-84 mm Hg] 129/ 59mm Hg (11/14/21 11:34 AM) Respiratory Rate [16-30 br/min] 20 br/mi n (11/14/21 11:34 AM) Temperature [96.8-100.4 DegF] 98.1 DegF (11/14/21 11:34 AM) 98.4 DegF (11/14/21 11:22 AM) Temperature Route Oral (11/14/21 11:34 AM) Oral (11/14/21 11:22 AM) Dry Weight 67.4 kg (11/14/21 11:22 AM) Weight Obtained Via Standing scale (11/14/21 11:22 AM) Dry Weight Obtained Via Standing scale (11/14/21 11:22 AM) Social History Social History Type Response Smoking Status Never (less than 100 in lifetime) entered on: 05/27/21 Sex
--- OUTSIDE RECORDS SUMMARY | 2022-12-02 14:30 | XMS_ITS | Continuity of Care Document ---
Author Name Unknown Organization [facility] Address [address] [place] [address]- Care Team Providers Care Larry Operator Name Role Phone Vahe STATION TENDER, Angie Bates Primary Care Lorie parisi En[place] [facility] [place] R [id number] Date(s): 09/11/20 - 10/17/[address] [address]- Attending Physician: Amy Lai MD Admitting Physician: [...] give 325mg per patient preference and re-dose [id number] within 4 hours, if needed. Patient should [...] varicella, non-immune(Confirmed) Active Visual hallucinations(Confirmed) Active 1Per [facility] chart in CIS Social History Social History Type Response Smoking Status Former smoker, quit more than 30 days ago entered on: 02/27/20 Sex
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
--- OUTSIDE RECORDS SUMMARY | 2022-12-02 14:30 | XMS_ITS | Continuity of Care Document ---
Author Name Unknown Organization [facility] ter Address [address] [place] [address]- Care Team Providers Care Nail Professional Name Role Phone Vahe DAMON, Angie Bates Primary Care Angusalfie parisi Encounter [facility] [place] Date(s): 11/16/21 - 11/16/[address] [address]- Discharge Disposition: A-D/C Home Attending Physician: Andrew Walls DO Admitting Physician: Andrew Walls DO Referring Physician: Not on Staff, Referring MD Allergies, Adverse Reactions, Alerts No Known Allergies Immunizations Given and Recorded Vaccine Date Status Refusal Reason tetanus/diphtheria/pertussis, acel(Tdap) 10/24/21 Given tetanus/diphtheria/pertussis, acel(Tdap) 08/09/20 Given tetanus/diphtheria/pertussis, acel(Tdap) 10/13/18 Given SARS-CoV-2 mRNA (fjkzjlz-whjr-efxsf) vax 08/19/21 Given SARS-CoV-2 (COVID-19) mRNA BNT-162b2 vac 06/18/21 Given influenza virus vaccine, inactivated 06/18/21 Give n influenza virus vaccine, inactivated 05/24/20 Give n Medications aspirin 81 mg oral delayed release tablet 2 tablet = 162 mg, By Mouth, Daily, # 90 tablet, 4 Refills, Maintenance, 09/10/21 13:05:00 EDT, CR Tablet, [facility]/pharmacy #[id number], Partial fill upon patient request [...] Active 1Problem added by Discern Expert 2Per [facility] chart in CIS Vital Signs Most recent to oldest [Reference Range]: 1 2 3 Height 160 cm (11/16/21 10:36 AM) Weight 68 kg (11/16/21 10:36 AM) Oxygen Saturation [94-100 %] 99 % (11/16/21 12:30 PM) 100 % (11/16/21 10:32 AM) 100 % (11/16/21 10:28 AM) Pulse Rate [55-90 bpm] 88 bpm (11/16/21 12:30 PM) 104 bpm *H* (11/16/21 10:32 AM) 126 bpm *H* (11/16/21 10:28 AM) Blood Pressure [90-138/55-84 mm Hg] 128/66mm Hg (11/16/21 12:30 PM) 122/71mm Hg (11/16/21 10:32 AM) Respiratory Rate [16-30 br/min] 18 br/min (11/16/21 12:30 PM) 19 br/min (11/16/21 10:32 AM) Temperature [96.8-100.4 DegF] 98.4 DegF (11/16/21 10:32 AM) Mode of Delivery (Oxygen) Room air (11/16/21 12:30 PM) Room air (11/16/21 10:32 AM) Room air (11/16/21 10:28 AM) Blood pressure sites Arm, left (11/16/21 10:32 AM) Temperature Route Oral (11/16/21 10:32 AM) Dry Weight 68 kg (11/16/21 10:36 AM) Social History Social History Type Response Smoking Status Never (less than 100 in lifetime) entered on: 05/27/21 Sex
--- OUTSIDE RECORDS SUMMARY | 2022-12-02 14:30 | XMS_ITS | Continuity of Care Document ---
Author Name Unknown Organization [facility] ter Address [address] [place] [address]- Care Team Providers Care Packaging Designer Name Role Phone Vahe DAMON, Angie Bates Primary Care Lorie parisi Encounter [facility] [place] Date(s): 03/03/21 - 03/03/[address] [address] Discharge Disposition: A-D/C Home Attending Physician: Luis Dick MD Admitting Physician: Luis Dick MD Referring Physician: Luis Dick MD Allergies, Adverse Reactions, Alerts Substance Reaction Severity Status NKA Active Immunizations Given and Recorded Vaccine Date Status Refusal Reason tetanus/diphtheria/pertussis, acel(Tdap) 08/09/20 Given tetanus/diphtheria/pertussis, acel(Tdap) 10/13/18 Given influenza virus vaccine, inactivated 05/24/20 Give n Medications acetaminophen 325 mg oral tablet 650 mg, By Mouth, Every 4 hours, PRN, (1-3), may give 325mg per patient preference and re-dose [id number] within 4 hours, if needed. Patient should [...] 2 Refills, Maintenance, 08/30/20 16:21:00 EST, Capsule, [facility]/pharmacy #[id number], Partial fill upon [...] 08/30/20 16:21:00 EST, Route to Pharmacy Electronically, [facility]/pharmacy #[id number], Partial fill upon [...] 09/22/20 12:09:00 EDT, Route to Pharmacy Electronically, [facility]/pharmacy #[id number], Partial fill upon [...] 6 Refills, Maintenance, 08/09/20 11:52:00 EST, Tablet, [facility]/pharmacy #[id number], 1 tablet By Mouth Daily, [...] varicella, non-immune(Confirmed) Active Visual hallucinations(Confirmed) Active 1Per [facility] chart in CIS Vital Signs Most recent to oldest [Reference Range]: 1 Height 157.5 cm (03/03/21 1:38 PM) Weight 67.0 kg (03/03/21 1:19 PM) Oxygen Saturation [94-100 %] 100 % (03/03/21 1:38 PM) Pulse Rate [55-90 bpm] 87 bpm (03/03/21 1:38 PM) Blood Pressure [90-138/55-84 mm Hg] 133/ 61mm Hg (03/03/21 1:38 PM) Respiratory Rate [16-30 br/min] 18 br/mi n (03/03/21 1:38 PM) Temperature [96.8-100.4 DegF] 98.1 DegF (03/03/21 1:38 PM) Mode of Delivery (Oxygen) Room air (03/03/21 1:38 PM) Blood pressure sites Arm, left (03/03/21 1:38 PM) Temperature Route Oral (03/03/21 1:38 PM) Dry Weight 67.0 kg (03/03/21 1:19 PM) Weight Obtained Via Standing scale (03/03/21 1:19 PM) Dry Weight Obtained Via Standing scale (03/03/21 1:19 PM) Social History Social History Type Response Smoking Status Former smoker, quit more than 30 days ago entered on: 02/27/20 Sex
--- OUTSIDE RECORDS SUMMARY | 2022-12-02 14:31 | XMS_ITS | Continuity of Care Document ---
Author Name Unknown Organization [facility] ter Address [address] [place] [address]- Care Team Providers Care Supervisor Area Name Role Phone Vahe DAMON, Angie Bates Primary Care Angusalfie parisi Encounter [facility] Date(s): 01/08/22 - 01/08/[address] [address]- Discharge Disposition: A-D/C Home Attending Physician: Dana Mireles MD Admitting Physician: Dana Mireles MD Referring Physician: Dana Mireles MD Allergies, Adverse Reactions, Alerts No Known Allergies Immunizations Given and Recorded Vaccine Date Status Refusal Reason tetanus/diphtheria/pertussis, acel(Tdap) 10/24/21 Given tetanus/diphtheria/pertussis, acel(Tdap) 08/09/20 Given tetanus/diphtheria/pertussis, acel(Tdap) 10/13/18 Given SARS-CoV-2 mRNA ([id number]-iaurm) vax 08/19/21 Given SARS-CoV-2 (COVID-19) mRNA BNT-162b2 [...] 01/05/22 16:45:00 EDT, Route to Pharmacy Electronically, [facility]/pharmacy #[id number], Partial fill upon patient request if the prescriptio... Start Date: 01/05/22 Status: Ordered ibuprofen 800 mg oral tablet 800 mg, 1, tablet, By Mouth, 3 times a day, PRN, # 30 tablet, Refills 1, Tot. Refills 1, Maintenance, as needed for pain, 12/24/21 14:41:00 EDT, Route to Pharmacy Electronically, [facility]/pharmacy #[id number], Partial fill upon patient request [...] 0 Refills, Maintenance, 11/19/21 16:55:00 EDT, Gel, [facility]/pharmacy #[id number], Partial fill upon patient request if the prescription is for a schedule II opioid... Start Date: 11/19/21 Stop Date: 11/24/21 Status: Ordered MiraLax oral powder for reconstitution = 17 Gm, By Mouth, Daily, dissolve in water before taking, # 255 Gm, 0 Refills, Maintenance, 01/05/22 16:45:00 EDT, REC Powder, [facility]/pharmacy #[id number], Partial fill upon patient request [...] pyelo(Confirmed) 2013 Active Maternal varicella, non-immune(Confirmed) [facility] Vital Signs Most recent to oldest [Reference Range]: 1 Oxygen Saturation [94-100 %] 99 % (01/08/22 11:32 AM) Pulse Rate [55-90 bpm] 82 bpm (01/08/22 11:32 AM) Blood Pressure [90-138/55-84 mm Hg] 124/ 72mm Hg (01/08/22 11:32 AM) Temperature [96.8-100.4 DegF] 98.3 DegF (01/08/22 11:32 AM) Mode of Delivery (Oxygen) Room air (01/08/22 11:32 AM) Blood pressure sites Arm, right (01/08/22 11:32 AM) Social History Social History Type Response Smoking Status Never (less than 100 in lifetime) entered on: 05/27/21 Sex
--- OUTSIDE RECORDS SUMMARY | 2022-12-02 14:31 | XMS_ITS | Continuity of Care Document ---
Author Name Unknown Organization [facility] Address [address] [place] [address]- Care Team Providers Care Director Of Business Development Name Role Phone Isreal Patrick NP Primary Care Physician Encounter [facility] Date(s): 05/20/20 - 06/19/20 [facility] [address] [place] [address]- Allergies, Adverse Reactions, Alerts Substance Reaction Severity [...] 2012 Active Maternal varicella, non-immune(Confirmed) Active 1Per [facility] chart in CIS 2Pt requesting [facility] - will send communicate for telehealth visit with [facility]. Social History Social History Type Response Smoking Status Former smoker, quit more than 30 days ago entered on: 02/27/20 Sex
--- OUTSIDE RECORDS SUMMARY | 2022-12-02 14:31 | XMS_ITS | Continuity of Care Document ---
Author Name Unknown Organization [facility] Address [address] [place] [address]- Care Team Providers Care Corridor Redevelopment Manager Name Role Phone Vahe PRECAST MOLDER, Angie Bates Primary Care Angusy isak Encounter [facility] Date(s): 12/23/21 - 01/22/[address] [id number] Attending Physician: AdmHilda abebe Admitting Physician: AdmtrHilda Referring Physician: Admtr, Ar8 Allergies, Adverse Reactions, Alerts No Known Allergies Immunizations Given and Recorded Vaccine Date Status Refusal Reason tetanus/diphtheria/pertussis, acel(Tdap) 10/24/21 Given tetanus/diphtheria/pertussis, acel(Tdap) 08/09/20 Given tetanus/diphtheria/pertussis, acel(Tdap) 10/13/18 Given SARS-CoV-2 mRNA ([id number]-tomz-gnjhu) vax 08/19/21 Given SARS-CoV-2 (COVID-19) mRNA BNT-162b2 vac 06/18/21 Given influenza virus vaccine, inactivated 06/18/21 Give n influenza virus vaccine, inactivated 05/24/20 Give n Medications docusate sodium 100 mg oral capsule 100 mg, 1, capsule, By Mouth, 2 times a day, PRN, # 20 capsule, Refills 0, Tot. Refills 0, Maintenance, for constipation, 01/05/22 16:45:00 EDT, Route to Pharmacy Electronically, [facility]/pharmacy #[id number], Partial fill upon patient request if the prescriptio... Start Date: 01/05/22 Status: Ordered ibuprofen 800 mg oral tablet 800 mg, 1, tablet, By Mouth, 3 times a day, PRN, # 30 tablet, Refills 1, Tot. Refills 1, Maintenance, as needed for pain, 12/24/21 14:41:00 EDT, [id number] fill upon patient request if the prescriptio... Start Date: 12/24/21 Status: Ordered Lidoderm 5% film 1 patch, Topically, Daily, remove patches after 12 hours, # 10 patch, 0 Refills, Maintenance, 08/21/21 11:07:00 EST, [facility]/pharmacy #[id number], Partial fill upon patient request if the prescription is for aschedule II opioid drug., 1 patch Topically Daily,I... Start Date: 08/21/21 Status: Ordered metroNIDAZOLE 0.75% topical gel 1 application, Topically, Daily, insert vaginall with applicator nightly for 5 nights., # 45 Gm, 0 Refills, Maintenance, 11/19/21 16:55:00 EDT, Gel, [facility]/pharmacy #[id number], Partial fill upon patient request if the prescription is for a schedule II opioid... Start Date: 11/19/21 Stop Date: 11/24/21 Status: Ordered MiraLax oral powder for reconstitution = 17 Gm, By Mouth, Daily, dissolve in water before taking, # 255 Gm, 0 Refills, Maintenance, 01/05/22 16:45:00 EDT, REC Powder, [facility]/pharmacy #[id number], Partial fill upon patient request if the prescription is for a schedule II opioid drug., 17 Gm By Mouth... Start Date: 01/05/22 Status: Ordered Robitussin CoughGels 15 mg oral capsule 1 capsule = 15 mg, By Mouth, Every 4 hours, PRN as needed for cough, # 20 capsule, 0 Refills, Maintenance, 11/11/21 14:55:00 EDT, Capsule, [facility]/pharmacy #[id number], Partial fill upon patient request if theprescription is for a schedule II opioid drug., 158... Start Date: 11/11/21 Status: Ordered senna 15 mg oral tablet, chewable 2 tablet = 30 mg, Chew, 2 times a day, PRN for constipation, # 48 tablet, 0 Refills, Maintenance, 01/05/22 16:45:00 EDT, Chew Tablet, [facility]/pharmacy #[id number], Partial fill upon patient request if the prescription is for a schedule II opioid drug., 160, cm,... Start Date: 01/05/22 Status: Ordered Tylenol 325 mg oral capsule 2 capsule = 650 mg, By Mouth, Every 4 hours, PRN as needed for pain, # 20 capsule, 0 Refills, Acute01/24/22 14:39:00 EDT, 12/24/21 14:40:00 EDT, Capsule, [facility]/pharmacy #[id number], Partial fill upon patient request [...] 2012 Active Maternal varicella, non-immune(Confirmed) Active 1Per [facility] chart in CIS Vital Signs Most recent to oldest [Reference Range]: 1 Height 160 cm (08/18/18 4:30 PM) Social History Social History Type Response Smoking Status Never (less than 100 in lifetime) entered on: 05/27/21 Sex
--- OUTSIDE RECORDS SUMMARY | 2022-12-02 14:31 | XMS_ITS | Continuity of Care Document ---
Author Name Unknown Organization [facility] Address [address] [place] [address]- Care Team Providers Care Glaze Carrier Name Role Phone Vahe STORY TELLER, Angie Bates Primary Care Lorie isak Encounter [facility] Date(s): 03/03/21 - 04/02/[address] [address]- Allergies, Adverse Reactions, Alerts Substance Reaction Severity Status NKA Active Immunizations Given and Recorded Vaccine Date Status Refusal Reason tetanus/diphtheria/pertussis, acel(Tdap) 08/09/20 Given tetanus/diphtheria/pertussis, acel(Tdap) 10/13/18 Given influenza virus vaccine, inactivated 05/24/20 Give n Medications acetaminophen 325 mg oral tablet 650 mg, By Mouth, Every 4 hours, PRN, (1-3), may give 325mg per patient preference and re-dose [id number] within 4 hours, if needed. Patient should [...] 08/30/20 16:21:00 EST, Route to Pharmacy Electronically, [facility]/pharmacy #[id number], Partial fill upon patient requestif the [...] 09/22/20 12:09:00 EDT, Route to Pharmacy Electronically, [facility]/pharmacy #[id number], Partial fill upon patientrequest if the [...] 6 Refills, Maintenance, 08/09/20 11:52:00 EST, Tablet, [facility]/pharmacy #[id number], 1 tablet By Mouth Daily, 157, cm, 08/09/20 10:47:00 EST, Height, 65.45, kg, 08/01/2116:36:00 EST, Dry Weight Start Date: 08/09/20 Status: Ordered Vitamin C 500 mg oral tablet 1 tablet = 500 mg, By Mouth, Daily, # 90 tablet, 0 Refills, Maintenance, 08/30/20 16:22:00 EST, Tablet, [facility]/pharmacy #[id number], Partial fill upon patient [...] varicella, non-immune(Confirmed) Active Visual hallucinations(Confirmed) Active 1Per [facility] chart in CIS Social History Social History Type Response Smoking Status Former smoker, quit more than 30 days ago entered on: 02/27/20 Sex
--- OUTSIDE RECORDS SUMMARY | 2022-12-02 14:31 | XMS_ITS | Continuity of Care Document ---
Author Name Unknown Organization [facility] Address [address] [place] [address]- Care Team Providers Care Invisible Braces Orthodontist Name Role Phone Vahe SYSTEM SPECIALIST, Angie Bates Primary Care Lorie norwooddayana Encounter [facility] Date(s): 05/23/21 - 06/22/[address] [address]- Allergies, Adverse Reactions, Alerts Substance Reaction Severity [...] 2013 Active Maternal varicella, non-immune(Confirmed) Active 1Per [facility] chart in CIS Social History Social History Type Response Smoking Status Never (less than 100 in lifetime) entered on: 05/27/21 Sex
--- OUTSIDE RECORDS SUMMARY | 2022-12-02 14:31 | XMS_ITS | Continuity of Care Document ---
Author Name Unknown Organization [facility] Address [address] [place] [address]- Care Team Providers Care Mediation Commissioner Name Role Phone Vahe MANAGER PRINTING, Angie Bates Primary Care Lorie norwooddaynaa Encounter [facility] Date(s): 08/04/20 - 09/03/[address] [address]- Allergies, Adverse Reactions, Alerts Substance Reaction Severity [...] varicella, non-immune(Confirmed) Active Visual hallucinations(Confirmed) Active 1Per [facility] chart in CIS Social History Social History Type Response Smoking Status Former smoker, quit more than 30 days ago entered on: 02/27/20 Sex
--- OUTSIDE RECORDS SUMMARY | 2022-12-02 14:31 | XMS_ITS | Continuity of Care Document ---
Author Name Unknown Organization [facility] ter Address [address] [place] [address]- Care Team Providers Care Anchor Tack Puller Name Role Phone Vahe DAMON, Angie Bates Primary Care Lorie isak Encounter [facility] Date(s): 11/19/21 - 12/25/[address] [address]- Attending Physician: oRbert Koehler DO Admitting Physician: Robert Koehler DO Referring Physician: Loren Arenas DO Allergies, Adverse Reactions, Alerts No Known Allergies Immunizations Given and Recorded Vaccine Date Status Refusal Reason tetanus/diphtheria/pertussis, acel(Tdap) 10/24/21 Given tetanus/diphtheria/pertussis, acel(Tdap) 08/09/20 Given tetanus/diphtheria/pertussis, acel(Tdap) 10/13/18 Given SARS-CoV-2 mRNA ([id number]-hqek-rlqyn) vax 08/19/21 Given SARS-CoV-2 (COVID-19) mRNA BNT-162b2 [...] 12/24/21 14:41:00 EDT, Route to Pharmacy Electronically, [facility]/pharmacy #[id number], Partial fill upon patient [...] 2013 Active Maternal varicella, non-immune(Confirmed) Active 1Per [facility] chart in CIS Social History Social History Type Response Smoking Status Never (less than 100 in lifetime) entered on: 05/27/21 Sex
--- OUTSIDE RECORDS SUMMARY | 2022-12-02 14:31 | XMS_ITS | Continuity of Care Document ---
Author Name Unknown Organization [facility] ter Address [address] [place] [address]- Care Team Providers Care Plastic Technician Name Role Phone Vahe DAMON, Angie Bates Primary Care Angusalfie parisi En[place] [facility] Date(s): 09/23/20 - 09/24/[address] [address] Discharge Disposition: A-D/C Home Attending Physician: Leyda Elias MD Admitting Physician: Leyda Elias MD Referring Physician: Leyda Elias MD Allergies, Adverse Reactions, Alerts Substance Reaction Severity Status NKA Active Immunizations Given and Recorded Vaccine Date Status Refusal Reason tetanus/diphtheria/pertussis, acel(Tdap) 08/09/20 Given tetanus/diphtheria/pertussis, acel(Tdap) 10/13/18 Given influenza virus vaccine, inactivated 05/24/20 Give n Medications acetaminophen 325 mg oral tablet 650 mg, By Mouth, Every 4 hours, PRN, (1-3), may give 325mg per patient preference and re-dose [id number] within 4 hours, if needed. Patient should [...] 2 Refills, Maintenance, 08/30/20 16:21:00 EST, Capsule, [facility]/pharmacy #[id number], Partial fill upon patient request if [...] 08/30/20 16:21:00 EST, Route to Pharmacy Electronically, [facility]/pharmacy #[id number], Partial fill upon patient requestif the [...] 09/22/20 12:09:00 EDT, Route to Pharmacy Electronically, [facility]/pharmacy #[id number], Partial fill upon patientrequest if the [...] 6 Refills, Maintenance, 08/09/20 11:52:00 EST, Tablet, [facility]/pharmacy #[id number], 1 tablet By Mouth Daily, 157, cm, 08/09/20 10:47:00 EST, Height, 65.45, kg, 08/01/2116:36:00 EST, Dry Weight Start Date: 08/09/20 Status: Ordered Vitamin C 500 mg oral tablet 1 tablet = 500 mg, By Mouth, Daily, # 90 tablet, 0 Refills, Maintenance, 08/30/20 16:22:00 EST, Tablet, [facility]/pharmacy #[id number], Partial fill upon patient request if [...] Maternal varicella, non-immune(Confirmed) Active Visual hallucinations(Confirmed) [facility] CIS Vital Signs Most recent to oldest [Reference Range]: 1 Pulse Rate [55-90 bpm] 82 bpm (09/24/20 12:09 AM) Blood Pressure [90-138/55-84 mm Hg] 138/ 68mm Hg (09/24/20 12:09 AM) Respiratory Rate [16-30 br/min] 19 br/mi n (09/24/20 12:09 AM) Temperature [96.8-100.4 DegF] 98.1 DegF (09/24/20 12:09 AM) Blood pressure sites Arm, left (09/24/20 12:09 AM) Temperature Route Oral (09/24/20 12:09 AM) Social History Social History Type Response Smoking Status Former smoker, quit more than 30 days ago entered on: 02/27/20 Sex
--- OUTSIDE RECORDS SUMMARY | 2022-12-02 14:31 | XMS_ITS | Continuity of Care Document ---
Author Name Unknown Organization [facility] Address [address] [place] [address]- Care Team Providers Care Delivery Table Operator Name Role Phone Vahe CLOCK MAKER, Angie Bates Primary Care Lorie parisi Encounter [facility] Date(s): 08/07/20 - 09/06/[address] [address]- Allergies, Adverse Reactions, Alerts Substance Reaction Severity [...] varicella, non-immune(Confirmed) Active Visual hallucinations(Confirmed) Active 1Per [facility] chart in CIS Social History Social History Type Response Smoking Status Former smoker, quit more than 30 days ago entered on: 02/27/20 Sex
--- OUTSIDE RECORDS SUMMARY | 2022-12-02 14:31 | XMS_ITS | Continuity of Care Document ---
Author Name Unknown Organization [facility] Address [address] [place] [address]- Care Team Providers Care Route Salesman Name Role Phone Vahe SENIOR DYNAMICS CRM DEVELOPER, Angie Bates Primary Care Lorie parisi Encounter [facility] Date(s): 02/19/22 - 04/03/[address] [address] Attending Physician: Not on Staff, Attending MD Allergies, Adverse Reactions, Alerts No Known Allergies Immunizations Given and Recorded Vaccine Date Status Refusal Reason tetanus/diphtheria/pertussis, acel(Tdap) 10/24/21 Given tetanus/diphtheria/pertussis, acel(Tdap) 08/09/20 Given tetanus/diphtheria/pertussis, acel(Tdap) 10/13/18 Given SARS-CoV-2 mRNA ([id number]-hnsi-[id number]) vax 08/19/21 Given SARS-CoV-2 (COVID-19) mRNA BNT-162b2 vac 06/18/21 Given influenza virus vaccine, inactivated 06/18/21 Give n influenza virus vaccine, inactivated 05/24/20 Give n Medications docusate sodium 100 mg oral capsule 100 mg, 1, capsule, By Mouth, 2 times a day, PRN, # 20 capsule, Refills 0, Tot. Refills 0, Maintenance, for constipation, 01/05/22 16:45:00 EDT, Route to Pharmacy Electronically, [facility]/pharmacy #[id number], Partial fill upon patient request if the prescriptio... Start Date: 01/05/22 Status: Ordered ethinyl estradiol-norelgestromin 35 mcg-150 mcg/24 hr transdermal film, extended release 1 patch, Topically, Every week, apply a new patch weekly for 3 weeks, remove for 1 week, then repeat cycle, # 3 each, 11 Refills, Maintenance, 02/24/22 12:48:00 EDT, [facility]/pharmacy #[id number], Partial fill upon patient request if the prescription is for a sc... Start Date: 02/24/22 Status: Ordered ibuprofen 800 mg oral tablet 800 mg, 1, tablet, By Mouth, 3 times a day, PRN, # 30 tablet, Refills 1, Tot. Refills 1, Maintenance, as needed for pain, 12/24/21 14:41:00 EDT, Route to Pharmacy Electronically, [facility]/pharmacy #[id number], Partial fill upon patient request if the prescriptio... Start Date: 12/24/21 Status: Ordered Lidoderm 5% film 1 patch, Topically, Daily, remove patches after 12 hours, # 10 patch, 0 Refills, Maintenance, 08/21/21 11:07:00 EST, [facility]/pharmacy #[id number], Partial fill upon patient request if the prescription is for aschedule II opioid drug., 1 patch Topically Daily,I... Start Date: 08/21/21 Status: Ordered metroNIDAZOLE 0.75% topical gel 1 application, Topically, Daily, insert vaginall with applicator nightly for 5 nights., # 45 Gm, 0 Refills, Maintenance, 11/19/21 16:55:00 EDT, Gel, [facility]/pharmacy #[id number], Partial fill upon patient request if the prescription is for a schedule II opioid... Start Date: 11/19/21 Stop Date: 11/24/21 Status: Ordered MiraLax oral powder for reconstitution = 17 Gm, By Mouth, Daily, dissolve in water before taking, # 255 Gm, 0 Refills, Maintenance, 01/05/22 16:45:00 EDT, REC Powder, [facility]/pharmacy #[id number], Partial fill upon patient request if [...] Active Maternal varicella, non-immune Confirmed Active 1Per [facility] chart in CIS Social History Social History Type Response Smoking Status Never (less than 100 in lifetime) entered on: 05/27/21 Sex Patient Care team information Personnel Name: Vahe DAMON, Angie Bates Address: Address: [address] [place] [address]
--- OUTSIDE RECORDS SUMMARY | 2022-12-02 14:31 | XMS_ITS | Continuity of Care Document ---
Author Name Unknown Organization [facility] ter Address [address] [place] [address]- Care Team Providers Care Clinical Nursing Professor Name Role Phone Vahe DRUG ROOM CLERK, Angie Bates Primary Care Angusalfie parisi [place] [facility] Date(s[place] 12/19/21 - 12/22/[address] [address] Discharge Disposition: A-D/C Home Attending Physician: Luis Dick MD Admitting Physician: Luis Dick MD Referring Physician: Orion Chanel DO Allergies, Adverse Reactions, Alerts No Known Allergies Immunizations Given and Recorded Vaccine Date Status Refusal Reason tetanus/diphtheria/pertussis, acel(Tdap) 10/24/21 Given tetanus/diphtheria/pertussis, acel(Tdap) 08/09/20 Given tetanus/diphtheria/pertussis, acel(Tdap) 10/13/18 Given SARS-CoV-2 mRNA ([id number]-hyiw-[id number]) vax 08/19/21 Given SARS-CoV-2 (COVID-19) mRNA BNT-162b2 [...] 2013 Active Maternal varicella, non-immune(Confirmed) Active 1Per [facility] chart in CIS Vital Signs Most recent to oldest [Reference Range]: 1 2 3 Height 157.48 cm (12/22/21 9:00 AM) 157.48 cm (12/22/21 12:00 AM) 157.48 cm (12/21/21 3:54 PM) Weight 68.18 kg (12/19/21 4:01 PM) Oxygen Saturation [94-100 %] 100 % (12/22/21 12:00 AM) 99 % (12/21/21 5:35 AM) 98 % (12/21/21 3:59 AM) Pulse Rate [55-90 bpm] 82 bpm (12/22/21 1:25 PM) 73 bpm (12/22/21 11:30 AM) 70 bpm (12/22/21 9:00 AM) Body Mass Index [18.5-24.99] 27.49 *H* (12/19/21 4:01 PM) Blood Pressure [90-138/55-84 mm Hg] 123/74mm Hg (12/22/21 1:25 PM) 117/72mm Hg (12/22/21 11:30 AM) 118/68mm Hg (12/22/21 9:00 AM) Respiratory Rate [16-30 br/min] 19 br/min (12/22/21 11:30 AM) 18 br/min (12/22/21 9:00 AM) 17 br/min (12/22/21 12:00 AM) Temperature [96.8-100.4 DegF] 98.1 DegF (12/22/21 9:00 AM) 97.8 DegF (12/22/21 12:00 AM) 98.1 DegF (12/21/21 3:54 PM) Mode of Delivery (Oxygen) Room air (12/22/21 1:25 PM) Room air (12/22/21 11:30 AM) Room air (12/22/21 12:00 AM) Blood pressure sites Arm, right (12/22/21 1:25 PM) Arm, right (12/22/21 11:30 AM) Arm, right (12/21/21 3:54 PM) Temperature Route Oral (12/22/21 9:00 AM) Oral (12/22/21 12:00 AM) Oral (12/21/21 3:54 PM) Dry Weight 68.18 kg (12/19/21 4:01 PM) Weight Obtained Via Patient/family state d (12/19/21 4:01 PM) Dry Weight Obtained Via Patient/family s tated (12/19/21 4:01 PM) Social History Social History Type Response Smoking Status Never (less than 100 in lifetime) entered on: 05/27/21 Sex
--- OUTSIDE RECORDS SUMMARY | 2022-12-02 14:31 | XMS_ITS | Continuity of Care Document ---
Author Name Unknown Organization [facility] Address [address] [place] [address]- Care Team Providers Care Change Booth Attendant Name Role Phone Isreal Patrick NP Primary Care Physician [place] [facility] [place] 04[place]04/20 [facility] [address] [place] [address] [facility] Allergies, Adverse Reactions, Alerts Substance Reaction Severity [...] sepsis secondary to pyelo(Confirmed) 2012 Active 1Per [facility] chart in CIS 2Per [facility] chart in CIS 3Pt requesting [facility] services - will send communicate for telehealth visit with [facility]. Social History Social History Type Response Smoking Status Former smoker, quit more than 30 days ago entered on: 02/27/20 Sex
--- OUTSIDE RECORDS SUMMARY | 2022-12-02 14:31 | XMS_ITS | Continuity of Care Document ---
Author Name Unknown Organization [facility] ter Address [address] [place] [address]- Care Team Providers Care Edging Machine Operator Name Role Phone Isreal Patrick NP Primary Care Physician [place] [facility] [facility] [place] - 06/04/[address] [address] Discharge Disposition: A-D/C Home Attending Physician: Leyda [...] Post- depression(Confirmed) Active H/O pre-eclampsia(Confirmed) 2015 Active H/O sepsis secondary to pyelo(Confirmed) 2012 Active Maternal varicella, non-immune(Confirmed) [facility] 2Pt requesting [facility] services - will send communicate for telehealth visit with [facility]. Vital Signs Most recent to oldest [Reference Range]: 1 Weight 61.5 kg (06/04/20 3:22 AM) Oxygen Saturation [94-100 %] 100 % (06/04/20 3:19 AM) Pulse Rate [55-90 bpm] 105 bpm *H* (06/04/20 3:19 AM) Blood Pressure [90-138/55-84 mm Hg] 133/ 62mm Hg (06/04/20 3:19 AM) Respiratory Rate [16-30 br/min] 18 br/mi n (06/04/20 3:19 AM) Temperature [96.8-100.4 DegF] 98.2 DegF (06/04/20 3:19 AM) Mode of Delivery (Oxygen) Room air (06/04/20 3:19 AM) Blood pressure sites Arm, right (06/04/20 3:19 AM) Temperature Route Oral (06/04/20 3:19 AM) Dry Weight 61.5 kg (06/04/20 3:22 AM) Weight Obtained Via Standing scale (06/04/20 3:22 AM) Social History Social History Type Response Smoking Status Former smoker, quit more than 30 days ago entered on: 02/27/20 Sex
--- OUTSIDE RECORDS SUMMARY | 2022-12-02 14:31 | XMS_ITS | Continuity of Care Document ---
Author Name Unknown Organization [facility] Address [address] [place] [address]- Care Team Providers Care Logistics Operations Director Name Role Phone sIreal Patrick NP Primary Care Physician [place] [facility] [place] - 07/09/[address] [address]- [facility] Attending Physician: Hilda Decker Admitting Physician: Hilda Decker Referring Physician: Hilda Decker Allergies, Adverse Reactions, Alerts Substance Reaction Severity Status NKA Active Immunizations Given and Recorded Vaccine Date Status Refusal Reason tetanus/diphtheria/pertussis, acel(Tdap) 10/13/18 Given Medications acetaminophen 325 mg oral tablet 650 mg, By Mouth, Every 4 hours, PRN, (1-3), may give 325mg per patient preference and re-dose [id number] within 4 hours, if needed. Patient should [...] give 400mg per patient preference and re-dose [id number] within 8 hours if needed. Patient should [...]
--- OUTSIDE RECORDS SUMMARY | 2022-12-02 14:31 | XMS_ITS | Continuity of Care Document ---
Author Name Unknown Organization [facility] Address [address] [place] [address]- Care Team Providers Care Commercial Energy Rater Name Role Phone Isreal Patrick NP Primary Care Physician Encounter [facility] [place] Date(s): 05/24/20 - 07/03/[address] [address]- Attending Physician: Not on Staff, Attending MD [...] varicella, non-immune(Confirmed) Active Visual hallucinations(Confirmed) Active 1[facility] chart in CIS Social History Social History Type Response Smoking Status Former smoker, quit more than 30 days ago entered on: 02/27/20 Sex
--- OUTSIDE RECORDS SUMMARY | 2022-12-02 14:31 | XMS_ITS | Continuity of Care Document ---
Author Name Unknown Organization [facility] Address [address] [place] [address]- Care Team Providers Care Filter Tender Jelly Name Role Phone Vahe BEEF KILLER, Angie Bates Primary Care Lorie isak En[place] [facility] [place] Date(s): 10/14/21 - 01/08/[address] [address]- Attending Physician: Not on Staff, Attending MD Allergies, Adverse Reactions, Alerts No Known Allergies Immunizations Given and Recorded Vaccine Date Status Refusal Reason tetanus/diphtheria/pertussis, acel(Tdap) 10/24/21 Given tetanus/diphtheria/pertussis, acel(Tdap) 08/09/20 Given tetanus/diphtheria/pertussis, acel(Tdap) 10/13/18 Given SARS-CoV-2 mRNA (cyssays-rjkr-wdgjv) vax 08/19/21 Given SARS-CoV-2 (COVID-19) mRNA BNT-162b2 [...] 01/05/22 16:45:00 EDT, Route to Pharmacy Electronically, [facility]/pharmacy #[id number], Partial fill upon patient request if the prescriptio... Start Date: 01/05/22 Status: Ordered ibuprofen 800 mg oral tablet 800 mg, 1, tablet, By Mouth, 3 times a day, PRN, # 30 tablet, Refills 1, Tot. Refills 1, Maintenance, as needed for pain, 12/24/21 14:41:00 EDT, Route to Pharmacy Electronically, [facility]/pharmacy #[id number], Partial fill upon patient request [...] 0 Refills, Maintenance, 11/19/21 16:55:00 EDT, Gel, [facility]/pharmacy #[id number], Partial fill upon patient request if the prescription is for a schedule II opioid... Start Date: 11/19/21 Stop Date: 11/24/21 Status: Ordered MiraLax oral powder for reconstitution = 17 Gm, By Mouth, Daily, dissolve in water before taking, # 255 Gm, 0 Refills, Maintenance, 01/05/22 16:45:00 EDT, REC Powder, [facility]/pharmacy #[id number], Partial fill upon patient request [...] pyelo(Confirmed) 2013 Active Maternal varicella, non-immune(Confirmed) [facility] Social History Social History Type Response Smoking Status Never (less than 100 in lifetime) entered on: 05/27/21 Sex
--- OUTSIDE RECORDS SUMMARY | 2022-12-02 14:31 | XMS_ITS | Continuity of Care Document ---
Author Name Unknown Organization [facility] Address [address] [place] [address]- Care Team Providers Care Qa Specialist Name Role Phone Vahe ABATTOIR MANAGER, Angie Bates Primary Care Lorie isak [facility] [place] Date(s): 08/14/22 - [facility] [address] [address]- Attending Physician: Not on Staff, Attending MD Allergies, Adverse Reactions, Alerts No Known Allergies Immunizations Given and Recorded Vaccine Date Status Refusal Reason tetanus/diphtheria/pertussis, acel(Tdap) 10/24/21 Given tetanus/diphtheria/pertussis, acel(Tdap) 08/09/20 Given tetanus/diphtheria/pertussis, acel(Tdap) 10/13/18 Given SARS-CoV-2 mRNA (zezynjf-iawr-kyyaj) vax 08/19/21 Given SARS-CoV-2 (COVID-19) mRNA BNT-162b2 vac 06/18/21 Given influenza virus vaccine, inactivated 06/18/21 Give n influenza virus vaccine, inactivated 05/24/20 Give n Medications docusate sodium 100 mg oral capsule 100 mg, 1, capsule, By Mouth, 2 times a day, PRN, # 20 capsule, Refills 0, Tot. Refills 0, Maintenance, for constipation, 01/05/22 16:45:00 EDT, Route to Pharmacy Electronically, [facility]/pharmacy #[id number], Partial fill upon patient request if the prescriptio... Start Date: 01/05/22 Status: Ordered ethinyl estradiol-norelgestromin 35 mcg-150 mcg/24 hr transdermal film, extended release 1 patch, Topically, Every week, apply a new patch weekly for 3 weeks, remove for 1 week, then repeat cycle, # 3 each, 11 Refills, Maintenance, 02/24/22 12:48:00 EDT, [facility]/pharmacy #[id number], Partial fill upon patient request if the prescription is for a sc... Start Date: 02/24/22 Status: Ordered ibuprofen 800 mg oral tablet 800 mg, 1, tablet, By Mouth, 3 times a day, PRN, # 30 tablet, Refills 1, Tot. Refills 1, Maintenance, as needed for pain, 12/24/21 14:41:00 EDT, Route to Pharmacy Electronically, [facility]/pharmacy #[id number], Partial fill upon patient request if the prescriptio... Start Date: 12/24/21 Status: Ordered Lidoderm 5% film 1 patch, Topically, Daily, remove patches after 12 hours, # 10 patch, 0 Refills, Maintenance, 08/21/21 11:07:00 EST, [facility]/pharmacy #[id number], Partial fill upon patient request if the prescription is for aschedule II opioid drug., 1 patch Topically Daily,I... Start Date: 08/21/21 Status: Ordered metroNIDAZOLE 0.75% topical gel 1 application, Topically, Daily, insert vaginall with applicator nightly for 5 nights., # 45 Gm, 0 Refills, Maintenance, 11/19/21 16:55:00 EDT, Gel, [facility]/pharmacy #[id number], Partial fill upon patient request if the prescription is for a schedule II opioid... Start Date: 11/19/21 Stop Date: 11/24/21 Status: Ordered MiraLax oral powder for reconstitution = 17 Gm, By Mouth, Daily, dissolve in water before taking, # 255 Gm, 0 Refills, Maintenance, 01/05/22 16:45:00 EDT, REC Powder, [facility]/pharmacy #[id number], Partial fill upon patient request if the prescription is for a schedule II opioid drug., 17 Gm By Mouth... Start Date: 01/05/22 Status: Ordered Plan B One-Step 1.5 mg oral tablet 1.5 mg, 1, tablet, By Mouth, Once, take within 5 days of unprotected intercourse, # 1 tablet, Refills 5, Tot. Refills 5, Soft Stop, 09/24/22 12:10:00 EDT, Route to Pharmacy Electronically, [facility]/pharmacy #[id number], Partial fill upon patient request if [...] Active Maternal varicella, non-immune Confirmed Active er [facility] chart in CIS Social History Social History Type Response Smoking Status Never (less than 100 in lifetime) entered on: 05/27/21 Sex Patient Care team information Care Team Personnel Name: Vahe DAMON, Angie Bates Position: S PCO TA Member Role: PCP Address: Address: [address] [place] [address]- Care Team Related Persons Name: ELIN HENDRICKS Address: home [address] [place] [address] Name: ARTURO HENDRICKS Address: home [facility] Name: ABIGAIL HERNANDEZ Address: [place] [address] Name: ZACHARY FRAGA Address: [address] Address: home [address] Name: DAVI FRAGA Address: [address] Address: home [address] [place] [address] [place] Name: RICKIE FRAGA Address: [address] Address: home [address] [place] [address]
--- OUTSIDE RECORDS SUMMARY | 2022-12-02 14:31 | XMS_ITS | Continuity of Care Document ---
Author Name Unknown Organization [facility] ter Address [address] [place] [address]- Care Team Providers Care Corrections Corporal Name Role Phone Vahe DAMON, Angie Bates Primary Care Lorie isak [place] [facility] [place] Date(s): 08/13/20 - 08/13/[address] [address] Discharge Disposition: A-D/C Home Attending Physician: Amy [...] varicella, non-immune(Confirmed) Active Visual hallucinations(Confirmed) Active 1Per [facility] chart in CIS Social History Social History Type Response Smoking Status Former smoker, quit more than 30 days ago entered on: 02/27/20 Sex
--- OUTSIDE RECORDS SUMMARY | 2022-12-02 14:31 | XMS_ITS | Continuity of Care Document ---
Author Name Unknown Organization [facility] ter Address [address] [place] [address]- Care Team Providers Care Finished Goods Planner Name Role Phone Vahe DAMON, Angie Bates Primary Care Angusalfie parisi Encounter [facility] [place] Date(s): 12/10/21 - 01/10/[address] [address]- Attending Physician: Amy Lai MD Admitting Physician: Amy Lai MD Referring Physician: Sammi Diaz MD Lilian Allergies, Adverse Reactions, Alerts No Known Allergies Immunizations Given and Recorded Vaccine Date Status Refusal Reason tetanus/diphtheria/pertussis, acel(Tdap) 10/24/21 Given tetanus/diphtheria/pertussis, acel(Tdap) 08/09/20 Given tetanus/diphtheria/pertussis, acel(Tdap) 10/13/18 Given SARS-CoV-2 mRNA (kukycol-uzid-jqldh) vax 08/19/21 Given SARS-CoV-2 (COVID-19) mRNA BNT-162b2 [...] 01/05/22 16:45:00 EDT, Route to Pharmacy Electronically, [facility]/pharmacy #[id number], Partial fill upon patient request if the prescriptio... Start Date: 01/05/22 Status: Ordered ibuprofen 800 mg oral tablet 800 mg, 1, tablet, By Mouth, 3 times a day, PRN, # 30 tablet, Refills 1, Tot. Refills 1, Maintenance, as needed for pain, 12/24/21 14:41:00 EDT, Route to Pharmacy Electronically, [facility]/pharmacy #[id number], [...] 0 Refills, Maintenance, 11/19/21 16:55:00 EDT, Gel, [facility]/pharmacy #[id number], Partial fill upon patient request if the prescription is for a schedule II opioid... Start Date: 11/19/21 Stop Date: 11/24/21 Status: Ordered MiraLax oral powder for reconstitution = 17 Gm, By Mouth, Daily, dissolve in water before taking, # 255 Gm, 0 Refills, Maintenance, 01/05/22 16:45:00 EDT, REC Powder, [facility]/pharmacy #[id number], Partial fill upon patient request [...] pyelo(Confirmed) 2013 Active Maternal varicella, non-immune(Confirmed) [facility] Social History Social History Type Response Smoking Status Never (less than 100 in lifetime) entered on: 05/27/21 Sex
--- OUTSIDE RECORDS SUMMARY | 2022-12-02 14:31 | XMS_ITS | Continuity of Care Document ---
Author Name Unknown Organization [facility] Address [address] [place] [address]- Care Team Providers Care Clean Rice Broker Name Role Phone Vahe DAMON, Angie Bates Primary Care Lorie parisi En[place] [facility] [place] Date(s): 02/19/22 - 04/11/[address] [address] Attending Physician: Valerie Sanchez CNM Admitting Physician: Valerie Sanchez CNM Allergies, Adverse Reactions, Alerts No Known Allergies Immunizations Given and Recorded Vaccine Date Status Refusal Reason tetanus/diphtheria/pertussis, acel(Tdap) 10/24/21 Given tetanus/diphtheria/pertussis, acel(Tdap) 08/09/20 Given tetanus/diphtheria/pertussis, acel(Tdap) 10/13/18 Given SARS-CoV-2 mRNA (grywwef-vlzo-ghbzm) vax 08/19/21 Given SARS-CoV-2 (COVID-19) mRNA BNT-162b2 vac 06/18/21 Given influenza virus vaccine, inactivated 06/18/21 Give n influenza virus vaccine, inactivated 05/24/20 Give n Medications docusate sodium 100 mg oral capsule 100 mg, 1, capsule, By Mouth, 2 times a day, PRN, # 20 capsule, Refills 0, Tot. Refills 0, Maintenance, for constipation, 01/05/22 16:45:00 EDT, Route to Pharmacy Electronically, [facility]/pharmacy #[id number], Partial fill upon patient request if the prescriptio... Start Date: 01/05/22 Status: Ordered ethinyl estradiol-norelgestromin 35 mcg-150 mcg/24 hr transdermal film, extended release 1 patch, Topically, Every week, apply a new patch weekly for 3 weeks, remove for 1 week, then repeat cycle, # 3 each, 11 Refills, Maintenance, 02/24/22 12:48:00 EDT, [facility]/pharmacy #[id number], Partial fill upon patient request if the prescription is for a sc... Start Date: 02/24/22 Status: Ordered ibuprofen 800 mg oral tablet 800 mg, 1, tablet, By Mouth, 3 times a day, PRN, # 30 tablet, Refills 1, Tot. Refills 1, Maintenance, as needed for pain, 12/24/21 14:41:00 EDT, Route to Pharmacy Electronically, [facility]/pharmacy #[id number], Partial fill upon patient request if [...] 0 Refills, Maintenance, 11/19/21 16:55:00 EDT, Gel, [facility]/pharmacy #[id number], Partial fill upon patient request if the prescription is for a schedule II opioid... Start Date: 11/19/21 Stop Date: 11/24/21 Status: Ordered MiraLax oral powder for reconstitution = 17 Gm, By Mouth, Daily, dissolve in water before taking, # 255 Gm, 0 Refills, Maintenance, 01/05/22 16:45:00 EDT, REC Powder, [facility]/pharmacy #[id number], Partial fill upon patient request if [...] 2013 Active Maternal varicella, non-immune Confirmed Active [address] [place] [address] Medical Group chart in CIS Social History Social History Type Response Smoking Status Never (less than 100 in lifetime) entered on: 05/27/21 Sex Patient Care team information Personnel Name: Vahe DAMON, Angie Bates Address: Address: [address] [place] [address]
--- OUTSIDE RECORDS SUMMARY | 2022-12-02 14:31 | XMS_ITS | Continuity of Care Document ---
Author Name Unknown Organization [facility] Address [address] [place] [address]- Care Team Providers Care Certified Athletic Trainer Name Role Phone Vahe DAMON, Angie Bates Primary Care Lorie parisi [id number] - 11/03/[address] [address]- Attending Physician: Not on Staff, Attending MD [...] give 325mg per patient preference and re-dose [id number] within 4 hours, if needed. Patient should [...] varicella, non-immune(Confirmed) Active Visual hallucinations(Confirmed) Active 1Per [facility] chart in CIS Social History Social History Type Response Smoking Status Former smoker, quit more than 30 days ago entered on: 02/27/20 Sex
--- OUTSIDE RECORDS SUMMARY | 2022-12-02 14:31 | XMS_ITS | Continuity of Care Document ---
Author Name Unknown Organization [facility] Address [address] [place] [address]- Care Team Providers Care Vice President Of Manufacturing Name Role Phone Vahe SAT TUTOR, Angie Bates Primary Care Lorie isak Encounter [facility] Date(s): 10/14/21 - 11/13/[address] [address]- Allergies, Adverse Reactions, Alerts No Known Allergies Immunizations Given and Recorded Vaccine Date Status Refusal Reason tetanus/diphtheria/pertussis, acel(Tdap) 10/24/21 Given tetanus/diphtheria/pertussis, acel(Tdap) 08/09/20 Given tetanus/diphtheria/pertussis, acel(Tdap) 10/13/18 Given SARS-CoV-2 mRNA (delldfw-tzhx-yeyzh) vax 08/19/21 Given SARS-CoV-2 (COVID-19) mRNA BNT-162b2 [...] 2012 Active Maternal varicella, non-immune(Confirmed) Active 1Per [facility] chart in CIS Social History Social History Type Response Smoking Status Never (less than 100 in lifetime) entered on: 05/27/21 Sex
--- OUTSIDE RECORDS SUMMARY | 2022-12-02 14:31 | XMS_ITS | Continuity of Care Document ---
Author Name Unknown Organization [facility] Address [address] [place] [address]- Care Team Providers Care Securities Broker Name Role Phone Isreal Patrick NP Primary Care Physician Encounter [facility] [place] Date(s): 05/24/20 - 07/07/[address] [address]- Attending Physician: Not on Staff, Attending MD [...] Refills, Maintenance, 05/24/20 9:35:00 EST, Tablet, [facility]/pharmacy #[id number], Partial fill upon patient request if [...] varicella, non-immune(Confirmed) Active Visual hallucinations(Confirmed) Active 1Per [facility] chart in CIS Social History Social History Type Response Smoking Status Former smoker, quit more than 30 days ago entered on: 02/27/20 Sex
--- OUTSIDE RECORDS SUMMARY | 2022-12-02 14:31 | XMS_ITS | Continuity of Care Document ---
Author Name Unknown Organization [facility] ter Address [address] [place] [address]- Care Team Providers Care Saw Edge Fuser Circular Name Role Phone Vahe DAMON, Angie Bates Primary Care Angusalfie parisi [place] [facility] [place] - 09/12/[address] [address] Attending Physician: Van Masterson MD Admitting Physician: Van Masterson MD Referring Physician: Nida Beckford MD Allergies, Adverse Reactions, Alerts Substance Reaction [...] 08/30/20 16:21:00 EST, Route to Pharmacy Electronically, [facility]/pharmacy #[id number], Partial fill upon patient requestif the prescription is for a schedule II opioid natalie... Start Date: 08/30/20 Status: Ordered ferrous sulfate 325 mg oral tablet 1 tablet = 325 mg, By Mouth, 3 times a day, # 270 tablet, 2 Refills, Maintenance, 07/24/20 15:56:00EST, Tablet, [facility]/pharmacy #[id number], Partial fill upon patient request if the prescription is for a schedule II opioid drug., 158, cm, 07/12/20 16:55:00 ES... Start Date: 07/24/20 Status: Ordered Multivitamins with Folic Acid 1 mg oral tablet 1 tablet, By Mouth, Daily, # 60 tablet, 6 Refills, Maintenance, 08/09/20 11:52:00 EST, Tablet, [facility]/pharmacy #[id number], 1 tablet By Mouth Daily, 157, cm, 08/09/20 10:47:00 EST, Height, 65.45, kg, 08/01/2116:36:00 EST, Dry Weight Start Date: 08/09/20 Status: Ordered Vitamin C 500 mg oral tablet 1 tablet = 500 mg, By Mouth, Daily, # 90 tablet, 0 Refills, Maintenance, 08/30/20 16:22:00 EST, Tablet, [facility]/pharmacy #[id number], Partial fill upon patient request [...] Maternal varicella, non-immune(Confirmed) Active Visual hallucinations(Confirmed) [facility] Social History Social History Type Response Smoking Status Former smoker, quit more than 30 days ago entered on: 02/27/20 Sex
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
--- OUTSIDE RECORDS SUMMARY | 2022-12-02 14:31 | XMS_ITS | Continuity of Care Document ---
Author Name Unknown Organization [facility] ter Address [address] [place] [address]- Care Team Providers Care Delivery Truck Driver Name Role Phone Vahe TOP AND SEAT COVER FITTER, Angei Bates Primary Care Angusalfie parisi [place] [facility] [place]/20 - 10/06/[address] [address] Attending Physician: Amy Lai MD [...] give 325mg per patient preference and re-dose [id number] within 4 hours, if needed. Patient should [...] 2 Refills, Maintenance, 08/30/20 16:21:00 EST, Capsule, [facility]/pharmacy #[id number], Partial fill upon patient request [...] 16:21:00 EST, Route to Pharmacy Electronically, [facility]/pharmacy #[id number], Partial fill upon patient requestif [...] 09/22/20 12:09:00 EDT, Route to Pharmacy Electronically, [facility]/pharmacy #[id number], Partial fill upon patientrequest if [...] 0 Refills, Maintenance, 08/30/20 16:22:00 EST, Tablet, [facility]/pharmacy #[id number], Partial fill upon patient request [...] varicella, non-immune(Confirmed) Active Visual hallucinations(Confirmed) Active 1Per [facility] chart in [facility] Social History Social History Type Response Smoking Status Former smoker, quit more than 30 days ago entered on: 02/27/20 Sex
--- OUTSIDE RECORDS SUMMARY | 2022-12-02 14:32 | XMS_ITS | Continuity of Care Document ---
Author Name Unknown Organization [facility] Address [address] [place] [address]- Care Team Providers Care Audio Visual Production Specialist Name Role Phone Vahe BUSINESS LAW INSTRUCTOR, Angie Bates Primary Care Lorie isak Encounter [facility] [place] Date(s): 08/30/20 - 09/29/[address] [address]- Allergies, Adverse Reactions, Alerts Substance Reaction Severity Status NKA Active Immunizations Given and Recorded Vaccine Date Status Refusal Reason tetanus/diphtheria/pertussis, acel(Tdap) 08/09/20 Given tetanus/diphtheria/pertussis, acel(Tdap) 10/13/18 Given influenza virus vaccine, inactivated 05/24/20 Give n Medications acetaminophen 325 mg oral tablet 650 mg, By Mouth, Every 4 hours, PRN, (1-3), may give 325mg per patient preference and re-dose [id number] within 4 hours, if needed. Patient should [...] 08/30/20 16:21:00 EST, Route to Pharmacy Electronically, [facility]/pharmacy #[id number], Partial fill upon patient [...] 09/22/20 12:09:00 EDT, Route to Pharmacy Electronically, [facility]/pharmacy #[id number], Partial fill upon patientrequest [...] 6 Refills, Maintenance, 08/09/20 11:52:00 EST, Tablet, [facility]/pharmacy #[id number], 1 tablet By Mouth Daily, 157, cm, 08/09/20 10:47:00 EST, Height, 65.45, kg, 08/01/2116:36:00 EST, Dry Weight Start Date: 08/09/20 Status: Ordered Vitamin C 500 mg oral tablet 1 tablet = 500 mg, By Mouth, Daily, # 90 tablet, 0 Refills, Maintenance, 08/30/20 16:22:00 EST, Tablet, [facility]/pharmacy #[id number], Partial fill upon patient [...] varicella, non-immune(Confirmed) Active Visual hallucinations(Confirmed) Active 1Per [facility] chart in [facility] Social History Social History Type Response Smoking Status Former smoker, quit more than 30 days ago entered on: 02/27/20 Sex
--- OUTSIDE RECORDS SUMMARY | 2022-12-02 14:32 | XMS_ITS | Continuity of Care Document ---
Author Name Unknown Organization [facility] Address [address] [place] [address]- Care Team Providers Care Machine Mover Name Role Phone Isreal Patrick NP Primary Care Physician Encounter [facility] Date(s): 02/23/20 - 03/24/20 [facility] [address] [address]- [facility] Allergies, Adverse Reactions, Alerts Substance Reaction [...] sepsis secondary to pyelo(Confirmed) 2012 Active 1Per [facility] chart in [facility] 2Per [facility] chart in [facility]IS 3Pt requesting [facility] services - will send communicate for telehealth visit with [facility]. Social History Social History Type Response Smoking Status Former smoker, quit more than 30 days ago entered on: 02/27/20 Sex
--- OUTSIDE RECORDS SUMMARY | 2022-12-02 14:32 | XMS_ITS | Continuity of Care Document ---
Author Name Unknown Organization [facility] ter Address [address] [place] [address]- Care Team Providers Care Clinical Dental Technician Name Role Phone Vahe DAMON, Angie Bates Primary Care Angusalfie parisi Encounter [facility] [place] Date(s): 02/04/21 - 02/05/[address] [address]- Discharge Disposition: A-D/C Home Attending Physician: Higinio Chanel MD Admitting Physician: Higinio Chanel MD Referring Physician: Not on Staff, Referring [...] give 325mg per patient preference and re-dose [id number] within 4 hours, if needed. Patient should [...] 2 Refills, Maintenance, 08/30/20 16:21:00 EST, Capsule, [facility]/pharmacy #[id number], Partial fill [...] 6 Refills, Maintenance, 08/09/20 11:52:00 EST, Tablet, [facility]/pharmacy #[id number], 1 tablet By Mouth Daily, 157, cm, 08/09/20 10:47:00 EST, Height, 65.45, kg, 08/01/2116:36:00 EST, Dry Weight Start Date: 08/09/20 Status: Ordered Vitamin C 500 mg oral tablet 1 tablet = 500 mg, By Mouth, Daily, # 90 tablet, 0 Refills, Maintenance, 08/30/20 16:22:00 EST, Tablet, [facility]/pharmacy #[id number], Partial fill [...] varicella, non-immune(Confirmed) Active Visual [facility](Confirmed) [facility] Results Orders for Microbiology Reports Name Date Urine Culture (URINE CULTURE) 02/04/21 Microbiology Reports TEST:Urine Culture STATUS:Unauthenticated BODY SITE: SOURCE:URINE COLLECTED DATE/TIME:02/04/21 10:48 PM Urine Culture SPECIMEN DESCRIPTION : URINE SPECIAL REQUESTS : NONE Reflexed from [id number] REPORT STATUS : PRELIMINARY REPORT Radiology Reports * Exam Date Time Procedure Performing Provider Status 02/05/21 3:54 AM Chest 2 Views Frontal and Lat Mohan Figueroa; Auth (Verified) Notes: (Chest 2 Views Frontal and Lat) Reason For Exam: Shortness of Breath, Fever;Other: RESULT: Chest 2 Views Frontal and Lat Chest 2 Views Frontal and Lat Hx of Present Illness: 3 days of cough, congestion fever; Reason: Other:; Shortness of Breath, Fever; Clinical Question(s): Pneumonia COMPARISON: Multiple prior chest x-rays, most recent dated 08/01/2020. Chest CTA dated 08/01/2020. FINDINGS: LINES AND TUBES: None. LUNGS AND PLEURA: Clear lungs. Normal pulmonary vascularity. No pleural effusion. No pneumothorax. HEART, MEDIASTINUM AND AMY: Heart is normal in size. Normal upper mediastinal and hilar contour. BONES AND SOFT TISSUES: Within normal limits. IMPRESSION: Normal chest. I have personally reviewed the images and I agree with this report. WSN: [id number] Ordering Physician: Higinio Chanel Dictated By: Chino Batista MD Dictated Date/Time: 02/05/21 9:12 am Reviewed By: Isaac Cazares MD Signed By: Isaac Cazares MD Signed Date/Time: 02/05/21 9:17 am Transcribed By: KATE Transcribed Date/Time: 02/05/21 8:02 am Vital Signs Most recent to oldest [Reference Range]: 1 2 3 Oxygen Saturation [94-100 %] 100 % (02/05/21 2:29 AM) 100 % (02/04/21 10:41 PM) 98 % (02/04/21 10:31 PM) Pulse Rate [55-90 bpm] 86 bpm (02/05/21 2:29 AM) 101 bpm *H* (02/04/21 10:41 PM) 85 bpm (02/04/21 10:31 PM) Blood Pressure [90-138/55-84 mm Hg] 131/83mm Hg (02/05/21 2:29 AM) 146/80mm Hg *H* (02/04/21 10:41 PM) Respiratory Rate [16-30 br/min] 18 br/min (02/05/21 2:29 AM) 18 br/min (02/04/21 10:41 PM) Temperature [96.8-100.4 DegF] 98.1 DegF (02/05/21 2:29 AM) 99.0 DegF (02/04/21 10:41 PM) Mode of Delivery (Oxygen) Room air (02/05/21 2:29 AM) Room air (02/04/21 10:41 PM) Blood pressure sites Arm, left (02/05/21 2:29 AM) Arm, left (02/04/21 10:41 PM) Temperature Route Oral (02/05/21 2:29 AM) Oral (02/04/21 10:41 PM) Social History Social History Type Response Smoking Status Former smoker, quit more than 30 days ago entered on: 02/27/20 Sex
--- OUTSIDE RECORDS SUMMARY | 2022-12-02 14:32 | XMS_ITS | Continuity of Care Document ---
Author Name Unknown Organization [facility] Address [address] [place] [address]- Care Team Providers Care Marbleizing Machine Tender Name Role Phone Vahe RESIDENT CARE ASSISTANT, Angie Bates Primary Care Lorie norwooddayana Encounter [facility] Date(s): 12/24/21 - 01/23/[address] [address]- Allergies, Adverse Reactions, Alerts No Known Allergies Immunizations Given and Recorded Vaccine Date Status Refusal Reason tetanus/diphtheria/pertussis, acel(Tdap) 10/24/21 Given tetanus/diphtheria/pertussis, acel(Tdap) 08/09/20 Given tetanus/diphtheria/pertussis, acel(Tdap) 10/13/18 Given SARS-CoV-2 mRNA ([id number]) vax 08/19/21 Given SARS-CoV-2 (COVID-19) mRNA BNT-162b2 [...] Electronically, [facility]/pharmacy #[id number], Partial fill upon patient request if the [...] patch, 0 Refills, Maintenance, 08/21/21 11:07:00 EST, [facility]/pharmacy #[id number], [...] 0 Refills, Maintenance, 11/11/21 14:55:00 EDT, Capsule, [facility]/pharmacy #[id number], Partial fill upon patient request if theprescription is for a schedule II opioid drug., 158... Start Date: 11/11/21 Status: Ordered senna 15 mg oral tablet, chewable 2 tablet = 30 mg, Chew, 2 times a day, PRN for constipation, # 48 tablet, 0 Refills, Maintenance, 01/05/22 16:45:00 EDT, Chew Tablet, [facility]/pharmacy #[id number], [...] 2012 Active Maternal varicella, non-immune(Confirmed) Active 1Per [facility] chart in [facility] Social History Social History Type Response Smoking Status Never (less than 100 in lifetime) entered on: 05/27/21 Sex
--- OUTSIDE RECORDS SUMMARY | 2022-12-02 14:32 | XMS_ITS | Continuity of Care Document ---
Author Name Unknown Organization [facility] Address [address] [place] [address]- Care Team Providers Care Siebel Developer Name Role Phone Isreal Patrick NP Primary Care Physician Encounter [facility] Date(s): 02/27/20 - 03/30/[address] [address]- [facility] Attending Physician: Not on Staff, Attending MD [...] sepsis secondary to pyelo(Confirmed) 2012 Active 1Per [facility] chart in [facility]IS 2Per [facility] chart in CIS 3Pt requesting [facility] services - will send communicate for telehealth visit with [facility]. Social History Social History Type Response Smoking Status Former smoker, quit more than 30 days ago entered on: 02/27/20 Sex
--- OUTSIDE RECORDS SUMMARY | 2022-12-02 14:32 | XMS_ITS | Continuity of Care Document ---
Author Name Unknown Organization [facility] Address [address] [place] [address]- Care Team Providers Care Process Architect Name Role Phone Vahe RETAIL PRESENTATION SPECIALIST, Angie Bates Primary Care Lorie parisi Encounter [facility] Date(s): 08/11/22 - 09/13/[address] [address] Attending Physician: Not on Staff, Attending MD Allergies, Adverse Reactions, Alerts No Known Allergies Immunizations Given and Recorded Vaccine Date Status Refusal Reason tetanus/diphtheria/pertussis, acel(Tdap) 10/24/21 Given tetanus/diphtheria/pertussis, acel(Tdap) 08/09/20 Given tetanus/diphtheria/pertussis, acel(Tdap) 10/13/18 Given SARS-CoV-2 mRNA ([id number]) vax 08/19/21 Given SARS-CoV-2 (COVID-19) mRNA BNT-162b2 vac 06/18/21 Given influenza virus vaccine, inactivated 06/18/21 Give n influenza virus vaccine, inactivated 05/24/20 Give n Medications docusate sodium 100 mg oral capsule 100 mg, 1, capsule, By Mouth, 2 times a day, PRN, # 20 capsule, Refills 0, Tot. Refills 0, Maintenance, for constipation, 01/05/22 16:45:00 EDT, Route to Pharmacy Electronically, [facility]/pharmacy #[id number], Partial fill upon patient request if the prescriptio... Start Date: 01/05/22 Status: Ordered ethinyl estradiol-norelgestromin 35 mcg-150 mcg/24 hr transdermal film, extended release 1 patch, Topically, Every week, apply a new patch weekly for 3 weeks, remove for 1 week, then repeat cycle, # 3 each, 11 Refills, Maintenance, 02/24/22 12:48:00 EDT, [facility]/pharmacy #[id number], Partial fill upon patient [...] patch, 0 Refills, Maintenance, 08/21/21 11:07:00 EST, [facility]/pharmacy #[id number], Partial fill upon patient request if the prescription is for aschedule II opioid drug., 1 patch Topically Daily,I... Start Date: 08/21/21 Status: Ordered metroNIDAZOLE 0.75% topical gel 1 application, Topically, Daily, insert vaginall with applicator nightly for 5 nights., # 45 Gm, 0 Refills, Maintenance, 11/19/21 16:55:00 EDT, Gel, [facility]/pharmacy #[id number], Partial fill upon patient request if the prescription is for a schedule II opioid... Start Date: 11/19/21 Stop Date: 11/24/21 Status: Ordered MiraLax oral powder for reconstitution = 17 Gm, By Mouth, Daily, dissolve in water before taking, # 255 Gm, 0 Refills, Maintenance, 01/05/22 16:45:00 EDT, REC Powder, [facility]/pharmacy #[id number], Partial fill upon patient [...] Active Maternal varicella, non-immune Confirmed Active 1Per [facility] chart in [facility]IS Social History Social History Type Response Smoking Status Never (less than 100 in lifetime) entered on: 05/27/21 Sex Patient Care team information Care Team Personnel Name: Vahe DAMON, Angie Bates Position: [facility] PCO TA Member Role: PCP Address: Address: [address] [place] [address]- Care Team Related Persons Name: ELIN HENDRICKS Address: home [address] [place] [address] Name: ARTURO HENDRICKS Address: home [facility] Name: ABIGAIL HERNANDEZ Address: home [facility] [place] Name: ZACHARY FRAGA Address: Address: home [address] [place] [address] Name: DAVI FRAGA Address: Address: home [address] Name: BENEDICT HENDRICKSRICKIE Address: Address: home [address]
--- NOTE | 2022-12-02 14:47 | PC.NURSE ---
Patient had labs drawn and then stated that she had a family emergency and that she had to leave. Patient walked out of door that is in room.
[2022-12-02 14:49] LABS: MANUAL DIFF FLAG NO
[2022-12-02 14:51] LABS: Basophils Percent Auto 0.4 % (0-2); Hematocrit 40.7 % (37.0-47.0); Hemoglobin 13.3 g/dl (12.0-16.0); Imm Gran Abs Auto 0.02 X10*3/uL (0.00-0.03); Imm Gran Pct Auto 0.2 % (0.0-0.4); Lymphocytes Absolute Auto 2.2 X10*3/uL (1.2-4.9); Lymphocytes Percent Auto 27.3 % (20-40); Mean Corpuscular HGB Conc 32.7 g/dl (31.0-35.0); Mean Corpuscular Volume 79.6 fL (80.0-98.0); Mean Platelet Volume 10.3 fL (9.4-12.3); Monocytes Absolute Auto 0.4 X10*3/uL (0.1-1.2); Monocytes Percent Auto 5.5 % (2-11); Neutrophils Absolute Auto 5.3 x10*3/uL (2.0-8.3); Neutrophils Percent Auto 66.6 % (45-73); Platelet Count 277 X10*3/uL (160-400); Red Blood Count 5.11 X10*6/uL (4.20-5.50); Red Cell Distribution Width 12.7 % (11.0-16.0)
[2022-12-02 15:09] LABS: Anion Gap 11 (12-20); Blood Urea Nitrogen 12 mg/dL (9-16); Calcium 9.4 mg/dL (8.4-10.2); Carbon Dioxide 27 mmol/L (22-29); Chloride 107 mmol/L (96-108); Creatinine Clr Calc Pharmacy 103.5; Estimated Glomerular Filt Rate > 60; Glucose Random 94 mg/dL (60-115); Potassium 3.9 mmol/L (3.3-5.1); Sodium 141 mmol/L (135-145)
[2022-12-02 15:13] LABS: D Dimer High Sensitivity < 150 NG/ML
[2022-12-02 15:20] LABS: Troponin-I High Sensitivity < 2.7 ng/L (<3.5-17.0)
== END 2022-12-02 14:53 | disposition left against medical advice (07) ==
LOC: HO.ED 14:26
PROVIDERS: Physician Assistant; Emergency Provider Emergency Medicine
DX: K08.89 Other specified disorders of teeth and supporting structures (principal); R07.9 Chest pain, unspecified
CPT/HCPCS: 36415; 71046; 80048; 84484; 85025; 85379; 93005; 99283; 99284

== ENCOUNTER 2022-12-14 13:20 | Emergency (ER) | payer MEDICAID, SELFPAY ==
[2022-12-14 13:34] VITALS: BP 140/60; PULSE 98; TEMP 36.3; O2SAT 99; BMI 26.6
--- NOTE | 2022-12-14 13:35 | ED_ITS ---
HPI - URI/Sore Throat General Chief Complaint: General Medical Stated Complaint: Strep throat/Body aches Time Seen by Provider: 12/14/22 13:35 Source: patient Mode of arrival: ambulatory Limitations: no limitations History of Present Illness HPI Narrative: 27 y/o female presents to the ER for evaluation of sore throat for the last 2 days. She reports her older son is home with strep throat. she feels like she has strep throat as well. She also reports back pains and body aches. No fevers, chills, n/v/d or abdominal pain. she is able to tolerate PO normally but it hurts to swallow. MD elicited complaint: sore throat and other (body aches) Onset (ago): day(s) (2) Consistency: constant Severity: moderate Able to tolerate fluids by mouth: Yes Exacerbating factors: swallowing Relieving factors: nothing Context: sick contacts Associated symptoms: myalgias, sore throat and cough Treatments prior to arrival: none Related Data Previous Rx's Medication Instructions Recorded amoxicillin 500 mg capsule 1,000 mg PO TID 5 days #30 caps 03/01/21 tramadol 50 mg tablet 50 mg PO Q8H PRN pain, severe 3 12/02/22 days #5 tabs amoxicillin 875 mg-potassium 1 tab PO BID #14 tabs 12/14/22 clavulanate 125 mg tablet ibuprofen 600 mg tablet 600 mg PO Q8H PRN fever or pain 12/14/22 #20 tabs Allergies Allergy/AdvReac Type Severity Reaction Status Date / Time No Known Allergies Allergy Verified 12/14/22 13:40 Review of Systems Review of Systems: Yes all other systems are reviewed and are negative [facility] Social History Social History Alcohol intake: never Advance Directives: No Advance Directives Information Provided: Yes Physical Exam Vital Signs: Vital Signs: Last Vital Signs Temp 97.3 F 12/14/22 13:34 Pulse 98 12/14/22 13:34 BP 140/60 H 12/14/22 13:34 Pulse Ox 99 12/14/22 13:34 O2 Del Method Room Air 12/14/22 13:34 BMI result Body Mass Index 26.6 Appearance: Alert. Oriented X3. No acute distress. Head: normocephalic, atraumatic. Eyes: Pupils equal, round and reactive to light. ENT: Pharynx normal. + tonsillar swelling or exudates bilaterally, uvula midline. normal voice. normal TMs bilaterally Neck: Normal inspection. Neck supple. CVS: Normal heart rate and rhythm. Pulses normal. Respiratory: No respiratory distress. Breath sounds normal. Abdomen: Soft and nontender. +BS x4 Skin: Skin warm and dry. Normal skin color. Normal skin turgor. No rashes. Extremities: No lower extremity edema. No joint swelling. Neuro/psych: Oriented X 3. Normal speech and cognition. Medical Decision Making Medical Decision Making MDM Narrative: 27 yo female presenting with sore throat and body aches after known strep throat exposure. exam is c/w strep pharyngitis. nontoxic w/ stable VS. airway patent and lungs are clear on exam. will empirically treat with abx. she is stable for discharge home. counseled on importance and abx compliance. Differential Diagnosis Differential Diagnoses: The differential diagnosis associated with the presentation includes strep, covid, flu, rsv, other viral syndrome, bronchitis, pneumonia, no evidence of peritonsillar abcsess or retropharyngeal abscess External Record Review External record reviewed: Office record, Outpatient record and Prior outpatient labs Tests considered The following testing was considered but not selected: strep and covid tests Prescription Management I considered prescription management with: Antibiotic Critical Care Time Critical Care Time Critical Care Time: No Discharge Plan Discharge Clinical Impression: Strep pharyngitis Patient Disposition: Home, Self-Care Instructions: Strep Throat (DC) Additional Instructions: take the prescribed antibiotic as directed, complete the entire course and do not miss any doses use warm salt water gargles 3 times per day recommend over the counter chloraseptic spray or cepacol lozenges as needed for sore throat drink plenty of fluids If you develop new or worsening symptoms call 911 or come back to the ER for further evaluation. Prescriptions: New amoxicillin-pot clavulanate 875-125 mg tablet 1 tab PO BID Qty: 14 0RF ibuprofen 600 mg tablet 600 mg PO Q8H PRN (Reason: fever or pain) Qty: 20 0RF No Action amoxicillin 500 mg capsule 1,000 mg PO TID 5 Days Qty: 30 0RF tramadol 50 mg tablet 50 mg PO Q8H PRN (Reason: pain, severe) 3 Days Qty: 5 0RF Referrals: [facility] [Primary Care Provider] - Interventions: ED Discharge Assessment Last Done: 12/14/22 13:57 Discharge Date/Time: 12/14/22 13:58
== END 2022-12-14 13:58 | disposition home or self-care (01) ==
LOC: HO.ED 13:52
PROVIDERS: Emergency Provider Emergency Medicine
DX: J02.0 Streptococcal pharyngitis (principal)
CPT/HCPCS: 99282; 99283

== ENCOUNTER 2024-07-20 13:29 | Outpatient (REF) | payer MEDICAID, SELFPAY ==
[2024-07-20 16:05] LABS: MANUAL DIFF FLAG NO
[2024-07-20 16:16] LABS: Basophils Absolute Auto 0.1 X10*3/uL (0.0-0.2); Basophils Percent Auto 0.5 % (0-2); Hematocrit 38.4 % (37.0-47.0); Hemoglobin 12.7 g/dl (12.0-16.0); Imm Gran Abs Auto 0.03 X10*3/uL (0.00-0.03); Imm Gran Pct Auto 0.3 % (0.0-0.4); Lymphocytes Absolute Auto 2.3 X10*3/uL (1.2-4.9); Lymphocytes Percent Auto 25.2 % (20-40); Mean Corpuscular HGB Conc 33.1 g/dl (31.0-35.0); Mean Corpuscular Volume 81.7 fL (80.0-98.0); Mean Platelet Volume 11.2 fL (9.4-12.3); Monocytes Absolute Auto 0.6 X10*3/uL (0.1-1.2); Monocytes Percent Auto 6.9 % (2-11); Neutrophils Absolute Auto 6.2 x10*3/uL (2.0-8.3); Neutrophils Percent Auto 67.1 % (45-73); Platelet Count 275 X10*3/uL (160-400); Red Cell Distribution Width 13.2 % (11.0-16.0); White Blood Count 9.3 X10*3/uL (4.8-10.8)
[2024-07-20 16:27] LABS: Estimated Average Glucose 100 mg/dL; Hemoglobin A1C 108.9756 umol/L; Hemoglobin A1c % 5.1 % (<6.0); Total Hemoglobin (HGBA1C) 3369.3191 umol/L
--- OUTSIDE RECORDS SUMMARY | 2024-07-20 17:23 | XMS_ITS | Encounter Summary ---
Author Organization [facility] Address [address] [place] [address] Care Team Providers Care Hat Marker Name Role Phone Yesenia Fatima DO Primary Care Provider [phone] Encounter Details Date Type Department Care Team (Latest Contact Info) Description 07/17/2024 Travel Social History Tobacco Use Types Packs/Day Years Used Date Smoking Tobacco: Never Passive Smoke Exposure: Never Smokeless Tobacco: Never Comments Unknown Sex and Gender Information Value Date Recorded Sex Assigned at Female 04/20/2022 10:16 AM EDT Legal Sex Female 10:16 AM EDT Gender Identity Female 04/20/2022 10:16 AM EDT Sexual Orientation Straight 04/20/2022 10 :16 AM EDT documented as of this encounter Plan of Treatment Not on file documented as of this encounter Visit Diagnoses Not on filedocumented in this encounter Care Teams Hat Marker Relationship Specialty Start Date End Date Yesenia Fatima DO [address] [place] [address] PCP - General Family Medicine 05/24/24 documented as of this encounter
--- OUTSIDE RECORDS SUMMARY | 2024-07-20 17:23 | XMS_ITS | Encounter Summary ---
Author Organization [employer] Address [address] [facility] [address] [place] [address] Care Team Providers Care Resource Protection Specialist Name Role Phone Yesenia Fatima DO Primary Care Provider [phone] Reason for Visit * Reason Comments Fatigue Encounter Details Date Type Department Care Team ([facility] st Contact Info) Description 07/17/2024 7:00 PM EST Office Visit [facility] [address] [place] [address] [phone] Tam Reveles MD [address] [place] [address] [phone] Fatigue, unspecified type Social History Tobacco Use Types Packs/Day Years Used Date Smoking Tobacco: Never Passive Smoke Exposure: Never Smokeless Tobacco: Never Comments Unknown Sex and Gender Information Value Date Recorded Sex Assigned at Female 04/20/2022 10:16 AM EDT Legal Sex Female 10:16 AM EDT Gender Identity Female 04/20/2022 10:16 AM EDT Sexual Orientation Straight 04/20/2022 10 :16 AM EDT documented as of this encounter Last Filed Vital Signs Vital Sign Reading Time Taken Comments Blood Pressure 122/62 07/17/2024 6:48 PM EST Pulse 71 07/17/2024 6:48 PM EST Temperature 36.6 ??C (97.9 ??F) 07/17/2024 6:48 PM ES T Respiratory Rate 16 07/17/2024 6:48 PM EST Oxygen Saturation 98% 07/17/2024 6:48 PM EST Inhaled Oxygen Concentration - - Weight 77.1 kg (170 lb) 07/17/2024 6:48 PM EST Height - - Body Mass Index 29.64 01/13/2023 10:34 AM EDT documented in this encounter Progress Notes * Tam Reveles MD - 07/17/2024 7:00 PM EST Subjective History was provided by the patient. China Dolan is a 29 y.o. female who presents for evaluation of ongoing fatigue and weight gain for several months. States 10 lbs weight gain in the past few months. She is here with a child with URI symptoms. Denies F/C/N/V/D. Denies cough and congestion. Denies sore throat. No recent travel. Denies rash. Denies depression or anxiety. Objective Vitals: 07/17/24 1848 BP: 122/62 BP Location: Left arm Patient Position: Sitting BP Cuff Size: Adult Pulse: 71 Resp: 16 Temp: 97.9 ??F (36.6 ??C) TempSrc: Temporal SpO2: 98% Weight: 170 lb (77.1 kg) Physical Exam Vitals reviewed. Constitutional: General: She is not in acute distress. Appearance: Normal appearance. She is normal weight. She is not ill-appearing, toxic-appearing or diaphoretic. HENT: Head: Normocephalic and atraumatic. Right Ear: Tympanic membrane, ear canal and external ear normal. Left Ear: Tympanic membrane, ear canal and external ear normal. Nose: Nose normal. No congestion or rhinorrhea. Mouth/Throat: Mouth: Mucous membranes are moist. Pharynx: Oropharynx is clear. No oropharyngeal exudate or posterior oropharyngeal erythema. Eyes: Extraocular Movements: Extraocular movements intact. Conjunctiva/sclera: Conjunctivae normal. Pupils: Pupils are equal, round, and reactive to light. Cardiovascular: Rate and Rhythm: Normal rate and regular rhythm. Heart sounds: Normal heart sounds. Pulmonary: Effort: Pulmonary effort is normal. Breath sounds: Normal breath sounds. Musculoskeletal: General: Normal range of motion. Cervical back: Normal range of motion and neck supple. Lymphadenopathy: Cervical: No cervical adenopathy. Skin: General: Skin is warm and dry. Neurological: General: No focal deficit present. Mental Status: She is alert and oriented to person, place, and time. Mental status is at baseline. Psychiatric: Mood and Affect: Mood normal. Behavior: Behavior normal. Thought Content: Thought content normal. Judgment: Judgment normal. Office Visit on 07/17/2024 Component Date Value Ref Range Status Influenza A 07/17/2024 Negative Negative, Indeterminate Final Influenza B 07/17/2024 Negative Negative, Indeterminate Final Rapid COVID Ag 07/17/2024 Negative Final China was seen today for fatigue. Diagnoses and all orders for this visit: Fatigue, unspecified type - Influenza A (ID NOW Rapid Molecular) - Influenza B (ID NOW Rapid Molecular) - POCT Rapid COVID Ag - CBC auto differential; Future - Comprehensive Metabolic Panel; Future - TSH W/Reflex to FT4; Future - Hemoglobin A1c; Future - Vitamin D, 25-Hydroxy, Total, Immunoassay; Future Patient presents to [facility] due to fatigue and weight gain Here with her son who has URI symptoms Rapid COVID-19 and Influenza A/B negative Patient not ill-appearing and not in distress Will check CBC, CMP, TSH, A1c, and Vitamin D Denies depression or anxiety States she had numerous previous PCP's that have left the health center Will request assigned PCP's team RN to offer an appointment Indications for UC/ER use reviewed Advised to contact the clinic if persistent or worsening symptoms documented in this encounter Plan of Treatment Scheduled Orders Name Type Priority Associated Diagnoses Orde r Schedule Comprehensive Metabolic Panel Lab Routine Fatigue, unspecified type Expected: 07/17/2024 (Approximate), Expires: 07/17/2025 TSH W/Reflex to FT4 Lab Routine Fatigue, unspecified type Expected: 07/17/2024 (Approximate), Expires: 07/17/2025 Vitamin D, 25-Hydroxy, Total, Immunoassay Lab Routine Fatigue, unspecified type Expected: 07/17/2024 (Approximate), Expires: 07/17/2025 documented as of this encounter Procedures Procedure Name Priority Date/Time Associated Diagnosis Comments CBC WITH AUTO DIFFERENTIAL Routine 07/20/2024 1:32 PM EST Fatigue, unspecified type HEMOGLOBIN A1C Routine 07/20/2024 1:32 PM EST Fatigue, unspecified type POCT INFLUENZA B (ID NOW RAPID MOLECULAR) Routine 07/17/2024 6:59 PM EST Fatigue, unspecified type POCT INFLUENZA A (ID NOW RAPID MOLECULAR) Routine 07/17/2024 6:59 PM EST Fatigue, unspecified type POCT RAPID COVID ANTIGEN Routine 07/17/2024 6:52 PM EST Fatigue, unspecified type documented in this encounter Results * Hemoglobin A1c (07/20/2024 1:32 PM EST) Hemoglobin A1c 5.1 <6.0 % [facility] Comment:Hemoglobin A1C Refer ence Range Adults: 4.8 - 6.0 % Non diabetic: < 6.0 % Goal: < 7.0 %Additional Action Suggested: > 8.0 %Note: Hemoglobin A1c results are invalid for patients with abnormal amounts of HbF. Blood transfusions may impact the HbA1c concentration in the patient sample. Estimated Average Glucose 100 mg/dL [facility] Comment:eAG = Estimated ave rage glucose which is %A1C expressed asaverage glucose, using the formula of the E5Y-EenztgnZmzulpm Glucose study (ADAG), Diabetes Care, Vol.31,#8,Jan. 2007 Blood Venous blood specimen / Unknown 07/20/2024 1:32 PM EST 07/20/2024 3:59 PM EST us Tam Reveles MD LAB BLOOD ORDERABLES Final Resul t [facility] [address] [place] [address] [phone] * CBC auto differential (07/20/2024 1:32 PM EST) White Blood Count 9.3 4.8 - 10.8 X10*3/uL [facility] Red Blood Count 4.70 4.20 - 5.50 X10*6/uL [facility] Hemoglobin 12.7 12.0 - 16.0 g/dl [facility] Hematocrit 38.4 37.0 - 47.0 % [facility] Mean Corpuscular Volume 81.7 80.0 - 98.0 fL [facility] Mean Corpuscular Hemoglobin 27.0 27.0 - 33.0 pg [facility] Mean Corpuscular HGB Conc 33.1 31.0 - 35.0 g/dl [facility] Red Cell Distribution Width 13.2 11.0 - 16.0 % [facility] Platelet Count 275 160 - 400 X10*3/uL [facility] Mean Platelet Volume 11.2 9.4 - 12.3 fL [facility] Neutrophils Percent Auto 67.1 45 - 73 % [facility] Imm Gran Pct Auto 0.3 0.0 - 0.4 % [facility] Lymphocytes Percent Auto 25.2 20 - 40 % [facility] Monocytes Percent Auto 6.9 2 - 11 % [facility] Eosinophils Percent Auto 0.0 0 - 4 % [facility] Basophils Percent Auto 0.5 0 - 2 % [facility] NRBC Pct Auto 0.0 0.0 - 0.2 /100WBC [facility] Neutrophils Absolute Auto 6.2 2.0 - 8.3 x10*3/uL [facility] Imm Gran Abs Auto 0.03 0.00 - 0.03 X10*3/uL [facility] Lymphocytes Absolute Auto 2.3 1.2 - 4.9 X10*3/uL [facility] Monocytes Absolute Auto 0.6 0.1 - 1.2 X10*3/uL [facility] Eosinophils Absolute Auto 0.0 0.0 - 0.4 X10*3/uL [facility] Basophils Absolute Auto 0.1 0.0 - 0.2 X10*3/uL [facility] NRBC Abs Auto 0.000 0.0 - 0.012 X10*3/uL [facility] Blood Venous blood specimen / Unknown 07/20/2024 1:32 PM EST 07/20/2024 3:59 PM EST us Tam Reveles MD LAB BLOOD ORDERABLES Final Resul t [facility] [address] [place] [phone] * Influenza B (ID NOW Rapid Molecular) (07/17/2024 6:59 PM EST) [facility] Influenza B Negative Negative, Indeterminate [facility] Swab 07/17/2024 6:59 PM EST Tam Reveles MD POINT OF CARE TEST ENTER/EDIT OR DERABLES Final Result Performing Organization Address City/[facility]/ZIP Co de Phone Number [facility] [address] [place] [phone] * Influenza A (ID NOW Rapid Molecular) (07/17/2024 6:59 PM EST) [facility] Influenza A Negative Negative, Indeterminate [facility] Swab 07/17/2024 6:59 PM EST Tam Reveles MD POINT OF CARE TEST ENTER/EDIT OR DERABLES Final Result Performing Organization Address [facility]/ZIP Co de Phone Number [facility] [address] [place] [address] [phone] * POCT Rapid COVID Ag (07/17/2024 6:52 PM EST) [facility] Rapid COVID Ag Negative Swab 07/17/2024 6:52 PM EST Tam Reveles MD POINT OF CARE TEST ENTER/EDIT OR DERABLES Final Result documented in this encounter Visit Diagnoses Diagnosis Fatigue, unspecified type documented in this encounter Care Teams Resource Protection Specialist Relationship Specialty Start Date End Date Yesenia Fatima DO [address] [place] [address] [phone] PCP - General Family Medicine 05/24/24 documented as of this encounter
--- OUTSIDE RECORDS SUMMARY | 2024-07-20 17:23 | XMS_ITS | Patient Health Record ---
Author Organization [facility] Address [address] [place], [place] [id number] Care Team Providers Care Laundry Superintendent Name Role Phone Benefits, Referral Primary Care Provider Unavail able Maldonado Awad Unavailable [phone] Reason For Referral No Information Plan Of Treatment No Information Insurance Providers Payer Name Payer Address Payer Phone Subscriber Number Group Number Insured Name Patient Relationship to Insured Coverage Start Date Coverage End Date [place] Medicaid Standard [address] [place] [address] [id number] China Dolan Self - patient is the insured 3
--- OUTSIDE RECORDS SUMMARY | 2024-07-20 17:23 | XMS_ITS | Clinical Summary ---
Author Organization [facility] Address [address] [place] [address] Care Team Providers Care Domestic Housekeeper Name Role Phone Unavailable Primary Care Provider Unavailabl e Social History Tobacco Use Types Packs/Day Years Used Date Smoking Tobacco: Never Assessed Sex and Gender Information Value Date Recorded Sex Assigned at Not on file Gender Identity Not on file Sexual Orientation Not on file Plan of Treatment Health Maintenance Due Date Last Done Comments DTaP,Tdap,and Td Vaccines (1 - Tdap) 2016 Hepatitis B Vaccines (1 of 3 - 19+ 3-dose series) 2016 Cervical Cancer Screening: P ap Smear 2018 Depression Screening 05/19/2022 HIV Screening 05/19/2022 Hepatitis C Screening 05/19/2022 Social Influencers of Health Screening 05/19/2022 COVID-19 Vaccine ( - 2023-2 5 season) 2024 Influenza Vaccine (#1) 2024 HIB Vaccines Aged Out No longer eligi ble based on patient's age to complete this topic HPV Vaccines Aged Out No longer eligi ble based on patient's age to complete this topic Hepatitis A Vaccines Aged Out No long er eligible based on patient's age to complete this topic IPV Vaccines Aged Out No longer eligi ble based on patient's age to complete this topic MMR Vaccines Aged Out No longer eligi ble based on patient's age to complete this topic Meningococcal ACWY Vaccine Aged Out N o longer eligible based on patient's age to complete this topic Pneumococcal Vaccine: Pediat rics (0 to 5 Years) and At-Risk Patients (6 to 64 Years) Aged Out No longer eligible b ased on patient's age to complete this topic RSV Immunization Patients Un maribel 20 months Aged Out No longer eligible b ased on patient's age to complete this topic Varicella Vaccines Aged Out No longer eligible based on patient's age to complete this topic
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
--- OUTSIDE RECORDS SUMMARY | 2024-07-20 17:23 | XMS_ITS ---
Author Organization [facility] Address [address] [place], [place] [id number] Care Team Providers Care Lining Repairer Name Role Phone Benefits, Referral Primary Care Provider Unavail able Maldonado Awad Unavailable [phone] Encounters Encounter Location Date Provider Diagnosis [facility] [address] [place] [phone] 05/24/2023 Maldonado Awad Plan Of Treatment No Information Progress Notes * Олег HENDRICKSesseDOB:1995 (28 yo F)Acc No.[id number]:05/24/2023 Case Management Patient:?China Hendricks Provider:?Maldonado Harvey :1995???Age:28 Y???Sex:Female D ate:05/24/2023 Address:[address] [facility] Pcp:Referral Benefits Subjective: * Chief Complaints: * ??? * HPI: ???Social Service:?Date of encounter?05/24/2023.?Referral Source?walk-in, self, new client.?Interpretation for medical provider?Benefits, housing, CM help with an?Intake Process for the client..?Action Taken?Housing?Other,?Food?Other.?Advocacy?Phone call(s) for community resources, CM provide the food pantry list and will requested the [employer] Gift Card for the client.?Follow-up Required:?yes, Type of follow-up: oriana on 05/26/2023.?Pt comprehension?Pt agrees with plan, Patient understood process and assisted with process.?Action taken (old)?Letter given to patient after photo copy made..? Client need an apartment or house with 5 room, Client has [address]. * Medical History:? Objective: Assessment: Plan: * Treatment: * Images: Billing Information: * Visit Code:? * Procedure Codes:? Care Plan Details* * Sign off status: Completed true * Provider:?Maldonado Harvey Date:?05/24/2023 Generated for Garrett prieto/Cara/Yohana on:?07/20/2024 05:23 PM EST History and Physical Notes * HPI (History of Present Illness) Category Sub-Category Detail Notes Social Service Referral Source walk-in, self, n ew client Interpretation for medical provider eren Louis, CM help with an Intake Process for the client. Action taken (old) Letter given to mansoor tran after photo copy made. Advocacy Phone call(s) for co mmunity resources, CM provide the food pantry list and will requested the [employer] Gift Card for the client Follow-up Required: yes, Type of follow- up: oriana on 05/26/2023 Pt comprehension Pt agrees with plan, Patient understood process and assisted with process Action Taken Housing: Other Food: Other Date of encounter 05/24/2023
--- OUTSIDE RECORDS SUMMARY | 2024-07-20 17:23 | XMS_ITS | Encounter Summary ---
Author Organization [email or web address] Address [address] [place] [address] [address] [address] Care Team Providers Care Parts Remover Name Role Phone Yesenia Fatima DO Primary Care Provider [phone] Encounter Details Date Type Department Care Team (Late st Contact Info) Description 07/17/2024 Telephone [facility] [address] [place] [address] [phone] Tam Reveles MD [address] [place] [phone] Social History Tobacco Use Types Packs/Day Years Used Date Smoking Tobacco: Never Passive Smoke Exposure: Never Smokeless Tobacco: Never Comments Unknown Sex and Gender Information Value Date Recorded Sex Assigned at Female 04/20/2022 10:16 AM EDT Legal Sex Female 10:16 AM EDT Gender Identity Female 04/20/2022 10:16 AM EDT Sexual Orientation Straight 04/20/2022 10 :16 AM EDT documented as of this encounter Miscellaneous Notes * Telephone Encounter - Tam Reveles MD - 07/17/2024 7:54 PM EST PCP appointment request. documented in this encounter Plan of Treatment Not on file documented as of this encounter Visit Diagnoses Not on filedocumented in this encounter Care Teams Parts Remover Relationship Specialty Start Date End Date Yesenia Fatima DO [address] [place] [address] [phone] PCP - General Family Medicine 05/24/24 documented as of this encounter
--- OUTSIDE RECORDS SUMMARY | 2024-07-20 17:24 | XMS_ITS | Encounter Summary ---
Author Organization [employer] Address [address] [place] [address] [place] [address] Care Team Providers Care Program Services Assistant Name Role Phone Yesenia Fatima DO Primary Care Provider [phone] Reason for Visit * Reason Onset Date Comments telephone call 06/20/2024 Encounter Details Date Type Department Care Team (Late st Contact Info) Description 06/20/2024 Telephone [facility] [address] [place] [address] [phone] Yesenia Fatima DO [address] [place], [place] [phone] telephone call Social History Tobacco Use Types Packs/Day Years [...] encounter Miscellaneous Notes * Telephone Encounter - Tiffany Courtney - 06/20/2024 9:54 AM EST Called pt to inform them that there appt has been cancelled due to the provider being out , if pt would like to rs appt please give us a call back to rs , pt put on recall. documented in this encounter Plan of Treatment Not on file documented as of this encounter Visit Diagnoses Not on filedocumented in this encounter Care Teams Program Services Assistant Relationship Specialty Start Date End Date Yesenia Fatima DO [address] [place] [address] PCP - General Family Medicine 05/24/24 documented as of this encounter
[2024-07-20 18:22] LABS: Alanine Aminotransferase 55 U/L (0-31); Albumin Level 4.4 g/dL (3.5-5.0); Anion Gap 11 (12-20); Aspartate Amino Transferase 39 U/L (5-31); Bilirubin Total 0.2 mg/dL (0.0-1.0); Blood Urea Nitrogen 13 mg/dL (9-16); Calcium 9.1 mg/dL (8.4-10.2); Carbon Dioxide 25 mmol/L (22-29); Chloride 104 mmol/L (96-108); Estimated Glomerular Filt Rate > 60; Glucose Random 92 mg/dL (60-115); Potassium 3.8 mmol/L (3.3-5.1); Sodium 136 mmol/L (135-145); Total Protein 7.4 g/dL (6.5-8.0)
[2024-07-20 18:52] LABS: Alkaline Phosphatase 57 U/L (39-117); TSH reflex Free T4 2.23 uIU/mL (0.32-4.0); Vitamin D 25-OH Total 24.9 ng/mL (>30)
== END 2024-07-20 13:30 | disposition home or self-care (01) ==
LOC: HO.HHCL 13:29
PROVIDERS: Visit Provider Family Medicine
DX: R53.83 Other fatigue (principal)
CPT/HCPCS: 36415; 80053; 82306; 83036; 84443; 85025

== ENCOUNTER 2024-07-24 14:11 | Outpatient (REF) | payer MEDICAID, SELFPAY ==
--- OUTSIDE RECORDS SUMMARY | 2024-07-24 15:52 | XMS_ITS | Encounter Summary ---
Author Organization [employer] Address [address] [facility] [address] [place] [address] Care Team Providers Care Stippler Name Role Phone Yesenia Fatima DO Primary Care Provider Reason for Visit * Reason Comments Fatigue Encounter Details Date Type Department Care Team ([facility] st Contact Info) Description 07/17/2024 7:00 PM EST Office Visit [facility] [address] [place] [address] [phone] Tam Reveles MD [address] [place] [address] [phone] Fatigue, unspecified type Social History Tobacco Use [...] 25-Hydroxy, Total, Immunoassay; Future Patient presents to [facility] due to fatigue and weight gain Here with her son who has URI symptoms Rapid COVID-19 and Influenza A/B negative Patient not ill-appearing and not in distress Will check CBC, CMP, TSH, A1c, and Vitamin D Denies depression or anxiety States she had numerous previous PCP's that have left the [facility] Will request assigned PCP's team RN to offer an appointment Indications for UC/ER use reviewed Advised to contact the clinic if persistent or worsening symptoms documented in this encounter Plan of Treatment Upcoming Encounters Date Type Department Care Team (Late st Contact Info) Description 08/30/2024 11:30 AM EDT Office Visit [facility] [address] [place] [address] Yesenia Fatima DO [address] [place] [address] documented as of this encounter Procedures Procedure Name Priority Date/Time Associated Diagnosis Comments VITAMIN D,25-OH,TOTAL,IA Routine 07/20/2024 1:32 PM EST Fatigue, unspecified type TSH W/REFLEX TO FT4 Routine 07/20/2024 1 :32 PM EST Fatigue, unspecified type CBC WITH AUTO DIFFERENTIAL Routine 07/20/2024 1:32 PM EST Fatigue, unspecified type HEMOGLOBIN A1C Routine 07/20/2024 1:32 PM EST Fatigue, unspecified type COMPREHENSIVE METABOLIC PANEL Routine 07/20/2024 1:32 PM EST Fatigue, unspecified type POCT INFLUENZA B (ID NOW RAPID MOLECULAR) Routine 07/17/2024 6:59 PM EST Fatigue, unspecified type POCT INFLUENZA A (ID NOW RAPID MOLECULAR) Routine 07/17/2024 6:59 PM EST Fatigue, unspecified type POCT RAPID COVID ANTIGEN Routine 07/17/2024 6:52 PM EST Fatigue, unspecified type documented in this encounter Results * (ABNORMAL) Vitamin D, 25-Hydroxy, Total, Immunoassay (07/20/2024 1:32 PM EST) Vitamin D 25-OH Total 24.9(L) >30 ng/mL [facility] Comment:Health Based Referen ce Values*< 20 ng/mL Kwmqmevyf48-99 ng/mL Insufficient> 30 ng/mL Sufficient*Aury NEWBY. N Engl J Med. 2007;357:266-280Care must be taken in interpreting Vitamin D results fromdifferent laboratories and methodologies. Published datademonstrated that results from patients undergoinghemodialysis may show a negative bias when tested withvarious automated 25-OH vitamin D assays when compared toLC-MS/MS.When testing samples from patients whose predominant form ofVitamin D is Vitamin D2, such as patients receiving VitaminD2 supplementation, results that are subtherapeutic shouldbe confirmed with another method such as LC-MS/MS. Blood Venous blood specimen / Unknown 07/20/2024 1:32 PM EST 07/20/2024 3:59 PM EST us Tam Reveles MD LAB BLOOD ORDERABLES Final Resul t [facility] [address] [place] [phone] * Hemoglobin A1c (07/20/2024 1:32 PM EST) Hemoglobin A1c 5.1 <6.0 % [facility] Comment:Hemoglobin A1C Refer ence Range Adults: 4.8 - 6.0 % Non diabetic: < 6.0 % Goal: < 7.0 %Additional Action Suggested: > 8.0 %Note: Hemoglobin A1c results are invalid for patients with abnormal amounts of HbF. Blood transfusions may impact the HbA1c concentration in the patient sample. Estimated Average Glucose 100 mg/dL [facility] Comment:eAG = Estimated ave rage glucose which is %A1C expressed asaverage glucose, using the formula of the A6D-HfafbmlWrwqqgj Glucose study (ADAG), Diabetes Care, Vol.31,#8,2007 Blood Venous blood specimen / Unknown 07/20/2024 1:32 PM EST 07/20/2024 3:59 PM EST Tam Reveles MD LAB BLOOD ORDERABLES Final Resul t Performing Organization Address [facility]/ZIP Co de Phone Number [facility] [address] [place] [phone] * TSH W/Reflex to FT4 (07/20/2024 1:32 PM EST) Pathologist [facility] TSH reflex Free T4 2.23 0.32 - 4.0 uIU/mL [facility] Blood Venous blood specimen / Unknown 07/20/2024 1:32 PM EST 07/20/2024 3:59 PM EST us Tam Reveles MD LAB BLOOD ORDERABLES Final Resul t Performing Organization Address [facility]/ZIP Co de Phone Number [facility] [address] [place] [phone] * (ABNORMAL) Comprehensive Metabolic Panel (07/20/2024 1:32 PM EST) Pathologist [facility] Sodium 136 135 - 145 mmol/L [facility] Potassium 3.8 3.3 - 5.1 mmol/L [facility] Chloride 104 96 - 108 mmol/L [facility] Carbon Dioxide 25 22 - 29 mmol/L [facility] Anion Gap 11(L) 12 - 20 [facility] Urea Nitrogen (BUN) 13 9 - 16 mg/dL [facility] Creatinine, Serum 0.76 0.5 - 1.4 mg/dL [facility] Estimated Glomerular Filt Rate >60 [facility] Comment:Chronic Kidney Disea se: Estimated GFR < 60 mL/min/1.07n4Dlfyqx Kidney Disease: Estimated GFR < 15 mL/min/1.73m2 Glucose 92 60 - 115 mg/dL [facility] Calcium 9.1 8.4 - 10.2 mg/dL [facility] Bilirubin, Total 0.2 0.0 - 1.0 mg/dL [facility] Aspartate Amino Transferase 39(H) 5 - 31 U/L [facility] Alanine Aminotransferase 55(H) 0 - 31 U/L [facility] Total Protein 7.4 6.5 - 8.0 g/dL [facility] Albumin Level 4.4 3.5 - 5.0 g/dL [facility] Alkaline Phosphatase 57 39 - 117 U/L [facility] Blood Venous blood specimen / Unknown 07/20/2024 1:32 PM EST 07/20/2024 3:59 PM EST us Tam Reveles MD LAB BLOOD ORDERABLES Final Resul t [facility] [address] [place] [phone] * CBC auto differential (07/20/2024 1:32 PM EST) White Blood Count 9.3 4.8 - 10.8 X10*3/uL [facility] Red Blood Count 4.70 4.20 - 5.50 X10*6/uL [facility] Hemoglobin 12.7 12.0 - 16.0 g/dl [facility] Hematocrit 38.4 37.0 - 47.0 % [facility] Mean Corpuscular Volume 81.7 80.0 - 98.0 fL [facility] Mean Corpuscular Hemoglobin 27.0 27.0 - 33.0 pg [facility] Mean Corpuscular HGB Conc 33.1 31.0 - 35.0 g/dl [facility] Red Cell Distribution Width 13.2 11.0 - 16.0 % [facility] Platelet Count 275 160 - 400 X10*3/uL [facility] Mean Platelet Volume 11.2 9.4 - 12.3 fL [facility] Neutrophils Percent Auto 67.1 45 - 73 % [facility] Imm Gran Pct Auto 0.3 0.0 - 0.4 % [facility] Lymphocytes Percent Auto 25.2 20 - 40 % [facility] Monocytes Percent Auto 6.9 2 - 11 % [facility] Eosinophils Percent Auto 0.0 0 - 4 % [facility] Basophils Percent Auto 0.5 0 - 2 % [facility] NRBC Pct Auto 0.0 0.0 - 0.2 /100WBC [facility] Neutrophils Absolute Auto 6.2 2.0 - 8.3 x10*3/uL [facility] Imm Gran Abs Auto 0.03 0.00 - 0.03 X10*3/uL [facility] Lymphocytes Absolute Auto 2.3 1.2 - 4.9 X10*3/uL [facility] Monocytes Absolute Auto 0.6 0.1 - 1.2 X10*3/uL [facility] Eosinophils Absolute Auto 0.0 0.0 - 0.4 X10*3/uL [facility] Basophils Absolute Auto 0.1 0.0 - 0.2 X10*3/uL [facility] NRBC Abs Auto 0.000 0.0 - 0.012 X10*3/uL [facility] Blood Venous blood specimen / Unknown 07/20/2024 1:32 PM EST 07/20/2024 3:59 PM EST us Tam Reveles MD LAB BLOOD ORDERABLES Final Resul t [facility] [address] [place] [phone] * Influenza B (ID NOW Rapid Molecular) (07/17/2024 6:59 PM EST) Pathologist [facility] Influenza B Negative Negative, Indeterminate [facility] Swab 07/17/2024 6:59 PM EST Tam Reveles MD POINT OF CARE TEST ENTER/EDIT OR DERABLES Final Result Performing Organization Address [facility] Co de Phone Number [facility] [address] [place] [phone] * Influenza A (ID NOW Rapid Molecular) (07/17/2024 6:59 PM EST) [facility] Influenza A Negative Negative, Indeterminate [facility] Swab 07/17/2024 6:59 PM EST Tam Reveles MD POINT OF CARE TEST ENTER/EDIT OR DERABLES Final Result Performing Organization Address [facility] Co de Phone Number [facility] [address] [place] [phone] * POCT Rapid COVID Ag (07/17/2024 6:52 PM EST) Pathologist [facility] Rapid COVID Ag Negative Swab 07/17/2024 6:52 PM EST Tam Reveles MD POINT OF CARE TEST ENTER/EDIT OR DERABLES Final Result documented in this encounter Visit Diagnoses Diagnosis Fatigue, unspecified type documented in this encounter Care Teams Stippler Relationship Specialty Start Date End Date Yesenia Fatima DO [address] [place] [phone] PCP - General Family Medicine 05/24/24 documented as of this encounter
--- OUTSIDE RECORDS SUMMARY | 2024-07-24 15:52 | XMS_ITS | Encounter Summary ---
Author Organization [employer] Address [address] [facility] [address] [place] [address] Care Team Providers Care Draughtsman Name Role Phone Yesenia Fatima DO Primary Care Provider + [phone] Reason for Visit * Reason Onset Date Comments Results 07/21/2024 Encounter Details Date Type Department Care Team (Late st Contact Info) Description 07/21/2024 Telephone [facility] [address] [place], [place] [phone] Yesenia Fatima DO [address] [place] [address] Results Social History Tobacco Use Types Packs/Day Years [...] encounter Miscellaneous Notes * Telephone Encounter - Nida Walter RN - 07/22/2024 10:44 AM EST T/C placed to pt re below lab results and POC. Informed vit D low. T/C placed to pt re below lab results and POC. Vit D absorbed from the sun, deficiencies very common in this geographical area. Informed provider sent supplement to her pharmacy to be taken daily. Informed LFTs also elevated. To further evaluate, provider has ordered more blood work that is not fasting and can be completed at her convenience as well as an abdominal US to look at her liver. Informed she will get a call to book US. If she doesn't hear from anyone to schedule within 2 weeks, let us know. Booked follow up with Kushal for 08/30. Will aslo send message to try to get TP appt RAI. Pt verbalized understanding and denied having any further questions or concerns at this time. * Telephone Encounter - Tam Reveles MD - 07/22/2024 9:19 AM EST Nida, could you contact the patient. I just sent in Rx for Vitamin D 1000 units daily. Also I put in the order for abdominal ultrasound and hepatitis A/B/C panel (blood draw). It looks like she was assigned Dr. Fatima as a new PCP. Can you request for a follow up with new PCP in 6-8 weeks. * Telephone Encounter - Josh Titus - 07/21/2024 1:37 PM EST TC from pt requesting call back regarding Results. Type of results: Blood Test Date when done: 07/20 Facility: [facility] Contact pt at [phone] documented in this encounter Plan of Treatment Upcoming Encounters Date Type Department Care Team (Late st Contact Info) Description 08/30/2024 11:30 AM EDT Office Visit [facility] [address] [place] [address] Yesenia Fatima DO [address] [place] [address] documented as of this encounter Visit Diagnoses Not on filedocumented in this encounter Care Teams Draughtsman Relationship Specialty Start Date End Date Yesenia Fatima DO [address] [place] [address] PCP - General Family Medicine 05/24/24 documented as of this encounter
--- OUTSIDE RECORDS SUMMARY | 2024-07-24 15:52 | XMS_ITS | Encounter Summary ---
Author Organization [employer] Address [address] [facility] [address] [place] [address] Care Team Providers Care Boiler Welder Name Role Phone SoilaYesenia cain Primary Care Provider Reason for Referral * Imaging (Routine) - Authorized Specialty Diagnoses / Procedures Referred By Contac jt Referred To Contact Radiology Diagnoses Elevated liver enzymes Procedures US Abdomen Complete Tam Reveles MD [address] [place] [phone] Phone: tel: fax: [facility] [address] [place] [address], [address] [place] [address] Phone: tel: fax: Referral ID Status Reason Start Date Expiration Date V isits Requested Visits Authorized [id number] Authorized 07/22/2024 07/22/2025 1 1 Encounter Details Date Type Department Care Team ([facility] Contact Info) Description 07/22/2024 Telephone [facility] [address] [place] [address] [phone] Tam Reveles MD [address] [place] [phone] Social History Tobacco Use Types Packs/Day Years [...] Encounter - Tam Reveles MD - 07/22/2024 9:11 AM EST Seen in [facility] for fatigue. Found to have low Vitamin D and elevated liver enzymes. Will supplement Vitamin D. Check Hepatitis panel and Abdominal U/S. Encouraged to schedule an appointment with her newPCP in 6-8 weeks. Diagnoses and all orders for this visit: Vitamin D deficiency (Primary) - cholecalciferol (Vitamin D-3) 25 MCG (1000 UT) tablet; Take 1 tablet (25 mcg) by mouth Once per day. Elevated liver enzymes - Hepatitis A,B,C Profile; Future - US Abdomen Complete; Future documented in this encounter Plan of Treatment Upcoming Encounters Date Type Department Care Team (Late st Contact Info) Description 08/30/2024 11:30 AM EDT Office Visit [facility] [address] [place] [address] Yesenia Fatima DO [address] [place] [address] Scheduled Orders Name Type Priority Associated Diagnoses Orde r Schedule Hepatitis A,B,C Profile Lab Routine Elevated liver enzymes Expected: 07/22/2024, Expires: 07/22/2025 US Abdomen Complete Imaging Routine Elevated liver enzymes Expected: 07/22/2024, Expires: 07/22/2025 documented as of this encounter Visit Diagnoses Diagnosis Vitamin D deficiency- Primary Elevated liver enzymes Other nonspecific abnormal serum enzyme levels documented in this encounter Care Teams Boiler Welder Relationship Specialty Start Date End Date Yesenia Fatima DO [address] [place] [address] PCP - General Family Medicine 05/24/24 documented as of this encounter
--- OUTSIDE RECORDS SUMMARY | 2024-07-24 15:52 | XMS_ITS | Encounter Summary ---
Author Organization [employer] [facility] Address [address] [place] [address] [address], [place] [address] Care Team Providers Care Financial Reporting Advisor Name Role Phone Yesenia Fatima DO Primary Care Provider Encounter Details Date Type Department Care Team [...] as of this encounter Plan of Treatment Upcoming Encounters Date Type Department Care Team (Late st Contact Info) Description 08/30/2024 11:30 AM EDT Office Visit [facility] [address] [place] [address] Yesenia Fatima DO [address] [place] [address] documented as of this encounter Visit Diagnoses Not on filedocumented in this encounter Care Teams Financial Reporting Advisor Relationship Specialty Start Date End Date Yesenia Fatima DO [address] [place] [address] PCP - General Family Medicine 05/24/24 documented as of this encounter
--- OUTSIDE RECORDS SUMMARY | 2024-07-24 15:52 | XMS_ITS | Encounter Summary ---
Author Organization [employer] Address [address] [place] [address] [address] [address] Care Team Providers Care Paving Plant Operator Name Role Phone Yesenia Fatima DO Primary Care Provider [phone] Encounter Details Date Type Department Care Team (Late st Contact Info) Description 07/17/2024 Telephone [facility] [address] [place] [address] [phone] Tam Reveles MD [address] [place] [address] [phone] Social History Tobacco Use Types Packs/Day Years [...] Description 08/30/2024 11:30 AM EDT Office Visit [facility] [address] [place] [address] [phone] Yesenia Fatima DO [address] [place] [address] [phone] documented as of this encounter Visit Diagnoses Not on filedocumented in this encounter Care Teams Paving Plant Operator Relationship Specialty Start Date End Date Yesenia Fatima DO [address] [place] [address] PCP - General Family Medicine 05/24/24 documented as of this encounter
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
--- OUTSIDE RECORDS SUMMARY | 2024-07-24 15:53 | XMS_ITS | Clinical Summary ---
Author Organization [facility] ity Address [address] [place] [address] Care Team Providers Care Home Health Care Provider Name Role Phone Unavailable Primary Care Provider [...]
[2024-07-25 08:29] LABS: HBS Num1 33.67 mIU/mL (0-7.99); HBc Num1 0.11 S/CO (0.00-0.79); HBsAGNum1 0.33 S/CO (0.00-0.99); Hepatitis A Antibody IgM 0.15 Index (0-0.79); Hepatitis B Core Antibody Nonreactive (Nonreactive); Hepatitis B Surface Antigen Negative (Negative); ~HepC Num1 0.07 S/CO (0.00-0.79); ~Hepatitis A Antibody IgM Nonreactive (Nonreactive); ~Hepatitis B Surface Antibody REACTIVE (Nonreactive); ~Hepatitis C Antibody Nonreactive (Nonreactive)
== END 2024-07-24 14:12 | disposition home or self-care (01) ==
LOC: HO.HHCL 14:11
PROVIDERS: Visit Provider Family Medicine
DX: R74.8 Abnormal levels of other serum enzymes (principal)
CPT/HCPCS: 36415; 86704; 86706; 86709; 86803; 87340